=== PATIENT | female | born 1980 | race Caucasian/White ===

== ENCOUNTER 2017-11-07 18:39 | Inpatient (IN) | payer MEDICAID, SELFPAY ==
[2017-11-07] VITALS (9 sets, daily range): BP systolic 94–108; BP diastolic 53–63; PULSE 64–72; RESP 12–18; TEMP 36.9–37.2; O2SAT 86–96; BMI 24.8; BMI 23.8
[2017-11-07] MEDS: Ipratropium/Albuterol Sulfate 3 ML AMPUL.NEB INHALATION (19:34)
[2017-11-07 19:39] LABS: Absolute Lymphocyte Count 1.18 X10^3/ul (0.83-4.51); Absolute Neutrophil Count 4.3 X10^3/uL (2.0-7.7); Eosinophil# 0.01 X10^3/uL; Eosinophils% 0.2 % (0-5); Hematocrit 35.8 % (37-47); Hemoglobin 12.4 g/dl (12.0-15.0); Lymphocyte # 1.18 X10^3/ul (4.0); Lymphocyte % 19.5 % (19-41); Mean Corp Hgb Conc 34.6 g/gl (32-36); Mean Corpuscular Hgb 33.5 pg (27.0-32.0); Mean Corpuscular Volume 96.8 fL (81-99); Mean Platelet Vol. 11.9 fl (6.2-12.0); Monocyte# 0.51 X10^3/uL; Monocyte% 8.4 % (0-10); Neutrophil # 4.34 X10^3/uL (2.7-7.7); Neutrophil % 71.6 % (47-70); Platelet Count 77 K/mm3 (150-450); RBC Distribution Width SD 52.8 fl (35.1-43.9); White Blood Count 6.1 K/mm3 (4.4-11.0)
[2017-11-07 19:40] LABS: POSITIVE COUNT NO; POSITIVE DIFFERENTIAL NO; POSITIVE MORPHOLOGY NO
[2017-11-07] MEDS: Ketorolac 30 MG/ML Syringe IV (19:40)
[2017-11-07] MEDS: Ondansetron 4 MG/2 ML Vial IV (19:40)
[2017-11-07] MEDS: 0.9% Normal Saline 1,000 ML 1000 ML IV (19:40)
--- NOTE | 2017-11-07 19:50 | RAD_ITS ---
STUDY: X-RAY CHEST REASON FOR EXAM: Female, 37 years old. Cough TECHNIQUE: Frontal and lateral views of the chest. COMPARISON: 09/30/2017. FINDINGS: The lungs are clear and expanded. There is no demonstrated pleural abnormality. Normal size heart. Normal mediastinum and jayashree. Normal visualized pulmonary arteries. Normal visualized aortic arch and descending thoracic aorta. Normal visualized thoracic spine. Normal visualized ribs, clavicles, and shoulders. There is no demonstrated abnormality of the visualized soft tissue structures of the upper abdomen. RAD/Chest PA and Lateral IMPRESSION: Normal x-ray examination of the chest. Electronically Signed: Dieudonne Gonzalez MD at 20:10 EST , Service support ,
[2017-11-07 19:59] LABS: AST(SGOT) 293 U/L (15-37); Alanine Aminotransfer ALT/SGPT 59 U/L (13-56); Albumin, Serum 3.1 g/dL (3.2-5.0); Alkaline Phosphatase 117 U/L (45-117); Anion Gap 18 (5-15); BUN 52 mg/dL (7-18); BUN/Creat Ratio 44.1 RATIO (10-20); Bilirubin, Direct 2.04 mg/dL (0.00-0.30); Chloride 68 mmol/L (98-107); Creatinine, Serum 1.18 mg/dL (0.55-1.02); EST Glomerular Filtration Rate 54 mL/min (>60); Est Glom Filt Rate - Afr Amer 65 mL/min (>60); Estimated Creatinine Clearance 52.65 ml/min; Globulin 4.2 g/dL (2.2-4.2); Glucose 85 mg/dL (74-106); Lipase 707 U/L (73-393); Potassium 2.2 mmol/L (3.5-5.1); Protein, Total 7.3 g/dL (6.4-8.2); Sodium Level 119 mmol/L (136-145)
--- NOTE | 2017-11-07 20:03 | ED.RN ---
lab called with critical results. sodium level 119. Potassium level 2.2. Chloride level 68. Dr. Knight made aware. No new orders at this time
[2017-11-07 20:51] LABS: Magnesium 2.1 mg/dL (1.6-2.6)
--- NOTE | 2017-11-07 21:57 | PCM.HP.STD ---
Problem List (1) Alcohol withdrawal Status: Acute Qualifiers: Complication of substance-induced condition: uncomplicated Qualified Code(s): F10.230 - Alcohol dependence with withdrawal, uncomplicated (2) Pancreatitis, alcoholic, acute Status: Chronic Qualifiers: Acute pancreatitis complication: no infection or necrosis Qualified Code(s): K85.20 - Alcohol induced acute pancreatitis without necrosis or infection (3) Thrombocytopenia Status: Chronic (4) Essential hypertension Status: Chronic (5) Hypokalemia Status: Acute (6) URI (upper respiratory infection) Status: Acute History of Present Illness Date of Admission: 11/07/17 Chief Complaint: Hyponatremia The patient is a 37 year old F came to ER with complaint of generalized weakness and recent diagnosis of pancreatitis. She is having abdominal pain for last few weeks. She has alcoholic pancreatitis history. She also had cholecystectomy and was complicated with CBD injury which later required choledochojejunostomy. She drinks alcohol heavily with history of multiple episodes of relapses in the past. She drinks 1 pint of vodka for last 3 weeks. She also has chronic cough for more than 1 month but it is worse for last 1 week. She smokes three fourth pack of cigarettes every day. Denies fever or chills, sore throat. She was last admitted in September 28 and discharged on April 01, 2018 for acute alcoholic pancreatitis along with alcohol withdrawal. At that time patient had CT abdomen shows hepatosplenomegaly with diffuse fatty infiltration of liver. No evidence of acute abdominal or pelvic abnormality. She also had multiple episodes of vomiting, gastric in nature on past Sunday and has not been eating food or drinking water and alcohol. In ED, she was found to have severe hyponatremia, sodium 119, K2.2 and chloride 68, anion gap 18 and bicarb 33. BUN is high, 52 and creatinine 1.18. Ammonia 47. Alcohol level is high. [] Past Medical History Past Medical History (Chronic Problems): Chronic Problems Thrombocytopenia (Chronic) Essential hypertension (Chronic) Pancreatitis, alcoholic, acute (Chronic) Allergies No Known Allergies Allergy (Verified 11/07/17 18:44) Home Medications: Ambulatory Orders Medication Instructions Recorded Lisinopril 20 mg PO DAILY 09/28/17 Chlordiazepoxide [Librium] 25 mg PO TID PRN PRN #30 capsule 10/02/17 Metoprolol Tartrate [Lopressor 25 mg PO BID #60 tab 10/02/17 (beta avelino)] Nicotine [Nicoderm Cq] 21 mg TRANSDERM. DAILY #30 patch 10/02/17 Sertraline HCl [Zoloft] 50 mg PO DAILY #30 tab 10/02/17 Surgical History: cholecystectomy Smoking Status: Current every day smoker - *Family History Maternal History Items: No pertinent history Review of Systems Constitutional: Reports: Anorexia, Malaise, Weakness, Fatigue HEENT: Denies: Head Aches, Sinus Congestion, Sinus Drainage Cardiovascular: Denies: Chest Pain, Palpitations Respiratory: Reports: Cough, Sputum production, Wheezing. Denies: Shortness of breath at rest Gastrointestinal: Reports: Abdominal Pain, Constipation, Nausea, Vomiting. Denies: Hematemesis, Hematochezia Genitourinary: Denies: Dysuria Musculoskeletal: Denies: Joint Pain, Joint Tenderness Skin: Denies: Rash, Wounds Neurological: Reports: Incoordination, Tremor. Denies: Focal weakness, Numbness, Tingling Psychiatric: Denies: Anxiety, Depression, Homicidal Ideations, Suicidal Ideations Hematologic/ Lymphatic: Denies: Easy Bruising, Easy Bleeding VTE Information - Inpt Only VTE Present on Admission: No VTE Mechan Device Prophylaxis: SCD's VTE Pharm Prophylaxis ordered?: No Reason prophylaxis not ordered:: Procedure Not Indicated Patient Problems: Active and Suspected Problems Hypokalemia (Acute) URI (upper respiratory infection) (Acute) - Physical Exam General: Oriented x3, Cooperative, Lethargic HEENT: Atraumatic, PERRLA, EOMI, Normocephalic, - - Icterus present Oral: Dry Mucosa, - - No oropharyngeal erythema. Neck: Supple, No JVD, Negative Carotid Bruits Lungs: Diminished, Wheezes Cardiovascular: Regular rate, Regular Rhythm, Normal S1, Normal S2, No murmurs Abdomen: Bowel Sounds Present, Soft, Non Tender, Non-Distended Extremities: No edema, Capillary Refill Less than 3 Seconds Skin: No rashes, No breakdown Musculoskeletal: No Tenderness to Palpation of Joints or Extremities, Arthritic Changes Neurological: Cranial nerves II-XII grossly intact Psych/Mental Status: Normal Affect, Appropriate Vital Signs Temp Pulse Resp BP Pulse Ox 98.5 F 68 16 106/55 L 93 11/07/17 18:41 11/07/17 21:22 11/07/17 21:22 11/07/17 21:22 11/07/17 21:22 Assessment/Plan Active and Suspected Problems Hypokalemia (Acute) URI (upper respiratory infection) (Acute) The patient is a 37 year old F came to ER with complaint of generalized weakness and recent diagnosis of pancreatitis. She is having abdominal pain for last few weeks. She has alcoholic pancreatitis history. She also had cholecystectomy and was complicated with CBD injury which later required choledochojejunostomy. She drinks alcohol heavily with history of multiple episodes of relapses in the past. She drinks 1 pint of vodka for last 3 weeks. She was last admitted in September 28 and discharged on April 01, 2018 for acute alcoholic pancreatitis along with alcohol withdrawal. At that time patient had CT abdomen shows hepatosplenomegaly with diffuse fatty infiltration of liver. No evidence of acute abdominal or pelvic abnormality. She also had multiple episodes of vomiting, gastric in nature on past Sunday and has not been eating food or drinking water and alcohol. In ED, she was found to have severe hyponatremia, sodium 119, K2.2 and chloride 68, anion gap 18 and bicarb 33. BUN is high, 52 and creatinine 1.18. Ammonia 47. Alcohol level is high. 1. Severe hyponatremia, hypochloremia with non-anion gap metabolic acidosis, multiple causes, vomiting, Beer protomania, free water ingestion: Patient is being admitted on the PCU on the monitored bed. Elevated EKG ordered. I think sodium is not acute and started on IV fluid normal saline. Serum sodium checkup every 4 hour. Try to increase sodium slowly not more than 8 mEq in 24 hours. Consult nephrology. 2. Chronic alcohol use with history of recurrent relapse with alcohol withdrawal: Patient is started on [facility] protocol for stabilization for alcohol withdrawal. CIWA monitoring. Check serum folic acid, vitamin B12, thiamine tomorrow a.m. On IV fluid normal saline. 3. Severe hypokalemia: Potassium on replacement. Monitor BMP. Magnesium 2.1. 3. Acute on chronic alcoholic hepatitis associated with acute on recurrent alcoholic pancreatitis: Serum lipase is 707. Total bilirubin is 2.7 7, direct 2.0. AST 293, ALT 59. Keep the patient n.p.o. except medications. Monitor LFT and lipase. 4. URI symptoms with history of chronic smoking/nicotine dependence: On nicotine patch. Chest x-ray is normal. respiratory panel ordered. Symptomatic management. DVT prophylaxis: On bilateral SCDs. Laboratory Results 11/07/17 19:22: WBC 6.1, RBC 3.70 L, Hgb 12.4, Hct 35.8 L, MCV 96.8, MCH 33.5 H, MCHC 34.6, RDW 15.0 H, RDW Differential 52.8 H, Plt Count 77 L, MPV 11.9, Immature Gran % (Auto) 0.300, Neut % (Auto) 71.6 H, Lymph % (Auto) 19.5, [place] % (Auto) 8.4, Eos % (Auto) 0.2, Baso % (Auto) 0.0, Absolute Neuts (auto) 4.3, Absolute Lymphs (auto) 1.18, Total Counted Not Reportable 11/07/17 19:22: Sodium 119 L*, Potassium 2.2 L*, Chloride 68 L*, Carbon Dioxide 33.0 H, Anion Gap 18 H, BUN 52 H, Creatinine 1.18 H, Estim Creat Clear Calc 52.65, Est GFR (MDRD) Af Amer 65, Est GFR (MDRD) Non-Af 54 L, BUN/Creatinine Ratio 44.1 H, Glucose 85, Calcium 8.0 L, Total Bilirubin 2.70 H, Direct Bilirubin 2.04 H, AST 293 H, ALT 59 H, Alkaline Phosphatase 117, Total Protein 7.3, Albumin 3.1 L, Globulin 4.2, Lipase 707 H 11/07/17 19:22: Ethyl Alcohol 275.0 11/07/17 19:22: Magnesium 2.1 11/07/17 19:36: Ammonia 47.0 H Clinical Impression(s) from Imaging Studies Chest X-Ray 11/07/17 19:50 IMPRESSION: Normal x-ray examination of the chest. Electronically Signed: Dieudonne Gonzalez MD at 20:10 EST , Service support , Code Visit Inpatient E&M: [id number] Init Hosp L3
--- NOTE | 2017-11-07 22:06 | EKG12_ITS ---
Test Reason : HYPOKALEMIMA Blood Pressure : / mmHG Vent. Rate : 094 BPM Atrial Rate : 094 BPM P-R Int : 136 ms QRS Dur : 092 ms QT Int : 392 ms P-R-T Axes : 023 050 078 degrees QTc Int : 490 ms Normal sinus rhythm Prolonged QT Abnormal ECG When compared with ECG of 28-SEP-2017 13:04, Nonspecific T wave abnormality now evident in Lateral leads Confirmed by LAKE MARTINEZ, MANOHAR ([id number]), manager editorial ESME CORREA ([id number]) on 11/14/2017 1:20:39 PM Referred By: DR DODD Confirmed By:MANOHAR BETHEA MD
--- NOTE | 2017-11-07 23:30 | ED.VISSUMM ---
- ER Visit Summary Date of Service: 11/07/17 Chief Complaint: Sick History of Present Illness: The patient is a 37 F with no primary care physician. She is a poor informant. She is clearly intoxicated. She reports that she has been sick ever since being admitted to the hospital for pancreatitis last month. She reports that she has been drinking vodka today. Patient complains of subjective fever and chills. She has had a cough productive white sputum for the past week. She reports that she has had mild difficulty breathing and has been wheezing. She does not have an inhaler. She complains of abdominal pain for the past 10 days that is 8 out of 10 severity. Nothing makes this better or worse. She states that she has been nauseated and vomited 2 days ago. She had 5-6 episodes of diarrhea a day for the past 2 weeks. No blood in her stools or black tarry stools. No dysuria or frequency. She denies headache. She does complain of generalized weakness. Physical Examination: Vitals: 98.5, 108/53, 67, 16, 86% on room air which is hypoxic. General: Well-nourished and well-developed. Head: Normocephalic atraumatic. Neck: Supple, no lymphadenopathy. No JVD. Nontender. Cardiovascular: Regular rate and rhythm. No murmurs. Respiratory: No respiratory distress. Moderate wheezing bilaterally with decreased air movement. Abdominal: Soft, mild tenderness palpation is diffuse over her abductor abdomen, nondistended, normal bowel sounds. No guarding, rebound, or peritoneal signs. Back: Nontender. Extremities: Nontender, no edema. Skin: Normal color, no rash. Scleral icterus. Neurologic: Alert. Intoxicated. Not compliant with neurologic exam. Psych: Normal affect. Test Results: Chest x-ray is normal. CBC is more for hematocrit of 35.8, platelets of 77, segmented neutrophils of 72. Chem-7 is remarkable for a sodium of 119, potassium of 2.2, chloride of 68, CO2 of 33, glucose 1.18, BUN of 52, calcium 8.0. Blood alcohol level is 275. LFTs are marked for an albumin of 3.1, total bili of 2.7, direct bili of 2.04. ALT is 59. Lipase is 707. Ammonia is 47. Emergency Department Course and Treatment: Patient is treated albuterol and Atrovent aerosols. She was given Toradol and Zofran IV. She is given potassium p.o. She is sleeping and in no distress. Treatment Plan: The patient was discussed with Dr. Nunez. She will be admitted to the hospital for further evaluation and treatment. Disposition: Admitted in serious condition. Impression: 1. Hyponatremia. 2. Hypokalemia. 3. Hypoxia. 4. COPD. 5. Jaundice. 6. Pancreatitis. 7. Alcohol intoxication. 8. Thrombocytopenia. This note was generated with [employer] dictation software. It may contain incorrect words, spelling, and punctuation that were not noted in review of the chart prior to signing ED Disposition - Plan for ED Patient: Disposition: Acute Care Hospital [facility] Chief Complaint: Weakness
[2017-11-07 23:32] LABS: Pregnancy, Serum, hCG Quali. NEGATIVE Negative (0-9 Nonpreg)
[2017-11-07] MEDS: cloNIDine HCl 0.1 MG Tablet PO (23:32)
[2017-11-07] MEDS: Famotidine 20 MG Tablet PO (23:32)
[2017-11-07] MEDS: traZODone 50 MG Tablet PO (23:32)
--- NOTE | 2017-11-07 23:34 | ED.DCSUM_ITS ---
- ER Visit Summary Date of Service: 11/07/17 Chief Complaint: Sick History of Present Illness: The patient is a 37 F with no primary care physician. She is a poor informant. She is clearly intoxicated. She reports that she has been sick ever since being admitted to the hospital for pancreatitis last month. She reports that she has been drinking vodka today. Patient complains of subjective fever and chills. She has had a cough productive white sputum for the past week. She reports that she has had mild difficulty breathing and has been wheezing. She does not have an inhaler. She complains of abdominal pain for the past 10 days that is 8 out of 10 severity. Nothing makes this better or worse. She states that she has been nauseated and vomited 2 days ago. She had 5-6 episodes of diarrhea a day for the past 2 weeks. No blood in her stools or black tarry stools. No dysuria or frequency. She denies headache. She does complain of generalized weakness. Physical Examination: Vitals: 98.5, 108/53, 67, 16, 86% on room air which is hypoxic. General: Well-nourished and well-developed. Head: Normocephalic atraumatic. Neck: Supple, no lymphadenopathy. No JVD. Nontender. Cardiovascular: Regular rate and rhythm. No murmurs. Respiratory: No respiratory distress. Moderate wheezing bilaterally with decreased air movement. Abdominal: Soft, mild tenderness palpation is diffuse over her abductor abdomen , nondistended, normal bowel sounds. No guarding, rebound, or peritoneal signs. Back: Nontender. Extremities: Nontender, no edema. Skin: Normal color, no rash. Scleral icterus. Neurologic: Alert. Intoxicated. Not compliant with neurologic exam. Psych: Normal affect. Test Results: Chest x-ray is normal. CBC is more for hematocrit of 35.8, platelets of 77, segmented neutrophils of 72. Chem-7 is remarkable for a sodium of 119, potassium of 2.2, chloride of 68, CO2 of 33, glucose 1.18, BUN of 52, calcium 8.0. Blood alcohol level is 275. LFTs are marked for an albumin of 3.1, total bili of 2.7, direct bili of 2.04. ALT is 59. Lipase is 707. Ammonia is 47. Emergency Department Course and Treatment: Patient is treated albuterol and Atrovent aerosols. She was given Toradol and Zofran IV. She is given potassium p.o. She is sleeping and in no distress. Treatment Plan: The patient was discussed with Dr. Nunez. She will be admitted to the hospital for further evaluation and treatment. Disposition: Admitted in serious condition. Impression: 1. Hyponatremia. 2. Hypokalemia. 3. Hypoxia. 4. COPD. 5. Jaundice. 6. Pancreatitis. 7. Alcohol intoxication. 8. Thrombocytopenia. This note was generated with [employer] dictation software. It may contain incorrect words, spelling, and punctuation that were not noted in review of the chart prior to signing ED Disposition - Plan for ED Patient: Disposition: Acute Care Hospital [facility] Chief Complaint: Weakness
[2017-11-07 23:36] LABS: Anion Gap 16 (5-15); BUN 52 mg/dL (7-18); BUN/Creat Ratio 45.2 RATIO (10-20); Calcium,Total 7.4 mg/dL (8.5-10.1); Chloride 73 mmol/L (98-107); Creatinine, Serum 1.15 mg/dL (0.55-1.02); EST Glomerular Filtration Rate 56 mL/min (>60); Est Glom Filt Rate - Afr Amer 67 mL/min (>60); Estimated Creatinine Clearance 51.95 ml/min; Glucose 69 mg/dL (74-106); Potassium 2.5 mmol/L (3.5-5.1); Sodium Level 122 mmol/L (136-145)
[2017-11-08] VITALS (17 sets, daily range): BP systolic 87–117; BP diastolic 48–76; PULSE 75–110; RESP 16–20; TEMP 36.7–37.4; O2SAT 92–98
[2017-11-08 00:40] LABS: Vista UDS pH Range 6
[2017-11-08 00:54] LABS: Amphetamine Urine VISTA NEGATIVE (<1000 ng/mL); Barbiturate Urine VISTA NEGATIVE (< 200 ng/mL); Benzodiazepine Urine VISTA POSITIVE (< 200 ng/mL); Cocaine Urine VISTA NEGATIVE (< 300 ng/mL); Ecstacy Urine VISTA NEGATIVE (< 500 ng/mL); Methadone Urine VISTA NEGATIVE (< 300 ng/mL); PCP Urine VISTA NEGATIVE (< 25 ng/mL); THC Urine VISTA NEGATIVE (< 50 ng/mL)
[2017-11-08] MEDS: Ipratropium/Albuterol Sulfate 3 ML AMPUL.NEB INHALATION ×2 (01:23→16:28)
[2017-11-08] MEDS: chlordiazePOXIDE 25 MG Capsule 50 MG PO ×3 (04:46→16:09)
[2017-11-08 06:36] LABS: Hematocrit 33.4 % (37-47); Hemoglobin 11.5 g/dl (12.0-15.0); Mean Corp Hgb Conc 34.4 g/gl (32-36); Mean Corpuscular Hgb 33.9 pg (27.0-32.0); Mean Corpuscular Volume 98.5 fL (81-99); Mean Platelet Vol. 11.6 fl (6.2-12.0); Platelet Count 64 K/mm3 (150-450); RBC Distribution Width CV 14.1 % (11.6-14.6); Red Blood Count 3.39 M/mm3 (4.2-5.4); White Blood Count 4.2 K/mm3 (4.4-11.0)
[2017-11-08 06:39] LABS: Scan Indicated on CBC? Y/N NO
[2017-11-08 07:12] LABS: AST(SGOT) 250 U/L (15-37); Alanine Aminotransfer ALT/SGPT 53 U/L (13-56); Albumin, Serum 2.8 g/dL (3.2-5.0); Alkaline Phosphatase 110 U/L (45-117); Anion Gap 16 (5-15); BUN 44 mg/dL (7-18); BUN/Creat Ratio 42.3 RATIO (10-20); Bilirubin, Direct 1.67 mg/dL (0.00-0.30); Calcium,Total 7.5 mg/dL (8.5-10.1); Chloride 81 mmol/L (98-107); Creatinine, Serum 1.04 mg/dL (0.55-1.02); EST Glomerular Filtration Rate 63 mL/min (>60); Est Glom Filt Rate - Afr Amer 76 mL/min (>60); Estimated Creatinine Clearance 57.44 ml/min; GGTP 841 U/L (5-55); Globulin 3.9 g/dL (2.2-4.2); Glucose 73 mg/dL (74-106); Lipase 594 U/L (73-393); Magnesium 1.9 mg/dL (1.6-2.6); Potassium 2.8 mmol/L (3.5-5.1); Protein, Total 6.7 g/dL (6.4-8.2); Sodium Level 128 mmol/L (136-145)
[2017-11-08 09:29] LABS: Anion Gap 13 (5-15); BUN 41 mg/dL (7-18); BUN/Creat Ratio 44.1 RATIO (10-20); Calcium,Total 7.9 mg/dL (8.5-10.1); Chloride 83 mmol/L (98-107); Creatinine, Serum 0.93 mg/dL (0.55-1.02); EST Glomerular Filtration Rate 71 mL/min (>60); Est Glom Filt Rate - Afr Amer 86 mL/min (>60); Estimated Creatinine Clearance 64.23 ml/min; Glucose 80 mg/dL (74-106); Potassium 2.8 mmol/L (3.5-5.1); Sodium Level 130 mmol/L (136-145)
[2017-11-08] MEDS: Famotidine 20 MG Tablet PO ×2 (09:54→21:21)
[2017-11-08] MEDS: Multivitamins,Ther W-Minerals Tablet 1 TABLET PO (09:54)
[2017-11-08] MEDS: Folic Acid 1 MG Tablet PO (09:55)
[2017-11-08] MEDS: Thiamine Hydrochloride 100 MG Tablet PO (09:55)
[2017-11-08] MEDS: guaiFENesin 1,200 MG Tablet 1200 MG PO ×2 (09:59→21:22)
--- NOTE | 2017-11-08 12:09 | PCM.CONS.R ---
Problem List (1) Hyponatremia Status: Acute Consultation - Renal 11/08/17 PCP/ Referring MD: Requesting physician: Dr Nunez Primary care physician: No Primary Care Phys Reason for Consultation:: Hyponatremia - History of Present Illness History of Present Illness: The patient is a 37 year old F who came in with abdominal pain, nausea and vomitings. Renal service consulted for hyponatremia. Was recently admitted to hospital in sep with pancreatitis. says she never really got better since going home. over the last one week, abdominal complaints got worse. Sodium on admission 119. sodium last admission was normal at 135 or so currently still has abdominal discomfort - Allergies Allergies: Allergies No Known Allergies Allergy (Verified 11/07/17 18:44) - Current Medications Current Medications: Current Medications Acetaminophen (Tylenol) 500 mg PO Q4H PRN PRN PRN Reason: Temp > 100.4 F Al Hydroxide/Mg Hydroxide (Mylanta Ii) 30 ml PO Q6H PRN PRN PRN Reason: dyspesia Albuterol/Ipratropium (Duoneb) 3 ml INHALATION Q4H PRN PRN PRN Reason: sob Last Admin: 11/08/17 01:23 Dose: 3 ml Bisacodyl (Dulcolax) 5 mg PO DAILY PRN PRN PRN Reason: Constipation Bisacodyl (Dulcolax) 10 mg RECTAL DAILY PRN PRN Reason: Constipation Chlordiazepoxide (Librium) 50 mg PO Q6H [facility] PRN Reason: Taper Stop: 11/10/17 23:59 Last Admin: 11/08/17 09:52 Dose: 50 mg Clonidine (Catapres) 0.1 mg PO Q4 [facility] Last Admin: 11/08/17 09:57 Dose: Not Given Dicyclomine HCl (Bentyl) 20 mg PO Q6H PRN PRN PRN Reason: abdominal discomfort Famotidine (Pepcid) 20 mg PO BID [facility] Last Admin: 11/08/17 09:54 Dose: 20 mg Folic Acid (Folic Acid) 1 mg PO DAILY@0800 [facility] Last Admin: 11/08/17 09:55 Dose: 1 mg Guaifenesin (Mucinex) 1,200 mg PO BID [facility] Last Admin: 11/08/17 09:59 Dose: 1,200 mg Hydroxyzine Pamoate (Vistaril) 50 mg PO Q6H PRN PRN PRN Reason: Mild Anxiety (score 1/3) Potassium Chloride/Dextrose/Sod Cl () 1,000 mls @ 100 mls/hr IV .Q10H [facility] Last Admin: 11/08/17 09:54 Dose: 100 mls/hr Sodium Chloride () 1,000 mls @ 75 mls/hr IV .[id number] [facility] Loperamide HCl (Imodium) 2 - 4 mg PO UD PRN PRN Reason: LOOSE STOOLS Magnesium Hydroxide (Milk Of Magnesia) 30 ml PO DAILY PRN PRN Reason: Constipation Methocarbamol (Methocarbamol) 750 mg PO Q6H PRN PRN PRN Reason: Muscle Aches Multivitamins/Minerals ([facility]ivitamin With Minerals) [facility] Last Admin: 11/08/17 09:54 Dose: 1 tablet Nicotine (Nicoderm Cq (Pbkc)) 21 mg TRANSDERM. DAILY [facility] Last Admin: 11/08/17 09:55 Dose: 21 mg Nutritional Formula (Lactose Free) (Ensure Enlive) 120 ml PO 4X/DAY [facility] Last Admin: 11/08/17 09:52 Dose: 120 ml Ondansetron HCl (Zofran Odt) 4 mg PO Q6H PRN PRN PRN Reason: NAUSEA Potassium Chloride (K-Dur) [facility] Pramipexole Dihydrochloride (Mirapex) 0.25 mg PO Q12H PRN PRN PRN Reason: Restless legs Quetiapine Fumarate (Seroquel) 25 mg PO Q6H PRN PRN PRN Reason: Moderate Anxiety (score 2/3) Senna (Senokot) 1 tablet PO QHS PRN PRN Reason: Constipation Senna/Docusate Sodium (Senokot-S, Brandi-Colace) 2 tablet PO BID PRN PRN PRN Reason: Constipation Sodium Chloride () 5 - 30 ml IV UD PRN PRN Reason: SALINE FLUSH Thiamine HCl (Vitamin B1) [facility] Last Admin: 11/08/17 09:55 Dose: 100 mg Trazodone HCl (Desyrel) 50 mg PO QHS [facility] Last Admin: 11/07/17 23:32 Dose: 50 mg - Past Medical History Past Medical History (Chronic Problems): Chronic Problems Thrombocytopenia (Chronic) Essential hypertension (Chronic) Pancreatitis, alcoholic, acute (Chronic) - Past Surgical History Surgical History: cholecystectomy - Social History Smoking Status: Current every day smoker - Family History Maternal History Items: No pertinent history Review of Systems Constitutional: Denies: Chills, Fever, Weight Change HEENT: Denies: Head Aches, Sinus Congestion, Sinus Drainage Cardiovascular: Denies: Chest Pain, Palpitations Respiratory: Denies: Cough, Shortness of breath at rest, Sputum production Gastrointestinal: Reports: Abdominal Pain, Nausea, Vomiting Genitourinary: Denies: Dysuria Musculoskeletal: Denies: Joint Pain, Joint Tenderness Skin: Denies: Rash, Wounds Neurological: Denies: Numbness, Tingling, Focal weakness Psychiatric: Denies: Anxiety, Depression, Homicidal Ideations, Suicidal Ideations Hematologic/ Lymphatic: Denies: Easy Bruising, Easy Bleeding Patient Problems: Active and Suspected Problems Hypokalemia (Acute) URI (upper respiratory infection) (Acute) Hyponatremia (Acute) - Physical Exam General: Alert, Oriented x3, Cooperative HEENT: Atraumatic, PERRLA, EOMI, Normocephalic Neck: Supple, No JVD, Negative Carotid Bruits Lungs: Clear to auscultation, Normal air movement Cardiovascular: Regular rate, No murmurs Abdomen: Bowel Sounds Present, Soft, Non Tender Extremities: No edema, Capillary Refill Less than 3 Seconds Skin: No rashes, No breakdown Musculoskeletal: No Tenderness to Palpation of Joints or Extremities Neurological: Cranial nerves II-XII grossly intact Psych/Mental Status: Normal Affect, Appropriate Vital Signs Temp Pulse Resp BP Pulse Ox 98.8 F 85 18 100/60 93 11/08/17 09:38 11/08/17 09:38 11/08/17 09:38 11/08/17 09:38 11/08/17 09:38 Oxygen Flow Rate 2 Oxygen Delivery Method Nasal Cannula Weight: 50.1 kg Body Mass Index (BMI) 23.8 Intake and Output for Last 24 Hours 11/06/17 11/07/17 11/08/17 23:59 23:59 23:59 Intake Total 996 / 996 Balance 996 / 996 Microbiology Past 72 Hours 11/08/17 01:26 Respiratory Panel (PCR) - Final Interface Orders Laboratory Tests Past 24 Hrs 11/07/17 11/07/17 11/07/17 22:40 22:40 22:40 WBC RBC Hgb Hct MCV MCH MCHC RDW RDW Differential Plt Count MPV Sodium 122 L Potassium 2.5 L* Chloride 73 L* Carbon Dioxide 33.0 H Anion Gap 16 H BUN 52 H Creatinine 1.15 H Estim Creat Clear Calc 51.95 Est GFR (MDRD) Af Amer 67 Est GFR (MDRD) Non-Af 56 L BUN/Creatinine Ratio 45.2 H Glucose 69 L Calcium 7.4 L Magnesium Total Bilirubin Direct Bilirubin GGT AST ALT Alkaline Phosphatase Total Protein Albumin Globulin Lipase Whole Bld Vitamin B1 Vitamin B12 Folate Serum , Qual NEGATIVE Urine Opiates Screen Urine Methadone Screen Ur Barbiturates Screen Ur Phencyclidine Scrn Ur Amphetamines Screen U Methamphetamin-MDMA U Benzodiazepines Scrn Urine Cocaine Screen U Cannabinoids Screen Ur Drug Screen Comment Ethyl Alcohol 200.0 11/08/17 11/08/17 11/08/17 00:31 06:05 06:05 WBC 4.2 L RBC 3.39 L Hgb 11.5 L Hct 33.4 L MCV 98.5 MCH 33.9 H MCHC 34.4 RDW 14.1 RDW Differential 49.0 H Plt Count 64 L MPV 11.6 Sodium 128 L Potassium 2.8 L Chloride 81 L Carbon Dioxide 31.0 Anion Gap 16 H BUN 44 H Creatinine 1.04 H Estim Creat Clear Calc 57.44 Est GFR (MDRD) Af Amer 76 Est GFR (MDRD) Non-Af 63 BUN/Creatinine Ratio 42.3 H Glucose 73 L Calcium 7.5 L Magnesium 1.9 Total Bilirubin 2.40 H Direct Bilirubin 1.67 H GGT 841 H AST 250 H ALT 53 Alkaline Phosphatase 110 Total Protein 6.7 Albumin 2.8 L Globulin 3.9 Lipase 594 H Whole Bld Vitamin B1 Vitamin B12 Folate 1.80 L Serum , Qual Urine Opiates Screen NEGATIVE Urine Methadone Screen NEGATIVE Ur Barbiturates Screen NEGATIVE Ur Phencyclidine Scrn NEGATIVE Ur Amphetamines Screen NEGATIVE U Methamphetamin-MDMA NEGATIVE U Benzodiazepines Scrn POSITIVE H Urine Cocaine Screen NEGATIVE U Cannabinoids Screen NEGATIVE Ur Drug Screen Comment Ethyl Alcohol 11/08/17 11/08/17 11/08/17 06:05 06:05 08:55 WBC RBC Hgb Hct MCV MCH MCHC RDW RDW Differential Plt Count MPV Sodium 130 L Potassium 2.8 L Chloride 83 L Carbon Dioxide 34.0 H Anion Gap 13 BUN 41 H Creatinine 0.93 Estim Creat Clear Calc 64.23 Est GFR (MDRD) Af Amer 86 Est GFR (MDRD) Non-Af 71 BUN/Creatinine Ratio 44.1 H Glucose 80 Calcium 7.9 L Magnesium Total Bilirubin Direct Bilirubin GGT AST ALT Alkaline Phosphatase Total Protein Albumin Globulin Lipase Whole Bld Vitamin B1 Pending Vitamin B12 Pending Folate Serum , Qual Urine Opiates Screen Urine Methadone Screen Ur Barbiturates Screen Ur Phencyclidine Scrn Ur Amphetamines Screen U Methamphetamin-MDMA U Benzodiazepines Scrn Urine Cocaine Screen U Cannabinoids Screen Ur Drug Screen Comment Ethyl Alcohol Assessment/Plan Active and Suspected Problems Hypokalemia (Acute) URI (upper respiratory infection) (Acute) Hyponatremia (Acute) Hyponatremia. severe. Likely hypovolemic related to poor oral intake. Sodium levels last month were normal. History of ETOH abuse as per friends at bedside. There could be a component of beer potomania also. sodium values have increased from 119 to 131 within last 12 hours. higher than ideal increase D5W for now to keep sodium closer to 125. Will stop tomorrow likely if her abdominal pain is better Hypokalemia. Likely related to GI losses. repleted
--- NOTE | 2017-11-08 12:14 | CON.PCM_ITS ---
Problem List (1) Hyponatremia Status: Acute Consultation - Renal 11/08/17 PCP/ Referring MD: Requesting physician: Dr Nunez Primary care physician: No Primary Care Phys Reason for Consultation:: Hyponatremia - History of Present Illness History of Present Illness: The patient is a 37 year old F who came in with abdominal pain, nausea and vomitings. Renal service consulted for hyponatremia. Was recently admitted to hospital in sep with pancreatitis. says she never really got better since going home. over the last one week, abdominal complaints got worse. Sodium on admission 119. sodium last admission was normal at 135 or so currently still has abdominal discomfort - Allergies Allergies: Allergies No Known Allergies Allergy (Verified 11/07/17 18:44) - Current Medications Current Medications: Current Medications Acetaminophen (Tylenol) 500 mg PO Q4H PRN PRN PRN Reason: Temp > 100.4 F Al Hydroxide/Mg Hydroxide (Mylanta Ii) 30 ml PO Q6H PRN PRN PRN Reason: dyspesia Albuterol/Ipratropium (Duoneb) 3 ml INHALATION Q4H PRN PRN PRN Reason: sob Last Admin: 11/08/17 01:23 Dose: 3 ml Bisacodyl (Dulcolax) 5 mg PO DAILY PRN PRN PRN Reason: Constipation Bisacodyl (Dulcolax) 10 mg RECTAL DAILY PRN PRN Reason: Constipation Chlordiazepoxide (Librium) 50 mg PO Q6H [facility] PRN Reason: Taper Stop: 11/10/17 23:59 Last Admin: 11/08/17 09:52 Dose: 50 mg Clonidine (Catapres) 0.1 mg PO Q4 [facility] Last Admin: 11/08/17 09:57 Dose: Not Given Dicyclomine HCl (Bentyl) 20 mg PO Q6H PRN PRN PRN Reason: abdominal discomfort Famotidine (Pepcid) 20 mg PO BID [facility] Last Admin: 11/08/17 09:54 Dose: 20 mg Folic Acid (Folic Acid) 1 mg PO DAILY@0800 [facility] Last Admin: 11/08/17 09:55 Dose: 1 mg Guaifenesin (Mucinex) 1,200 mg PO BID [facility] Last Admin: 11/08/17 09:59 Dose: 1,200 mg Hydroxyzine Pamoate (Vistaril) 50 mg PO Q6H PRN PRN PRN Reason: Mild Anxiety (score 1/3) Potassium Chloride/Dextrose/Sod Cl () 1,000 mls @ 100 mls/hr IV .Q10H [facility] Last Admin: 11/08/17 09:54 Dose: 100 mls/hr Sodium Chloride () 1,000 mls @ 75 mls/hr IV .[id number] [facility] Loperamide HCl (Imodium) 2 - 4 mg PO UD PRN PRN Reason: LOOSE STOOLS Magnesium Hydroxide (Milk Of Magnesia) 30 ml PO DAILY PRN PRN Reason: Constipation Methocarbamol (Methocarbamol) 750 mg PO Q6H PRN PRN PRN Reason: Muscle Aches Multivitamins/Minerals ([facility] Minerals) [facility] Last Admin: 11/08/17 09:54 Dose: 1 tablet Nicotine (Nicoderm Cq (Pbkc)) 21 mg TRANSDERM. DAILY [facility] Last Admin: 11/08/17 09:55 Dose: 21 mg Nutritional Formula (Lactose Free) (Ensure Enlive) 120 ml PO 4X/DAY [facility] Last Admin: 11/08/17 09:52 Dose: 120 ml Ondansetron HCl (Zofran Odt) 4 mg PO Q6H PRN PRN PRN Reason: NAUSEA Potassium Chloride ([facility]-Dur) [facility] Pramipexole Dihydrochloride (Mirapex) 0.25 mg PO Q12H PRN PRN PRN Reason: Restless legs Quetiapine Fumarate (Seroquel) 25 mg PO Q6H PRN PRN PRN Reason: Moderate Anxiety (score 2/3) Senna (Senokot) 1 tablet PO QHS PRN PRN Reason: Constipation Senna/Docusate Sodium (Senokot-S, Brandi-Colace) 2 tablet PO BID PRN PRN PRN Reason: Constipation Sodium Chloride () 5 - 30 ml IV UD PRN PRN Reason: SALINE FLUSH Thiamine HCl (Vitamin B1) [facility] Last Admin: 11/08/17 09:55 Dose: 100 mg Trazodone HCl (Desyrel) 50 mg PO QHS [facility] Last Admin: 11/07/17 23:32 Dose: 50 mg - Past Medical History Past Medical History (Chronic Problems): Chronic Problems Thrombocytopenia (Chronic) Essential hypertension (Chronic) Pancreatitis, alcoholic, acute (Chronic) - Past Surgical History Surgical History: cholecystectomy - Social History Smoking Status: Current every day smoker - Family History Maternal History Items: No pertinent history Review of Systems Constitutional: Denies: Chills, Fever, Weight Change HEENT: Denies: Head Aches, Sinus Congestion, Sinus Drainage Cardiovascular: Denies: Chest Pain, Palpitations Respiratory: Denies: Cough, Shortness of breath at rest, Sputum production Gastrointestinal: Reports: Abdominal Pain, Nausea, Vomiting Genitourinary: Denies: Dysuria Musculoskeletal: Denies: Joint Pain, Joint Tenderness Skin: Denies: Rash, Wounds Neurological: Denies: Numbness, Tingling, Focal weakness Psychiatric: Denies: Anxiety, Depression, Homicidal Ideations, Suicidal Ideations Hematologic/ Lymphatic: Denies: Easy Bruising, Easy Bleeding Patient Problems: Active and Suspected Problems Hypokalemia (Acute) URI (upper respiratory infection) (Acute) Hyponatremia (Acute) - Physical Exam General: Alert, Oriented x3, Cooperative HEENT: Atraumatic, PERRLA, EOMI, Normocephalic Neck: Supple, No JVD, Negative Carotid Bruits Lungs: Clear to auscultation, Normal air movement Cardiovascular: Regular rate, No murmurs Abdomen: Bowel Sounds Present, Soft, Non Tender Extremities: No edema, Capillary Refill Less than 3 Seconds Skin: No rashes, No breakdown Musculoskeletal: No Tenderness to Palpation of Joints or Extremities Neurological: Cranial nerves II-XII grossly intact Psych/Mental Status: Normal Affect, Appropriate Vital Signs Temp Pulse Resp BP Pulse Ox 98.8 F 85 18 100/60 93 11/08/17 09:38 11/08/17 09:38 11/08/17 09:38 11/08/17 09:38 11/08/17 09:38 Oxygen Flow Rate 2 Oxygen Delivery Method Nasal Cannula Weight: 50.1 kg Body Mass Index (BMI) 23.8 Intake and Output for Last 24 Hours 11/06/17 11/07/17 11/08/17 23:59 23:59 23:59 Intake Total 996 / 996 Balance 996 / 996 Microbiology Past 72 Hours 11/08/17 01:26 Respiratory Panel (PCR) - Final Interface Orders Laboratory Tests Past 24 Hrs 11/07/17 11/07/17 11/07/17 22:40 22:40 22:40 WBC RBC Hgb Hct MCV MCH MCHC RDW RDW Differential Plt Count MPV Sodium 122 L Potassium 2.5 L* Chloride 73 L* Carbon Dioxide 33.0 H Anion Gap 16 H BUN 52 H Creatinine 1.15 H Estim Creat Clear Calc 51.95 Est GFR (MDRD) Af Amer 67 Est GFR (MDRD) Non-Af 56 L BUN/Creatinine Ratio 45.2 H Glucose 69 L Calcium 7.4 L Magnesium Total Bilirubin Direct Bilirubin GGT AST ALT Alkaline Phosphatase Total Protein Albumin Globulin Lipase Whole Bld Vitamin B1 Vitamin B12 Folate Serum , Qual NEGATIVE Urine Opiates Screen Urine Methadone Screen Ur Barbiturates Screen Ur Phencyclidine Scrn Ur Amphetamines Screen U Methamphetamin-MDMA U Benzodiazepines Scrn Urine Cocaine Screen U Cannabinoids Screen Ur Drug Screen Comment Ethyl Alcohol 200.0 11/08/17 11/08/17 11/08/17 00:31 06:05 06:05 WBC 4.2 L RBC 3.39 L Hgb 11.5 L Hct 33.4 L MCV 98.5 MCH 33.9 H MCHC 34.4 RDW 14.1 RDW Differential 49.0 H Plt Count 64 L MPV 11.6 Sodium 128 L Potassium 2.8 L Chloride 81 L Carbon Dioxide 31.0 Anion Gap 16 H BUN 44 H Creatinine 1.04 H Estim Creat Clear Calc 57.44 Est GFR (MDRD) Af Amer 76 Est GFR (MDRD) Non-Af 63 BUN/Creatinine Ratio 42.3 H Glucose 73 L Calcium 7.5 L Magnesium 1.9 Total Bilirubin 2.40 H Direct Bilirubin 1.67 H GGT 841 H AST 250 H ALT 53 Alkaline Phosphatase 110 Total Protein 6.7 Albumin 2.8 L Globulin 3.9 Lipase 594 H Whole Bld Vitamin B1 Vitamin B12 Folate 1.80 L Serum , Qual Urine Opiates Screen NEGATIVE Urine Methadone Screen NEGATIVE Ur Barbiturates Screen NEGATIVE Ur Phencyclidine Scrn NEGATIVE Ur Amphetamines Screen NEGATIVE U Methamphetamin-MDMA NEGATIVE U Benzodiazepines Scrn POSITIVE H Urine Cocaine Screen NEGATIVE U Cannabinoids Screen NEGATIVE Ur Drug Screen Comment Ethyl Alcohol 11/08/17 11/08/17 11/08/17 06:05 06:05 08:55 WBC RBC Hgb Hct MCV MCH MCHC RDW RDW Differential Plt Count MPV Sodium 130 L Potassium 2.8 L Chloride 83 L Carbon Dioxide 34.0 H Anion Gap 13 BUN 41 H Creatinine 0.93 Estim Creat Clear Calc 64.23 Est GFR (MDRD) Af Amer 86 Est GFR (MDRD) Non-Af 71 BUN/Creatinine Ratio 44.1 H Glucose 80 Calcium 7.9 L Magnesium Total Bilirubin Direct Bilirubin GGT AST ALT Alkaline Phosphatase Total Protein Albumin Globulin Lipase Whole Bld Vitamin B1 Pending Vitamin B12 Pending Folate Serum , Qual Urine Opiates Screen Urine Methadone Screen Ur Barbiturates Screen Ur Phencyclidine Scrn Ur Amphetamines Screen U Methamphetamin-MDMA U Benzodiazepines Scrn Urine Cocaine Screen U Cannabinoids Screen Ur Drug Screen Comment Ethyl Alcohol Assessment/Plan Active and Suspected Problems Hypokalemia (Acute) URI (upper respiratory infection) (Acute) Hyponatremia (Acute) Hyponatremia. severe. Likely hypovolemic related to poor oral intake. Sodium levels last month were normal. History of ETOH abuse as per friends at bedside. There could be a component of beer potomania also. sodium values have increased from 119 to 131 within last 12 hours. higher than ideal increase D5W for now to keep sodium closer to 125. Will stop tomorrow likely if her abdominal pain is better Hypokalemia. Likely related to GI losses. repleted
[2017-11-08] MEDS: cloNIDine HCl 0.1 MG Tablet PO ×2 (13:09→21:22)
[2017-11-08] MEDS: Acetaminophen 500 MG Tablet PO (13:13)
--- NOTE | 2017-11-08 14:26 | PCM.PROGNOTE ---
Patient Problems: Active and Suspected Problems Hypokalemia (Acute) URI (upper respiratory infection) (Acute) Hyponatremia (Acute) Subjective: Patient seen and examined. Complains of dry mouth and thirst. Denies nausea, vomiting. Complains of intermittent diarrhea and abdominal cramping. Denies other associated complaints. Patient has poor eye contact during assessment. When asked if there was a trigger to recent relapse in alcohol use, patient states she does not know what her triggers are. - Physical Exam General: Alert, Oriented x3, Cooperative HEENT: Atraumatic, PERRLA, EOMI, Normocephalic Oral: Dry Mucosa Neck: Supple, No JVD, Negative Carotid Bruits Lungs: Diminished, Wheezes Cardiovascular: Regular rate, Regular Rhythm, Normal S1, Normal S2, No murmurs Abdomen: Bowel Sounds Present, Soft, Non-Distended, Tender - Mild mid abdomen tenderness Extremities: No clubbing, No cyanosis, No edema, Capillary Refill Less than 3 Seconds Skin: No rashes, No breakdown Musculoskeletal: No Tenderness to Palpation of Joints or Extremities Neurological: Cranial nerves II-XII grossly intact, Neuro grossly intact Psych/Mental Status: Normal Affect, Appropriate Vital Signs Temp Pulse Resp BP Pulse Ox 98.1 F 97 18 105/66 94 11/08/17 13:15 11/08/17 13:15 11/08/17 13:15 11/08/17 13:15 11/08/17 13:15 Oxygen Flow Rate 2 Oxygen Delivery Method Nasal Cannula Weight: 50.1 kg Body Mass Index (BMI) 23.8 Intake and Output for Last 24 Hours 11/06/17 11/07/17 11/08/17 23:59 23:59 23:59 Intake Total 2143 / 2143 Balance 2143 / 2143 Microbiology Past 72 Hours 11/08/17 01:26 Respiratory Panel (PCR) - Final Interface Orders Laboratory Tests Past 24 Hrs 11/07/17 11/07/17 11/07/17 22:40 22:40 22:40 WBC RBC Hgb Hct MCV MCH MCHC RDW RDW Differential Plt Count MPV Sodium 122 L Potassium 2.5 L* Chloride 73 L* Carbon Dioxide 33.0 H Anion Gap 16 H BUN 52 H Creatinine 1.15 H Estim Creat Clear Calc 51.95 Est GFR (MDRD) Af Amer 67 Est GFR (MDRD) Non-Af 56 L BUN/Creatinine Ratio 45.2 H Glucose 69 L Calcium 7.4 L Magnesium Total Bilirubin Direct Bilirubin GGT AST ALT Alkaline Phosphatase Total Protein Albumin Globulin Lipase Whole Bld Vitamin B1 Vitamin B12 Folate Serum , Qual NEGATIVE Urine Opiates Screen Urine Methadone Screen Ur Barbiturates Screen Ur Phencyclidine Scrn Ur Amphetamines Screen U Methamphetamin-MDMA U Benzodiazepines Scrn Urine Cocaine Screen U Cannabinoids Screen Ur Drug Screen Comment Ethyl Alcohol 200.0 11/08/17 11/08/17 11/08/17 00:31 06:05 06:05 WBC 4.2 L RBC 3.39 L Hgb 11.5 L Hct 33.4 L MCV 98.5 MCH 33.9 H MCHC 34.4 RDW 14.1 RDW Differential 49.0 H Plt Count 64 L MPV 11.6 Sodium 128 L Potassium 2.8 L Chloride 81 L Carbon Dioxide 31.0 Anion Gap 16 H BUN 44 H Creatinine 1.04 H Estim Creat Clear Calc 57.44 Est GFR (MDRD) Af Amer 76 Est GFR (MDRD) Non-Af 63 BUN/Creatinine Ratio 42.3 H Glucose 73 L Calcium 7.5 L Magnesium 1.9 Total Bilirubin 2.40 H Direct Bilirubin 1.67 H GGT 841 H AST 250 H ALT 53 Alkaline Phosphatase 110 Total Protein 6.7 Albumin 2.8 L Globulin 3.9 Lipase 594 H Whole Bld Vitamin B1 Vitamin B12 Folate 1.80 L Serum , Qual Urine Opiates Screen NEGATIVE Urine Methadone Screen NEGATIVE Ur Barbiturates Screen NEGATIVE Ur Phencyclidine Scrn NEGATIVE Ur Amphetamines Screen NEGATIVE U Methamphetamin-MDMA NEGATIVE U Benzodiazepines Scrn POSITIVE H Urine Cocaine Screen NEGATIVE U Cannabinoids Screen NEGATIVE Ur Drug Screen Comment Ethyl Alcohol 11/08/17 11/08/17 11/08/17 06:05 06:05 08:55 WBC RBC Hgb Hct MCV MCH MCHC RDW RDW Differential Plt Count MPV Sodium 130 L Potassium 2.8 L Chloride 83 L Carbon Dioxide 34.0 H Anion Gap 13 BUN 41 H Creatinine 0.93 Estim Creat Clear Calc 64.23 Est GFR (MDRD) Af Amer 86 Est GFR (MDRD) Non-Af 71 BUN/Creatinine Ratio 44.1 H Glucose 80 Calcium 7.9 L Magnesium Total Bilirubin Direct Bilirubin GGT AST ALT Alkaline Phosphatase Total Protein Albumin Globulin Lipase Whole Bld Vitamin B1 Pending Vitamin B12 Pending Folate Serum , Qual Urine Opiates Screen Urine Methadone Screen Ur Barbiturates Screen Ur Phencyclidine Scrn Ur Amphetamines Screen U Methamphetamin-MDMA U Benzodiazepines Scrn Urine Cocaine Screen U Cannabinoids Screen Ur Drug Screen Comment Ethyl Alcohol Assessment/Plan Active and Suspected Problems Hypokalemia (Acute) URI (upper respiratory infection) (Acute) Hyponatremia (Acute) Patient is a 37-year-old female admitted 11/07/17 due to abdominal pain, nausea, vomiting, diarrhea since being discharged from hospital 10/04/17 where she was treated for acute alcoholic pancreatitis and acute alcohol withdrawal. 1. Electrolyte imbalance secondary to hypovolemia secondary to nausea, vomiting, diarrhea and alcohol use-severe hyponatremia, hypokalemia, hypochloremia on admission. Nephrology consulted. Sodium improved to 131 from 119 on admission. Fluids switched to D5W. Potassium replaced orally. Monitor BMP. 2. Chronic alcohol use, recent relapse- Follows with [facility] as outpatient. [facility] protocol. Folic acid, thiamine, multivitamin supplementation. Continue medical stabilization per alcohol withdrawal protocol. Alcohol level 275 on admission. Tox screen positive for benzos. 3. Acute on chronic alcoholic hepatitis with acute on chronic recurrent alcoholic pancreatitis-NPO. Continue IV fluids. Lipase improving. AST/ALT improving. CT of abdomen and pelvis 09/28/2017 showed hepatosplenomegaly with diffuse fatty infiltration of the liver, prior cholecystectomy. 4. Acute hypoxia-chest x-ray unremarkable. Respiratory panel negative. Patient is afebrile with no leukocytosis. Suspect underlying COPD given extensive smoking history. Recommend outpatient PFTs and follow-up with pulmonary medicine. Wean oxygen as tolerated to maintain O2 at or above 90%. 5. Acute kidney injury secondary to dehydration/hypovolemia-continue IV fluids. Monitor BMP. Creatinine improved to 0.93 from 1.18 on admission. 6. Chronic thrombocytopenia secondary to chronic alcohol abuse-monitor CBC. 7. Depression-continue home sertraline regimen. 8. Hypertension-stable, lisinopril on hold. 9. Tobacco abuse-3 pack per day smoker. Encourage smoking cessation. Nicotine replacement patch. DVT prophylaxis- SCDs. This patient was seen by KARI HolmanC under the supervision of Dr. Song.
--- NOTE | 2017-11-08 15:18 | CASEMGMT ---
See Social Work Assessment SW met with patient, introduced self and role at [facility]. Patient lives with her 4 kids, her sister, and her sister's child. She normally works and they are holding her job. She is active with [employer]. She said she is going to have to continue with the program for awhile. She has a good support system between her sister, her mom, and friends. She said she started drinking when she and her in February. She is not sure what triggers her to drink. Patient does not have a primary care doctor and is open to an appt being made or even a list. JULIAN will work on this for patient. Caitlin PELAEZ
[2017-11-08] MEDS: traZODone 50 MG Tablet PO (21:22)
[2017-11-09] VITALS (16 sets, daily range): BP systolic 89–121; BP diastolic 60–86; PULSE 79–106; RESP 17–20; TEMP 36.6–37.1; O2SAT 93–99
[2017-11-09] MEDS: chlordiazePOXIDE 25 MG Capsule 50 MG PO ×2 (00:09→09:21)
[2017-11-09] MEDS: cloNIDine HCl 0.1 MG Tablet PO ×2 (02:09→05:48)
[2017-11-09 05:51] LABS: AST(SGOT) 212 U/L (15-37); Alanine Aminotransfer ALT/SGPT 52 U/L (13-56); Albumin, Serum 2.8 g/dL (3.2-5.0); Alkaline Phosphatase 91 U/L (45-117); Anion Gap 5 (5-15); BUN 19 mg/dL (7-18); BUN/Creat Ratio 31.1 RATIO (10-20); Bilirubin, Direct 0.67 mg/dL (0.00-0.30); Calcium,Total 8.7 mg/dL (8.5-10.1); Chloride 85 mmol/L (98-107); Creatinine, Serum 0.61 mg/dL (0.55-1.02); EST Glomerular Filtration Rate 116 mL/min (>60); Est Glom Filt Rate - Afr Amer 140 mL/min (>60); Estimated Creatinine Clearance 97.93 ml/min; Globulin 3.5 g/dL (2.2-4.2); Glucose 105 mg/dL (74-106); Lipase 888 U/L (73-393); Potassium 3.6 mmol/L (3.5-5.1); Protein, Total 6.3 g/dL (6.4-8.2); Sodium Level 129 mmol/L (136-145)
[2017-11-09 06:28] LABS: Hematocrit 31.9 % (37-47); Hemoglobin 10.6 g/dl (12.0-15.0); Mean Corp Hgb Conc 33.2 g/gl (32-36); Mean Corpuscular Hgb 34.1 pg (27.0-32.0); Mean Corpuscular Volume 102.6 fL (81-99); Mean Platelet Vol. 11.4 fl (6.2-12.0); RBC Distribution Width CV 14.2 % (11.6-14.6); RBC Distribution Width SD 52.2 fl (35.1-43.9); Red Blood Count 3.11 M/mm3 (4.2-5.4); White Blood Count 3.3 K/mm3 (4.4-11.0)
[2017-11-09 06:32] LABS: Scan Indicated on CBC? Y/N YES- FLAGS NOTED
[2017-11-09 06:33] LABS: Platelet Count 48 K/mm3 (150-450)
[2017-11-09 06:51] LABS: Differential Comment SCAN
[2017-11-09] MEDS: Ipratropium/Albuterol Sulfate 3 ML AMPUL.NEB INHALATION ×2 (07:20→23:27)
[2017-11-09 08:48] LABS: Vitamin B12 1165 pg/mL (211-911)
[2017-11-09] MEDS: Famotidine 20 MG Tablet PO ×2 (09:15→23:02)
[2017-11-09] MEDS: Thiamine Hydrochloride 100 MG Tablet PO (09:15)
[2017-11-09] MEDS: guaiFENesin 1,200 MG Tablet 1200 MG PO ×2 (09:15→23:02)
[2017-11-09] MEDS: Multivitamins,Ther W-Minerals Tablet 1 TABLET PO (09:15)
[2017-11-09] MEDS: Folic Acid 1 MG Tablet PO (09:16)
--- NOTE | 2017-11-09 09:35 | RAD_ITS ---
STUDY: X-RAY CHEST REASON FOR EXAM: Female, 37 years old. Cough. Severe hyponatremia. Chronic alcohol disorder. TECHNIQUE: AP and lateral views of the chest. COMPARISON: Comparison is made with prior study dated November 07, 2017. FINDINGS: EKG electrodes are seen. The lungs are clear and expanded. There is no demonstrated pleural abnormality. Normal size heart. Calcified right hilar lymph nodes. Normal visualized pulmonary arteries. Normal visualized aortic arch and descending thoracic aorta. Normal visualized thoracic spine. Normal visualized ribs, clavicles, and shoulders. There is no demonstrated abnormality of the visualized soft tissue structures of the upper abdomen. RAD/Chest PA and Lateral IMPRESSION: No acute abnormality is seen. Electronically Signed: Killian Hamm MD at 10:54 EST Tel [phone], Service support ,
--- NOTE | 2017-11-09 11:18 | PCM.PN.REN ---
Patient Problems: Active and Suspected Problems Hypokalemia (Acute) URI (upper respiratory infection) (Acute) Hyponatremia (Acute) Subjective: no new complaints - Physical Exam General: Alert, Oriented x3, Cooperative HEENT: Atraumatic, PERRLA, EOMI, Normocephalic Neck: Supple, No JVD, Negative Carotid Bruits Lungs: Clear to auscultation, Normal air movement Cardiovascular: Regular rate, No murmurs Abdomen: Bowel Sounds Present, Soft, Non Tender Extremities: No edema, Capillary Refill Less than 3 Seconds Skin: No rashes, No breakdown Musculoskeletal: No Tenderness to Palpation of Joints or Extremities Neurological: Cranial nerves II-XII grossly intact Psych/Mental Status: Normal Affect, Appropriate Vital Signs Temp Pulse Resp BP Pulse Ox 97.8 F 97 17 89/62 L 97 11/09/17 11:13 11/09/17 11:13 11/09/17 11:13 11/09/17 11:13 11/09/17 11:13 Oxygen Flow Rate 2 Oxygen Delivery Method Nasal Cannula Weight: 50.1 kg Body Mass Index (BMI) 23.8 Intake and Output for Last 24 Hours 11/07/17 11/08/17 11/09/17 23:59 23:59 23:59 Intake Total 3586 / 3586 866 / 866 Balance 3586 / 3586 866 / 866 Microbiology Past 72 Hours 11/08/17 01:26 Respiratory Panel (PCR) - Final Interface Orders Laboratory Tests Past 24 Hrs 11/08/17 11/09/17 11/09/17 06:05 05:10 05:10 WBC 3.3 L RBC 3.11 L Hgb 10.6 L Hct 31.9 L MCV 102.6 H MCH 34.1 H MCHC 33.2 RDW 14.2 RDW Differential 52.2 H Plt Count 48 L* MPV 11.4 Differential Comment SCAN Diff Path Review May foll Sodium 129 L Potassium 3.6 Chloride 85 L Carbon Dioxide 39.0 H Anion Gap 5 BUN 19 H Creatinine 0.61 Estim Creat Clear Calc 97.93 Est GFR (MDRD) Af Amer 140 Est GFR (MDRD) Non-Af 116 BUN/Creatinine Ratio 31.1 H Glucose 105 Calcium 8.7 Total Bilirubin 1.30 H Direct Bilirubin 0.67 H AST 212 H ALT 52 Alkaline Phosphatase 91 Total Protein 6.3 L Albumin 2.8 L Globulin 3.5 Lipase 888 H Vitamin B12 1165 H Assessment/Plan Active and Suspected Problems Hypokalemia (Acute) URI (upper respiratory infection) (Acute) Hyponatremia (Acute) Hyponatremia. severe. Likely hypovolemic related to poor oral intake. Sodium levels last month were normal. History of ETOH abuse as per friends at bedside. There could be a component of beer potomania also. Sodium at 129 today. DC iv fluids Hypokalemia. Likely related to GI losses. repleted
[2017-11-09 12:38] LABS: Pathologist Review Reviewed
--- NOTE | 2017-11-09 14:04 | DCINST_ITS ---
- Discharge Diagnoses Current Active Problems: Current Active and Chronic Problems Hypokalemia (Acute) URI (upper respiratory infection) (Acute) Hyponatremia (Acute) You will use the following diet at home:: No restrictions Discharge Activity: Return to Normal Activity Call your doctor if you observe: Shortness of breath, Dizziness, Fainting spells , Chest pain, Increased palpitations (irregular heartbeat) Additional Instructions: Strongly encourage you to attend an inpatient treatment program for alcohol abuse. Allergies/Adverse Reactions: Allergies No Known Allergies Allergy (Verified 11/07/17 18:44) Medications to take at Discharge Lisinopril 20 mg PO DAILY 09/28/17 Chlordiazepoxide [Librium] 25 mg PO TID PRN PRN #30 capsule 10/02/17 Metoprolol Tartrate [Lopressor (beta avelino)] 25 mg PO BID 11/07/17 Nicotine [Nicoderm Cq] 21 mg TRANSDERM. DAILY 11/07/17 Sertraline HCl [Zoloft] 50 mg PO DAILY 11/07/17 Folic Acid 1 mg PO DAILY@0800 #30 tab 11/09/17 Multivitamins,Ther W-Minerals [Multivitamin With Minerals] 1 tab PO DAILYCM #30 tab 11/09/17 Thiamine Hydrochloride [Vitamin B1] 100 mg PO DAILYCM #30 tab 11/09/17 lipase/pancrease/amylase [Pancrelipase (5000-17,000-27,000)] 1 cap PO TIDCM #90 cap 11/09/17 The following prescriptions were given: Folic Acid 1 mg PO DAILY@0800 #30 tab Multivitamins,Ther W-Minerals [Multivitamin With Minerals] 1 tab PO DAILYCM #30 tab Thiamine Hydrochloride [Vitamin B1] 100 mg PO DAILYCM #30 tab lipase/pancrease/amylase [Pancrelipase (5000-17,000-27,000)] 1 cap PO TIDCM #90 cap Primary Care Physician: Care Physician,No Primary [Primary Care Provider] - Please follow up with your Primary Care Physician in: 1 Week Proposed Discharge Date: 11/09/17
--- NOTE | 2017-11-09 14:04 | PCM.DC.SUM ---
Discharge Date and Diagnosis Date of Admission: 11/07/17 Date of Discharge: 11/09/17 - Primary Discharge Diagnosis Active and Suspected Problems 1. Electrolyte imbalance secondary to hypovolemia secondary to nausea, vomiting, diarrhea and alcohol use-severe hyponatremia, hypokalemia, hypochloremia 2. Chronic alcohol use, recent relapse 3. Acute on chronic alcoholic hepatitis with acute on chronic recurrent alcoholic pancreatitis 4. Acute hypoxia- Suspected secondary to drug regimen and hypoventilation 5. Acute kidney injury secondary to dehydration/hypovolemia - Secondary Discharge Diagnosis Chronic Problems Thrombocytopenia (Chronic) Essential hypertension (Chronic) Pancreatitis, alcoholic, acute (Chronic) Chronic alcohol abuse Tobacco dependence Hospital Course and Treatment Imaging Results: Diagnostic Data Chest X-Ray 11/09/17 09:35 IMPRESSION: No acute abnormality is seen. Electronically Signed: Killian Hamm MD at 10:54 EST Tel [phone], Service support , Dr. Gonsales- Nephrology Operations: None Procedures: None Summary of Care Provided: Patient is a 37-year-old female admitted 11/07/17 due to abdominal pain, nausea, vomiting, diarrhea since being discharged from hospital 10/04/17 where she was treated for acute alcoholic pancreatitis and acute alcohol withdrawal. 1. Electrolyte imbalance secondary to hypovolemia secondary to nausea, vomiting, diarrhea and alcohol use-severe hyponatremia, hypokalemia, hypochloremia on admission. Nephrology consulted. Sodium greatly improved. Hypokalemia resolved. 2. Chronic alcohol use, recent relapse- Follows with [facility] program as outpatient. Continue folic acid, thiamine, multivitamin supplementation. Alcohol level 275 on admission. Tox screen positive for benzos. Strongly encouraged patient to attend inpatient treatment for recurrent alcohol abuse relapse. 3. Acute on chronic alcoholic hepatitis with acute on chronic recurrent alcoholic pancreatitis-CT of abdomen and pelvis 09/28/2017 showed hepatosplenomegaly with diffuse fatty infiltration of the liver, prior cholecystectomy. 4. Acute hypoxia-chest x-ray unremarkable. Respiratory panel negative. Patient is afebrile with no leukocytosis. Suspect underlying COPD given extensive smoking history. Recommend outpatient PFTs and follow-up with pulmonary medicine. Walking pulse ox completed prior to discharge and patient did not require home oxygen. 5. Acute kidney injury secondary to dehydration/hypovolemia-improved with IV fluids. 6. Chronic thrombocytopenia secondary to chronic alcohol abuse-stable. 7. Depression-continue home sertraline regimen. 8. Hypertension-stable. 9. Tobacco abuse-Encourage smoking cessation. General: Alert, Oriented x3, Cooperative HEENT: Atraumatic, PERRLA, EOMI, Normocephalic Oral: Dry Mucosa Neck: Supple, No JVD, Negative Carotid Bruits Lungs: Diminished, Wheezes Cardiovascular: Regular rate, Regular Rhythm, Normal S1, Normal S2, No murmurs Abdomen: Bowel Sounds Present, Soft, Non-Distended, nontender Extremities: No clubbing, No cyanosis, No edema, Capillary Refill Less than 3 Seconds Skin: No rashes, No breakdown Musculoskeletal: No Tenderness to Palpation of Joints or Extremities Neurological: Cranial nerves II-XII grossly intact, Neuro grossly intact Psych/Mental Status: Normal Affect, Appropriate Patient seen and examined prior to discharge. Physical assessment as noted above. Patient stable for discharge home. This patient was seen by MAXIMO Holman under the supervision of Dr. Song. Discharge Diet: Low fat/ Low Cholesterol Discharge Activity: Return to Normal Activity Call your doctor if you observe: Shortness of breath, Dizziness, Fainting spells, Chest pain, Increased palpitations (irregular heartbeat) Home Medications: Medications to take at Discharge Lisinopril 20 mg PO DAILY 09/28/17 Chlordiazepoxide [Librium] 25 mg PO TID PRN PRN #30 capsule 10/02/17 Metoprolol Tartrate [Lopressor (beta avelino)] 25 mg PO BID 11/07/17 Nicotine [Nicoderm Cq] 21 mg TRANSDERM. DAILY 11/07/17 Sertraline HCl [Zoloft] 50 mg PO DAILY 11/07/17 Folic Acid 1 mg PO DAILY@0800 #30 tab 11/09/17 Multivitamins,Ther W-Minerals [Multivitamin With Minerals] 1 tab PO DAILYCM #30 tab 11/09/17 Thiamine Hydrochloride [Vitamin B1] 100 mg PO DAILYCM #30 tab 11/09/17 lipase/pancrease/amylase [Pancrelipase (5000-17,000-27,000)] 1 cap PO TIDCM #90 cap 11/09/17 Following Prescrptions Were Given to Patient: Folic Acid 1 mg PO DAILY@0800 #30 tab Multivitamins,Ther W-Minerals [Multivitamin With Minerals] 1 tab PO DAILYCM #30 tab Thiamine Hydrochloride [Vitamin B1] 100 mg PO DAILYCM #30 tab lipase/pancrease/amylase [Pancrelipase (5000-17,000-27,000)] 1 cap PO TIDCM #90 cap Primary Care Physician: Care Physician,No Primary [Primary Care Provider] - Please follow up with your Primary Care Physician in: 1 Week Disposition: Home Minutes spent on discharge:: 35 Patient Condition:: Stable Meaningful Use Info Meaningful Use Diagnoses (Choose all that apply): None applicable
--- NOTE | 2017-11-09 14:12 | DS.PCM_ITS ---
Addendum entered and electronically signed by MAXIMO Holman 11/12/17 11:06: Code Visit Patient was kept over the weekend due to verbalized wishes to attend inpatient treatment facility. This morning she states she wants to go home and refuses inpatient treatment for chronic alcohol abuse. Strongly encouraged patient to attend inpatient treatment. CT of abdomen was repeated over the weekend due to lipase levels which remained elevated. Pancreas was noted to be unremarkable. Patient denies nausea, vomiting, abdominal pain. She states she feels well and wishes to go home. She was seen and examined prior to discharge. Heart rate regular rate and rhythm. Abdomen soft, nontender. Lungs clear. Neuro grossly intact. Patient was discharged 11/12/2017 and stable condition. This patient was seen by MAXIMO Holman under the supervision of Dr. Torres. Addendum entered and electronically signed by MAXIMO Holman 11/10/17 15:05: Code Visit Patient agreed to inpatient treatment for substance abuse and therefor was not discharged. Original Note: Discharge Date and Diagnosis Date of Admission: 11/07/17 Date of Discharge: 11/09/17 - Primary Discharge Diagnosis Active and Suspected Problems 1. Electrolyte imbalance secondary to hypovolemia secondary to nausea, vomiting , diarrhea and alcohol use-severe hyponatremia, hypokalemia, hypochloremia 2. Chronic alcohol use, recent relapse 3. Acute on chronic alcoholic hepatitis with acute on chronic recurrent alcoholic pancreatitis 4. Acute hypoxia- Suspected secondary to drug regimen and hypoventilation 5. Acute kidney injury secondary to dehydration/hypovolemia - Secondary Discharge Diagnosis Chronic Problems Thrombocytopenia (Chronic) Essential hypertension (Chronic) Pancreatitis, alcoholic, acute (Chronic) Chronic alcohol abuse Tobacco dependence Hospital Course and Treatment Imaging Results: Diagnostic Data Chest X-Ray 11/09/17 09:35 IMPRESSION: No acute abnormality is seen. Electronically Signed: Killian Hamm MD at 10:54 EST Tel [phone], Service support , Dr. Gonsales- Nephrology Operations: None Procedures: None Summary of Care Provided: Patient is a 37-year-old female admitted 11/07/17 due to abdominal pain, nausea, vomiting, diarrhea since being discharged from hospital 1/25/18 where she was treated for acute alcoholic pancreatitis and acute alcohol withdrawal. 1. Electrolyte imbalance secondary to hypovolemia secondary to nausea, vomiting , diarrhea and alcohol use-severe hyponatremia, hypokalemia, hypochloremia on admission. Nephrology consulted. Sodium greatly improved. Hypokalemia resolved. 2. Chronic alcohol use, recent relapse- Follows with [facility] as outpatient. Continue folic acid, thiamine, multivitamin supplementation. Alcohol level 275 on admission. Tox screen positive for benzos. Strongly encouraged patient to attend inpatient treatment for recurrent alcohol abuse relapse. 3. Acute on chronic alcoholic hepatitis with acute on chronic recurrent alcoholic pancreatitis-CT of abdomen and pelvis 09/28/2017 showed hepatosplenomegaly with diffuse fatty infiltration of the liver, prior cholecystectomy. 4. Acute hypoxia-chest x-ray unremarkable. Respiratory panel negative. Patient is afebrile with no leukocytosis. Suspect underlying COPD given extensive smoking history. Recommend outpatient PFTs and follow-up with pulmonary medicine. Walking pulse ox completed prior to discharge and patient did not require home oxygen. 5. Acute kidney injury secondary to dehydration/hypovolemia-improved with IV fluids. 6. Chronic thrombocytopenia secondary to chronic alcohol abuse-stable. 7. Depression-continue home sertraline regimen. 8. Hypertension-stable. 9. Tobacco abuse-Encourage smoking cessation. General: Alert, Oriented x3, Cooperative HEENT: Atraumatic, PERRLA, EOMI, Normocephalic Oral: Dry Mucosa Neck: Supple, No JVD, Negative Carotid Bruits Lungs: Diminished, Wheezes Cardiovascular: Regular rate, Regular Rhythm, Normal S1, Normal S2, No murmurs Abdomen: Bowel Sounds Present, Soft, Non-Distended, nontender Extremities: No clubbing, No cyanosis, No edema, Capillary Refill Less than 3 Seconds Skin: No rashes, No breakdown Musculoskeletal: No Tenderness to Palpation of Joints or Extremities Neurological: Cranial nerves II-XII grossly intact, Neuro grossly intact Psych/Mental Status: Normal Affect, Appropriate Patient seen and examined prior to discharge. Physical assessment as noted above. Patient stable for discharge home. This patient was seen by MAXIMO Holman under the supervision of Dr. Song. Discharge Diet: Low fat/ Low Cholesterol Discharge Activity: Return to Normal Activity Call your doctor if you observe: Shortness of breath, Dizziness, Fainting spells , Chest pain, Increased palpitations (irregular heartbeat) Home Medications: Medications to take at Discharge Lisinopril 20 mg PO DAILY 09/28/17 Chlordiazepoxide [Librium] 25 mg PO TID PRN PRN #30 capsule 10/02/17 Metoprolol Tartrate [Lopressor (beta avelino)] 25 mg PO BID 11/07/17 Nicotine [Nicoderm Cq] 21 mg TRANSDERM. DAILY 11/07/17 Sertraline HCl [Zoloft] 50 mg PO DAILY 11/07/17 Folic Acid 1 mg PO DAILY@0800 #30 tab 11/09/17 Multivitamins,Ther W-Minerals [Multivitamin With Minerals] 1 tab PO DAILYCM #30 tab 11/09/17 Thiamine Hydrochloride [Vitamin B1] 100 mg PO DAILYCM #30 tab 11/09/17 lipase/pancrease/amylase [Pancrelipase (5000-17,000-27,000)] 1 cap PO TIDCM #90 cap 11/09/17 Following Prescrptions Were Given to Patient: Folic Acid 1 mg PO DAILY@0800 #30 tab Multivitamins,Ther W-Minerals [Multivitamin With Minerals] 1 tab PO DAILYCM #30 tab Thiamine Hydrochloride [Vitamin B1] 100 mg PO DAILYCM #30 tab lipase/pancrease/amylase [Pancrelipase (5000-17,000-27,000)] 1 cap PO TIDCM #90 cap Primary Care Physician: Care Physician,No Primary [Primary Care Provider] - Please follow up with your Primary Care Physician in: 1 Week Disposition: Home Minutes spent on discharge:: 35 Patient Condition:: Stable Meaningful Use Info Meaningful Use Diagnoses (Choose all that apply): None applicable
--- NOTE | 2017-11-09 14:58 | CASEMGMT ---
Per Meghna JORDAN, pt needs PCP appointment set up and states no preference at this time. This RN CM to bedside and pt is sleeping without distress and does not awaken to verbal stimuli or knock on the door. List of local PCP's left at bedside. Appointment made with Dr. Mccain for 11/21/17 at 1400. Appointment placed in chart and printed up to go with discharge and this RN CM also left a card with Dr. Mccain's information and appointment information on pt's tray attached to local PCP list in case she changes her mind. Pt is still sleeping without distress and does not awaken to verbal stimuli or knock on the door. [place] RN CM
--- NOTE | 2017-11-09 19:06 | NURSING ---
sister called this nurse yelling at her that she felt patient was not ready for discharge and that she will if she goes home because she will start drinking. Informed sister that several employees including offered her inpatient rehab and she wanted to to do outpatient and not inpatient. Sister states she will not follow up. Sister did talk to md to verify that the hospital cannot hold her here she was medically stable for discharge. About 30 min later patient called nurse back to room stating that she will do inpatient rehab and does not want to do outpatient after she talked to her sister and her mother. Notified
[2017-11-09] MEDS: chlordiazePOXIDE 25 MG Capsule PO (20:15)
[2017-11-10] VITALS (16 sets, daily range): BP systolic 120–155; BP diastolic 90–108; PULSE 92–119; RESP 16–39; TEMP 36.6–37.6; O2SAT 94–97
[2017-11-10] MEDS: chlordiazePOXIDE 25 MG Capsule PO ×2 (03:06→16:58)
[2017-11-10] MEDS: Metoprolol Tartrate 25 MG Tablet PO ×2 (07:00→21:26)
[2017-11-10 07:50] LABS: AST(SGOT) 311 U/L (15-37); Alanine Aminotransfer ALT/SGPT 108 U/L (13-56); Alkaline Phosphatase 106 U/L (45-117); Bilirubin, Direct 0.32 mg/dL (0.00-0.30); Globulin 4.3 g/dL (2.2-4.2); Protein, Total 7.3 g/dL (6.4-8.2)
[2017-11-10] MEDS: Multivitamins,Ther W-Minerals Tablet 1 TABLET PO (08:48)
[2017-11-10] MEDS: Folic Acid 1 MG Tablet PO (08:48)
[2017-11-10] MEDS: guaiFENesin 1,200 MG Tablet 1200 MG PO ×2 (10:52→21:27)
[2017-11-10] MEDS: Famotidine 20 MG Tablet PO ×2 (10:52→21:27)
[2017-11-10] MEDS: Thiamine Hydrochloride 100 MG Tablet PO (10:52)
[2017-11-10 11:37] LABS: International Normalized Ratio 0.9; Prothrombin Time (Protime)PT. 12.1 SECONDS (11.7-14.9)
[2017-11-10 11:47] LABS: Anion Gap 8 (5-15); BUN 11 mg/dL (7-18); BUN/Creat Ratio 16.1 RATIO (10-20); Calcium,Total 9.1 mg/dL (8.5-10.1); Chloride 97 mmol/L (98-107); Creatinine, Serum 0.68 mg/dL (0.55-1.02); EST Glomerular Filtration Rate 102 mL/min (>60); Est Glom Filt Rate - Afr Amer 123 mL/min (>60); Estimated Creatinine Clearance 87.85 ml/min; Glucose 99 mg/dL (74-106); Lipase 1716 U/L (73-393); Potassium 5.5 mmol/L (3.5-5.1); Sodium Level 132 mmol/L (136-145)
--- NOTE | 2017-11-10 15:01 | CT_ITS ---
STUDY: CT ABDOMEN AND PELVIS WITH CONTRAST REASON FOR EXAM: Female, 37 years old. Elevated lipase. RADIATION DOSAGE (If Supplied By Facility): CTDIvol = ( 9.48 ) mGy, DLP = ( 414.86 ) mGycm TECHNIQUE: Transaxial images were obtained from the dome of the diaphragm to the symphysis pubis without oral contrast. 75 ml of Isovue 370 contrast was administered. Sagittal and coronal images were reconstructed. Individualized dose optimization techniques were used for this CT. COMPARISON: September 28, 2017. FINDINGS: The visualized lung bases are unremarkable. The visualized portions of the heart are within normal limits. There is hepatomegaly with diffuse hepatic enlargement. There is stable pneumobilia. There is non-visualization of the gallbladder, which may be secondary to either contraction or a prior cholecystectomy. There is mild splenomegaly. Normal pancreas. Normal bilateral adrenal glands. Normal right kidney. Normal left kidney. Normal visualized stomach. Normal small intestine. Normal colon. The appendix is visualized and appears normal. Normal abdominal aorta. Normal inferior vena cava. Normal retroperitoneum. Normal urinary bladder. Normal visualized uterus. Tubal ligation clips. There is no free fluid in the abdomen or pelvis. Normal abdominal wall. Normal osseous structures. CT/Abdomen/Pelvis WITH Contrast IMPRESSION: Hepatosplenomegaly. Stable pneumobilia consistent with prior intervention. Pancreas is unremarkable. No dilated loops of bowel. Electronically Signed: El Dowling MD at 16:15 EST , Service support ,
--- NOTE | 2017-11-10 15:03 | PN_ITS ---
Subjective: Patient seen and examined. Much more alert today. Sister at bedside. Patient continues to be agreeable to inpatient treatment for chronic alcohol abuse. She states she feels well today. Denies nausea, vomiting. Tolerating diet without difficulty. Continues to have intermittent diarrhea. Denies other complaints. - Physical Exam General: Alert, Oriented x3, Cooperative, No apparent distress HEENT: Atraumatic, PERRLA, EOMI, Normocephalic Neck: Supple, No JVD, Negative Carotid Bruits Lungs: Clear to auscultation, Diminished Cardiovascular: Regular rate, Regular Rhythm, Normal S1, Normal S2, No murmurs Abdomen: Bowel Sounds Present, Soft, Non Tender, Non-Distended Extremities: No clubbing, No cyanosis, No edema, Capillary Refill Less than 3 Seconds Skin: No rashes, No breakdown Musculoskeletal: No Tenderness to Palpation of Joints or Extremities Neurological: Cranial nerves II-XII grossly intact, Neuro grossly intact Psych/Mental Status: Normal Affect, Appropriate Vital Signs Temp Pulse Resp BP Pulse Ox 98.7 F 100 16 132/90 H 96 11/10/17 10:50 11/10/17 11:11 11/10/17 10:50 11/10/17 10:50 11/10/17 10:50 Oxygen Flow Rate 2 Oxygen Delivery Method Room Air Weight: 50.1 kg Body Mass Index (BMI) 23.8 Intake and Output for Last 24 Hours 11/08/17 11/09/17 11/10/17 23:59 23:59 23:59 Intake Total 3586 / 3586 2216 / 2216 360 / 360 Balance 3586 / 3586 2216 / 2216 360 / 360 Microbiology Past 72 Hours 11/08/17 01:26 Respiratory Panel (PCR) - Final Interface Orders Laboratory Tests Past 24 Hrs 11/10/17 11/10/17 11/10/17 06:40 11:05 11:05 PT 12.1 INR 0.9 Sodium 132 L Potassium 5.5 H Chloride 97 L Carbon Dioxide 27.0 Anion Gap 8 BUN 11 Creatinine 0.68 Estim Creat Clear Calc 87.85 Est GFR (MDRD) Af Amer 123 Est GFR (MDRD) Non-Af 102 BUN/Creatinine Ratio 16.1 Glucose 99 Calcium 9.1 Total Bilirubin 0.90 Direct Bilirubin 0.32 H AST 311 H ALT 108 H Alkaline Phosphatase 106 Total Protein 7.3 Albumin 3.0 L Globulin 4.3 H Lipase 1716 H Assessment/Plan Patient is a 37-year-old female admitted 11/07/17 due to abdominal pain, nausea, vomiting, diarrhea since being discharged from hospital 10/04/17 where she was treated for acute alcoholic pancreatitis and acute alcohol withdrawal. 1. Electrolyte imbalance secondary to hypovolemia secondary to nausea, vomiting , diarrhea and alcohol use-severe hyponatremia, hypokalemia, hypochloremia on admission. Nephrology consulted. Sodium greatly improved. Hypokalemia resolved. Potassium increased today to 5.5. The potassium replacement discontinued. 2. Chronic alcohol use, recent relapse- Follows with [facility] as outpatient. Continue folic acid, thiamine, multivitamin supplementation. Alcohol level 275 on admission. Tox screen positive for benzos. Patient agreeable to inpatient treatment for alcohol abuse. 3. Acute on chronic alcoholic hepatitis with acute on chronic recurrent alcoholic pancreatitis-CT of abdomen and pelvis 09/28/2017 showed hepatosplenomegaly with diffuse fatty infiltration of the liver, prior cholecystectomy. Lipase increased to 1716 today. AST/ALT increased. Obtain abdominal CT. NPO. 4. Acute hypoxia-chest x-ray unremarkable. Respiratory panel negative. Patient is afebrile with no leukocytosis. Suspect underlying COPD given extensive smoking history. Recommend outpatient PFTs and follow-up with pulmonary medicine. Walking pulse ox completed and patient did not require home oxygen. 5. Acute kidney injury secondary to dehydration/hypovolemia-resolved with IV fluids. 6. Chronic thrombocytopenia secondary to chronic alcohol abuse-stable. 7. Depression-continue home sertraline regimen. 8. Hypertension-stable, resume lisinopril. 9. Tobacco abuse-Encourage smoking cessation. Discharge planning: Inpatient substance abuse treatment facility pending bed availability. Case management involved. DVT prophylaxis-SCDs. This patient was seen by MAXIMO Holman under the supervision of Dr. Song.
[2017-11-10 17:24] LABS: Alcohol, Blood (Medical)-Serum < 3.0 mg/dL
[2017-11-11] VITALS (14 sets, daily range): BP systolic 102–146; BP diastolic 70–102; PULSE 84–111; RESP 16–28; TEMP 36.8–37.3; O2SAT 94–97
[2017-11-11] MEDS: Ondansetron ODT 4 MG Tablet PO (06:42)
[2017-11-11 07:03] LABS: Hematocrit 39.3 % (37-47); Hemoglobin 12.7 g/dl (12.0-15.0); Mean Corp Hgb Conc 32.3 g/gl (32-36); Mean Corpuscular Hgb 33.5 pg (27.0-32.0); Mean Corpuscular Volume 103.7 fL (81-99); Mean Platelet Vol. 12.4 fl (6.2-12.0); Platelet Count 103 K/mm3 (150-450); RBC Distribution Width CV 15.2 % (11.6-14.6); RBC Distribution Width SD 57.6 fl (35.1-43.9); Red Blood Count 3.79 M/mm3 (4.2-5.4); White Blood Count 6.3 K/mm3 (4.4-11.0)
[2017-11-11 07:26] LABS: Scan Indicated on CBC? Y/N NO
[2017-11-11 08:29] LABS: AST(SGOT) 361 U/L (15-37); Alanine Aminotransfer ALT/SGPT 169 U/L (13-56); Albumin, Serum 3.1 g/dL (3.2-5.0); Alkaline Phosphatase 121 U/L (45-117); Anion Gap 9 (5-15); BUN 10 mg/dL (7-18); BUN/Creat Ratio 20.6 RATIO (10-20); Bilirubin, Direct 0.39 mg/dL (0.00-0.30); Calcium,Total 8.6 mg/dL (8.5-10.1); Chloride 102 mmol/L (98-107); Creatinine, Serum 0.49 mg/dL (0.55-1.02); EST Glomerular Filtration Rate 150 mL/min (>60); Est Glom Filt Rate - Afr Amer 182 mL/min (>60); Estimated Creatinine Clearance 121.91 ml/min; Globulin 4.4 g/dL (2.2-4.2); Glucose 81 mg/dL (74-106); Lipase 1133 U/L (73-393); Protein, Total 7.5 g/dL (6.4-8.2); Sodium Level 132 mmol/L (136-145)
--- NOTE | 2017-11-11 10:06 | PCM.PN.REN ---
Subjective: Na 132 , MS better - Physical Exam HEENT: Atraumatic, PERRLA, EOMI, Normocephalic Neck: Supple Lungs: Clear to auscultation, Normal air movement Cardiovascular: Regular rate, No murmurs Abdomen: Bowel Sounds Present, Soft, Non Tender Extremities: No edema, Capillary Refill Less than 3 Seconds Vital Signs Temp Pulse Resp BP Pulse Ox 99.1 F 110 H 21 H 146/102 H 95 11/11/17 05:50 11/11/17 06:55 11/11/17 05:50 11/11/17 05:50 11/11/17 07:36 Oxygen Flow Rate 2 Oxygen Delivery Method Room Air Weight: 50.1 kg Body Mass Index (BMI) 23.8 Intake and Output for Last 24 Hours 11/09/17 11/10/17 11/11/17 23:59 23:59 23:59 Intake Total 2216 / 2216 1070 / 1070 0 / 0 Balance 2216 / 2216 1070 / 1070 0 / 0 Microbiology Past 72 Hours 11/08/17 01:26 Respiratory Panel (PCR) - Final Interface Orders Laboratory Tests Past 24 Hrs 11/10/17 11/10/17 11/10/17 11:05 11:05 16:45 WBC RBC Hgb Hct MCV MCH MCHC RDW RDW Differential Plt Count MPV PT 12.1 INR 0.9 Sodium 132 L Potassium 5.5 H Chloride 97 L Carbon Dioxide 27.0 Anion Gap 8 BUN 11 Creatinine 0.68 Estim Creat Clear Calc 87.85 Est GFR (MDRD) Af Amer 123 Est GFR (MDRD) Non-Af 102 BUN/Creatinine Ratio 16.1 Glucose 99 Calcium 9.1 Total Bilirubin Direct Bilirubin AST ALT Alkaline Phosphatase Total Protein Albumin Globulin Lipase 1716 H Ethyl Alcohol < 3.0 11/11/17 11/11/17 05:40 05:40 WBC 6.3 RBC 3.79 L Hgb 12.7 Hct 39.3 MCV 103.7 H MCH 33.5 H MCHC 32.3 RDW 15.2 H RDW Differential 57.6 H Plt Count 103 L MPV 12.4 H PT INR Sodium 132 L Potassium 5.0 Chloride 102 Carbon Dioxide 21.0 Anion Gap 9 BUN 10 Creatinine 0.49 L Estim Creat Clear Calc 121.91 Est GFR (MDRD) Af Amer 182 Est GFR (MDRD) Non-Af 150 BUN/Creatinine Ratio 20.6 H Glucose 81 Calcium 8.6 Total Bilirubin 1.00 Direct Bilirubin 0.39 H AST 361 H ALT 169 H Alkaline Phosphatase 121 H Total Protein 7.5 Albumin 3.1 L Globulin 4.4 H Lipase 1133 H Ethyl Alcohol Assessment/Plan Hyponatremia. severe. Likely hypovolemic related to poor oral intake. Sodium levels last month were normal. History of ETOH abuse as per friends at bedside. There could be a component of beer potomania also. Sodium at 132 today. DC iv fluids Hypokalemia. Likely related to GI losses. repleted
[2017-11-11] MEDS: Folic Acid 1 MG Tablet PO (10:23)
[2017-11-11] MEDS: Metoprolol Tartrate 25 MG Tablet PO (10:23)
[2017-11-11] MEDS: Multivitamins,Ther W-Minerals Tablet 1 TABLET PO (10:23)
[2017-11-11] MEDS: Thiamine Hydrochloride 100 MG Tablet PO (10:23)
[2017-11-11] MEDS: guaiFENesin 1,200 MG Tablet 1200 MG PO ×2 (10:24→22:51)
[2017-11-11] MEDS: Famotidine 20 MG Tablet PO ×2 (10:24→22:52)
[2017-11-11] MEDS: Lisinopril 20 MG Tablet PO (10:24)
--- NOTE | 2017-11-11 10:37 | PN_ITS ---
Subjective: Patient seen and examined. Resting in bed in no acute distress. Complains of one episode of mild nausea, no emesis. Denies abdominal pain. Continued intermittent diarrhea which is chronic for patient. She denies other complaints. Has questions regarding inpatient treatment facility. Will attempt to contact facility. - Physical Exam General: Alert, Oriented x3, Cooperative, No apparent distress HEENT: Atraumatic, PERRLA, EOMI, Normocephalic Oral: Dry Mucosa Neck: Supple, No JVD, Negative Carotid Bruits Lungs: Clear to auscultation, Diminished Cardiovascular: Normal S1, Normal S2, No murmurs, Tachycardic Abdomen: Bowel Sounds Present, Soft, Non Tender, Non-Distended Extremities: No clubbing, No cyanosis, No edema, Capillary Refill Less than 3 Seconds Skin: No rashes, No breakdown Musculoskeletal: No Tenderness to Palpation of Joints or Extremities Neurological: Cranial nerves II-XII grossly intact, Neuro grossly intact Psych/Mental Status: Normal Affect, Appropriate Vital Signs Temp Pulse Resp BP Pulse Ox 99 F 111 H 16 112/80 96 11/11/17 10:15 11/11/17 10:23 11/11/17 10:15 11/11/17 10:23 11/11/17 10:15 Oxygen Flow Rate 2 Oxygen Delivery Method Room Air Weight: 50.1 kg Body Mass Index (BMI) 23.8 Intake and Output for Last 24 Hours 11/09/17 11/10/17 11/11/17 23:59 23:59 23:59 Intake Total 2216 / 2216 1070 / 1070 0 / 0 Balance 2216 / 2216 1070 / 1070 0 / 0 Microbiology Past 72 Hours 11/08/17 01:26 Respiratory Panel (PCR) - Final Interface Orders Laboratory Tests Past 24 Hrs 11/10/17 11/10/17 11/10/17 11:05 11:05 16:45 WBC RBC Hgb Hct MCV MCH MCHC RDW RDW Differential Plt Count MPV PT 12.1 INR 0.9 Sodium 132 L Potassium 5.5 H Chloride 97 L Carbon Dioxide 27.0 Anion Gap 8 BUN 11 Creatinine 0.68 Estim Creat Clear Calc 87.85 Est GFR (MDRD) Af Amer 123 Est GFR (MDRD) Non-Af 102 BUN/Creatinine Ratio 16.1 Glucose 99 Calcium 9.1 Total Bilirubin Direct Bilirubin AST ALT Alkaline Phosphatase Total Protein Albumin Globulin Lipase 1716 H Ethyl Alcohol < 3.0 11/11/17 11/11/17 05:40 05:40 WBC 6.3 RBC 3.79 L Hgb 12.7 Hct 39.3 MCV 103.7 H MCH 33.5 H MCHC 32.3 RDW 15.2 H RDW Differential 57.6 H Plt Count 103 L MPV 12.4 H PT INR Sodium 132 L Potassium 5.0 Chloride 102 Carbon Dioxide 21.0 Anion Gap 9 BUN 10 Creatinine 0.49 L Estim Creat Clear Calc 121.91 Est GFR (MDRD) Af Amer 182 Est GFR (MDRD) Non-Af 150 BUN/Creatinine Ratio 20.6 H Glucose 81 Calcium 8.6 Total Bilirubin 1.00 Direct Bilirubin 0.39 H AST 361 H ALT 169 H Alkaline Phosphatase 121 H Total Protein 7.5 Albumin 3.1 L Globulin 4.4 H Lipase 1133 H Ethyl Alcohol Assessment/Plan Patient is a 37-year-old female admitted 11/07/17 due to abdominal pain, nausea, vomiting, diarrhea since being discharged from hospital 10/04/17 where she was treated for acute alcoholic pancreatitis and acute alcohol withdrawal. 1. Electrolyte imbalance secondary to hypovolemia secondary to nausea, vomiting , diarrhea and alcohol use-severe hyponatremia, hypokalemia, hypochloremia on admission. Nephrology consulted. Sodium greatly improved. Hypokalemia resolved. 2. Chronic alcohol use, recent relapse- Follows with [facility] as outpatient. Continue folic acid, thiamine, multivitamin supplementation. Alcohol level 275 on admission. Tox screen positive for benzos. Patient agreeable to inpatient treatment for alcohol abuse. 3. Acute on chronic alcoholic hepatitis with acute on chronic recurrent alcoholic pancreatitis-CT of abdomen and pelvis 09/28/2017 showed hepatosplenomegaly with diffuse fatty infiltration of the liver, prior cholecystectomy. Lipase increased to 1716 today. AST/ALT mildly decreased from yesterday. Continue clear liquid diet. CT of abdomen 11/10/2017 showed normal pancreas. Hepatosplenomegaly. Zofran as needed for nausea. Trend labs. 4. Acute hypoxia-chest x-ray unremarkable. Respiratory panel negative. Patient is afebrile with no leukocytosis. Suspect underlying COPD given extensive smoking history. Recommend outpatient PFTs and follow-up with pulmonary medicine. Walking pulse ox completed and patient did not require home oxygen. 5. Acute kidney injury secondary to dehydration/hypovolemia-resolved with IV fluids. 6. Chronic thrombocytopenia secondary to chronic alcohol abuse-stable. 7. Depression-continue home sertraline regimen. 8. Hypertension-stable, resume lisinopril. 9. Tobacco abuse-Encourage smoking cessation. Discharge planning: Inpatient substance abuse treatment facility pending bed availability. Case management involved. DVT prophylaxis-SCDs. This patient was seen by MAXIMO Holman under the supervision of Dr. Song.
[2017-11-11 14:36] LABS: Vitamin B1, Thiamine 216.4 nmol/L (66.5-200.0)
[2017-11-12] VITALS (8 sets, daily range): BP systolic 93–124; BP diastolic 60–77; PULSE 89–114; RESP 12–16; TEMP 36.5–36.7; O2SAT 99–100
[2017-11-12 06:33] LABS: Hematocrit 36.4 % (37-47); Hemoglobin 12.1 g/dl (12.0-15.0); Mean Corp Hgb Conc 33.2 g/gl (32-36); Mean Corpuscular Hgb 34.5 pg (27.0-32.0); Mean Corpuscular Volume 103.7 fL (81-99); Mean Platelet Vol. 11.5 fl (6.2-12.0); Platelet Count 128 K/mm3 (150-450); RBC Distribution Width SD 56.1 fl (35.1-43.9); Red Blood Count 3.51 M/mm3 (4.2-5.4); White Blood Count 6.7 K/mm3 (4.4-11.0)
[2017-11-12 06:36] LABS: AST(SGOT) 413 U/L (15-37); Alanine Aminotransfer ALT/SGPT 257 U/L (13-56); Albumin, Serum 3.2 g/dL (3.2-5.0); Alkaline Phosphatase 115 U/L (45-117); Anion Gap 11 (5-15); BUN 14 mg/dL (7-18); BUN/Creat Ratio 24.3 RATIO (10-20); Bilirubin, Direct 0.44 mg/dL (0.00-0.30); Calcium,Total 8.9 mg/dL (8.5-10.1); Chloride 99 mmol/L (98-107); Creatinine, Serum 0.58 mg/dL (0.55-1.02); EST Glomerular Filtration Rate 123 mL/min (>60); Est Glom Filt Rate - Afr Amer 149 mL/min (>60); Globulin 4.3 g/dL (2.2-4.2); Glucose 104 mg/dL (74-106); Lipase 870 U/L (73-393); Potassium 4.8 mmol/L (3.5-5.1); Protein, Total 7.5 g/dL (6.4-8.2); Sodium Level 131 mmol/L (136-145)
[2017-11-12 06:45] LABS: Scan Indicated on CBC? Y/N NO
--- NOTE | 2017-11-12 07:39 | NURSING ---
Pt tearful this AM. States she has made a decision and decided she wants to go home. Mitali RAMIRES notified.
--- NOTE | 2017-11-12 07:49 | NURSING ---
PT STATED TO HS RN THAT PT WANTED TO GO HOME INSTEAD OF GOING TO INPT REHAB. THIS RN SPENT APPROX 30MIN DISCUSSING WITH PT WHY PT SHOULD GO TO THE INPT UNIT INSTEAD OF GOING HOME. PT ADAMANT ABOUT GOING HOME. THIS RN TOLD PT THAT PT NEEDED TO DISCUSS THIS DECISION WITH HER FAMILY BEFORE MOVING FORWARD. PT AGREED TO DOING SO.
[2017-11-12] MEDS: Lisinopril 20 MG Tablet PO (08:51)
[2017-11-12] MEDS: Metoprolol Tartrate 25 MG Tablet PO (08:51)
[2017-11-12] MEDS: Thiamine Hydrochloride 100 MG Tablet PO (08:51)
[2017-11-12] MEDS: Famotidine 20 MG Tablet PO (08:55)
[2017-11-12] MEDS: Folic Acid 1 MG Tablet PO (08:55)
[2017-11-12] MEDS: Multivitamins,Ther W-Minerals Tablet 1 TABLET PO (08:55)
[2017-11-12] MEDS: guaiFENesin 1,200 MG Tablet 1200 MG PO (09:02)
--- NOTE | 2017-11-12 09:58 | PCM.PN.REN ---
Subjective: no new complaints - Physical Exam General: Alert, Oriented x3, Cooperative HEENT: Atraumatic, PERRLA, EOMI, Normocephalic Neck: Supple, No JVD, Negative Carotid Bruits Lungs: Clear to auscultation, Normal air movement Cardiovascular: Regular rate, No murmurs Abdomen: Bowel Sounds Present, Soft, Non Tender Extremities: No edema, Capillary Refill Less than 3 Seconds Skin: No rashes, No breakdown Musculoskeletal: No Tenderness to Palpation of Joints or Extremities Neurological: Cranial nerves II-XII grossly intact Psych/Mental Status: Normal Affect, Appropriate Vital Signs Temp Pulse Resp BP Pulse Ox 97.7 F L 110 H 16 124/72 H 100 11/12/17 08:44 11/12/17 08:51 11/12/17 08:44 11/12/17 08:44 11/12/17 08:44 Oxygen Flow Rate 2 Oxygen Delivery Method Room Air Weight: 50.1 kg Body Mass Index (BMI) 23.8 Intake and Output for Last 24 Hours 11/10/17 11/11/17 11/12/17 23:59 23:59 23:59 Intake Total 1070 / 1070 1170 / 1170 400 / 400 Balance 1070 / 1070 1170 / 1170 400 / 400 Laboratory Tests Past 24 Hrs 11/08/17 11/12/17 11/12/17 06:05 05:45 05:45 WBC 6.7 RBC 3.51 L Hgb 12.1 Hct 36.4 L MCV 103.7 H MCH 34.5 H MCHC 33.2 RDW 15.0 H RDW Differential 56.1 H Plt Count 128 L MPV 11.5 Sodium 131 L Potassium 4.8 Chloride 99 Carbon Dioxide 21.0 Anion Gap 11 BUN 14 Creatinine 0.58 Estim Creat Clear Calc 103.00 Est GFR (MDRD) Af Amer 149 Est GFR (MDRD) Non-Af 123 BUN/Creatinine Ratio 24.3 H Glucose 104 Calcium 8.9 Total Bilirubin 1.00 Direct Bilirubin 0.44 H AST 413 H ALT 257 H Alkaline Phosphatase 115 Total Protein 7.5 Albumin 3.2 Globulin 4.3 H Lipase 870 H Whole Bld Vitamin B1 216.4 H Assessment/Plan Hyponatremia. severe. Likely hypovolemic related to poor oral intake. Sodium levels last month were normal. History of ETOH abuse as per friends at bedside. There could be a component of beer potomania also. Sodium at 131 today. off iv fluids she is still on clear liquids, likely responsible for low sodium numbers. should improve once she tolerates regular diet Hypokalemia. Likely related to GI losses. repleted
[2017-11-13 09:39] LABS: HEPATITIS B SURFACE AG Negative (Negative); Hepatitis A IgM Antibody Negative (Negative); Hepatitis B Core AB IgM Negative (Negative)
[2017-11-13 12:37] LABS: Hep C Antibodies <0.1 s/co ratio (0.0-0.9)
== END 2017-11-12 13:38 | disposition home or self-care (01) | DRG 296 ==
LOC: ED 19:15 → PCU 21:32
PROVIDERS: Internal Medicine; Nurse Practitioner Family; Admitting Provider Internal Medicine; Emergency Provider Emergency Medicine; Visit Provider Internal Medicine
DX: E87.1 Hypo-osmolality and hyponatremia (principal); N17.9 Acute kidney failure, unspecified; K85.20 Alcohol induced acute pancreatitis without necrosis or infection; E87.2 Acidosis; K86.0 Alcohol-induced chronic pancreatitis; D69.59 Other secondary thrombocytopenia; F10.129 Alcohol abuse with intoxication, unspecified; K70.10 Alcoholic hepatitis without ascites; E87.6 Hypokalemia; F17.210 Nicotine dependence, cigarettes, uncomplicated; Y90.8 Blood alcohol level of 240 mg/100 ml or more; I10 Essential (primary) hypertension; E87.8 Other disorders of electrolyte and fluid balance, not elsewhere classified; E86.0 Dehydration; E86.1 Hypovolemia; F32.9 Major depressive disorder, single episode, unspecified; Z90.49 Acquired absence of other specified parts of digestive tract
CPT/HCPCS: 36415; 71046; 74177; 80048; 80074; 80076; 80307; 80320; 82140; 82607; 82746; 82977; 83690; 83735; 84425; 84703; 85025; 85027; 85610; 87633; 93005; 94640; 97802; 99285; 99406; J7030; J7050; Q9967; A4216; G0480; J2405; J3490

== ENCOUNTER 2017-12-17 21:43 | Inpatient (IN) | payer MEDICAID, SELFPAY ==
[2017-12-17 21:44] VITALS: BP 95/68; PULSE 127; RESP 18; TEMP 36.9; O2SAT 94; BMI 24.9
[2017-12-17 21:56] LABS: Bedside Glucose 127 mg/dL (70-110)
--- NOTE | 2017-12-17 22:24 | CT_ITS ---
STUDY: CT BRAIN WITHOUT CONTRAST REASON FOR EXAM: Female, 37 years old. Seizure. RADIATION DOSAGE (If Supplied By Facility): CTDIvol = ( 44.99 ) mGy, DLP = ( 745.49 ) mGycm TECHNIQUE: Transaxial CT imaging of the brain was performed without administration of intravenous contrast material. Individualized dose optimization techniques were used for this CT. COMPARISON: None. FINDINGS: Normal soft tissue structures. Normal calvarium. Normal size ventricles and extra-axial spaces for the patient's age. Normal white matter tracts of the cerebral hemispheres. Normal basal ganglia and thalami. Normal brainstem. Normal cerebellum. There is no intracranial hemorrhage. There are no findings of an acute ischemic infarction. Normal visualized paranasal sinuses. CT/Brain/Head without Contrast IMPRESSION: Normal unenhanced CT scan of the brain. Electronically Signed: Dieudonne Gonzalez MD at 23:11 EDT , Service support ,
--- NOTE | 2017-12-17 22:25 | EKG12_ITS ---
Test Reason : SEIZURE Blood Pressure : / mmHG Vent. Rate : 111 BPM Atrial Rate : 111 BPM P-R Int : 134 ms QRS Dur : 086 ms QT Int : 328 ms P-R-T Axes : 019 045 058 degrees QTc Int : 446 ms Sinus tachycardia Otherwise normal ECG Confirmed by LAKE MARTINEZ, MANOHAR ([id number]), greeting card editor ESME CORREA ([id number]) on 12/20/2017 1:53:43 PM Referred By: REBECCA Confirmed By:MANOHAR BETHEA MD
[2017-12-17] MEDS: 0.9% Normal Saline 1,000 ML 999 ML IV (22:30)
--- NOTE | 2017-12-17 22:30 | RAD_ITS ---
STUDY: X-RAY CHEST REASON FOR EXAM: Female, 37 years old. Seizure TECHNIQUE: Single AP portable view of the chest. COMPARISON: 11/09/2017. FINDINGS: The lungs are clear and expanded. There is no demonstrated pleural abnormality. Normal size heart. Normal mediastinum and jayashree. Normal visualized pulmonary arteries. Normal visualized aortic arch and descending thoracic aorta. Normal visualized thoracic spine. Normal visualized ribs, clavicles, and shoulders. There is no demonstrated abnormality of the visualized soft tissue structures of the upper abdomen. RAD/Chest 1 View (Portable) IMPRESSION: Normal x-ray examination of the chest. Electronically Signed: Dieudonne Gonzalez MD at 22:44 EDT , Service support ,
[2017-12-17 22:42] LABS: Absolute Lymphocyte Count 0.86 X10^3/ul (0.83-4.51); Absolute Neutrophil Count 3.2 X10^3/uL (2.0-7.7); Basophil# 0.01 X10^3/uL; Basophil% 0.2 % (0-1); Eosinophil# 0.05 X10^3/uL; Eosinophils% 1.1 % (0-5); Hematocrit 28.5 % (37-47); Hemoglobin 9.4 g/dl (12.0-15.0); Lymphocyte # 0.86 X10^3/ul (4.0); Lymphocyte % 19.7 % (19-41); Mean Corpuscular Hgb 32.3 pg (27.0-32.0); Mean Corpuscular Volume 97.9 fL (81-99); Mean Platelet Vol. 10.4 fl (6.2-12.0); Monocyte# 0.26 X10^3/uL; Monocyte% 5.9 % (0-10); Neutrophil # 3.17 X10^3/uL (2.7-7.7); Neutrophil % 72.6 % (47-70); Platelet Count 81 K/mm3 (150-450); RBC Distribution Width CV 15.8 % (11.6-14.6); RBC Distribution Width SD 56.1 fl (35.1-43.9); Red Blood Count 2.91 M/mm3 (4.2-5.4); White Blood Count 4.4 K/mm3 (4.4-11.0)
[2017-12-17 22:53] LABS: Anion Gap 11 (5-15); BUN 11 mg/dL (7-18); BUN/Creat Ratio 8.1 RATIO (10-20); Calcium,Total 9.4 mg/dL (8.5-10.1); Chloride 92 mmol/L (98-107); Creatinine, Serum 1.35 mg/dL (0.55-1.02); EST Glomerular Filtration Rate 46 mL/min (>60); Est Glom Filt Rate - Afr Amer 56 mL/min (>60); Glucose 107 mg/dL (74-106); Potassium 3.1 mmol/L (3.5-5.1); Sodium Level 133 mmol/L (136-145)
[2017-12-17 22:57] LABS: Pregnancy, Serum, hCG Quali. NEGATIVE Negative (0-9 Nonpreg)
[2017-12-17 22:59] VITALS: O2SAT 97
[2017-12-17 23:11] LABS: POSITIVE COUNT NO; POSITIVE DIFFERENTIAL NO; POSITIVE MORPHOLOGY NO
[2017-12-17 23:19] LABS: Lipase 674 U/L (73-393)
[2017-12-17 23:22] LABS: AST(SGOT) 88 U/L (15-37); Alanine Aminotransfer ALT/SGPT 37 U/L (13-56); Albumin, Serum 3.5 g/dL (3.2-5.0); Alkaline Phosphatase 100 U/L (45-117); Globulin 3.6 g/dL (2.2-4.2); Protein, Total 7.1 g/dL (6.4-8.2)
--- NOTE | 2017-12-17 23:42 | ED.VISSUMM ---
- ER Visit Summary Date of Service: 12/17/17 Chief Complaint: Seizure History of Present Illness: The patient is a 37 F with a possible seizure. This happened while she was watching TV. She was shaking and unresponsive. Her eyes rolled back in her head. It may have lasted several minutes. She was confused afterwards. She has a history of seizure in the past with eclampsia. She is not treated for seizures. She does have a history of alcohol abuse and her last drink was about a week ago. She denies any history of withdrawal seizures. She did have some upper abdominal pain with nausea vomiting. She also has a history of pancreatitis. Denies any chest pain or shortness of breath. Denies headache or trauma. Denies weakness, numbness, vision changes, or speech changes. Physical Examination: Afebrile. Heart rate 127 and blood pressure 95/68. Head and neck atraumatic. HEENT exam unremarkable. Neck is nontender. Heart tachycardic but regular. Lungs clear. Skin appears normal. No focal or lateralizing neurologic abnormalities grossly. Test Results: EKG shows sinus rhythm at a rate of 111. Hemoglobin 24 and platelets 81. Sodium 133, potassium 3.1, chloride 92, glucose 107, creatinine 1.35. Total bilirubin 1.1, AST 88, and lipase 674. Troponin normal. test negative. Chest x-ray normal and CT head unremarkable. Emergency Department Course and Treatment: Patient had suicide precautions and was placed on a monitor. She was treated with IV fluids. Patient's story is pretty concerning for seizure. The timing does not quite fit with alcohol withdrawal, but it is possible. Her workup seems fairly stable. Her lipase is elevated, but it is better than it has been. I discussed with the hospitalist who will evaluate for admission. Treatment Plan: As above Disposition: Admission Impression: 1. Alcohol withdrawal 2. Seizure 3. Pancreatitis 4. Anemia 5. Thrombocytopenia This note was generated with [employer] software. It may contain incorrect words, spelling, and punctuation that were not noted in review of the chart prior to signing ED Disposition - Plan for ED Patient: Chief Complaint: Seizure Referrals: Care Physician,No Primary [Primary Care Provider] -
--- NOTE | 2017-12-17 23:45 | PCM.HP.STD ---
Problem List (1) Alcohol withdrawal Status: Acute Qualifiers: Complication of substance-induced condition: with unspecified complication Qualified Code(s): F10.239 - Alcohol dependence with withdrawal, unspecified (2) Hypokalemia Status: Acute (3) Hyponatremia Status: Acute (4) Essential hypertension Status: Chronic (5) Pancreatitis, alcoholic, acute Status: Acute Qualifiers: Acute pancreatitis complication: no infection or necrosis Qualified Code(s): K85.20 - Alcohol induced acute pancreatitis without necrosis or infection History of Present Illness Date of Admission: 12/17/17 Chief Complaint: abdominal pain, possible seizure The patient is a 37 year old female with know alcoholism admits to relapsing one week ago by drink a bottle and a half of vodka. She states that she was laying in bed with her daughter this evening and she is told that her eyes rolled back into her head and she became unresponsive and describes what sounds like a seizure. She was admitted to our facility one month ago with similar complaint of alcohol withdrawal and pancreatitis. She now complains of epigastric pain. She has not eaten normal food since her binge drinking of one week ago. Lipase is 674 and potassium and sodium are both low. She denies chest pain or shortness of breath. She does smoke and requests a patch. She is hopeful for her rehab potential and wants to go to [facility] for help at discharge. Past Medical History Past Medical History (Chronic Problems): Chronic Problems Thrombocytopenia (Chronic) Essential hypertension (Chronic) Allergies No Known Allergies Allergy (Verified 11/07/17 18:44) Home Medications: Ambulatory Orders Medication Instructions Recorded Lisinopril 20 mg PO DAILY 09/28/17 Chlordiazepoxide [Librium] 25 mg PO TID PRN PRN #30 capsule 10/02/17 Metoprolol Tartrate [Lopressor 25 mg PO BID 11/07/17 (beta avelino)] Sertraline HCl [Zoloft] 50 mg PO DAILY 11/07/17 Folic Acid 1 mg PO DAILY@0800 #30 tab 11/09/17 Multivitamins,Ther W-Minerals 1 tab PO DAILYCM #30 tab 11/09/17 [Multivitamin With Minerals] Thiamine Hydrochloride [Vitamin B1] 100 mg PO DAILYCM #30 tab 11/09/17 lipase/pancrease/amylase 6,000 units PO TIDCM 12/17/17 [Pancrelipase (5000-17,000-27,000)] Surgical History: cholecystectomy Smoking Status: Current every day smoker - *Family History Maternal History Items: No pertinent history Review of Systems Constitutional: Denies: Chills, Fever, Weight Change HEENT: Denies: Head Aches, Sinus Congestion, Sinus Drainage Cardiovascular: Denies: Chest Pain, Palpitations Respiratory: Denies: Cough, Shortness of breath at rest, Sputum production Gastrointestinal: Reports: Abdominal Pain. Denies: Nausea, Vomiting Genitourinary: Denies: Dysuria Musculoskeletal: Denies: Joint Pain, Joint Tenderness Skin: Denies: Rash, Wounds Neurological: Denies: Numbness, Tingling, Focal weakness Psychiatric: Reports: Anxiety. Denies: Depression, Homicidal Ideations, Suicidal Ideations Hematologic/ Lymphatic: Denies: Easy Bruising, Easy Bleeding VTE Information - Inpt Only VTE Present on Admission: No VTE Mechan Device Prophylaxis: None VTE Pharm Prophylaxis ordered?: Yes - Physical Exam General: Alert, Oriented x3, Cooperative HEENT: Atraumatic, Normocephalic Neck: Supple Lungs: Clear to auscultation, Normal air movement Cardiovascular: Regular Rhythm, Normal S1, Normal S2, No murmurs, Tachycardic Abdomen: Bowel Sounds Present, Soft, Tender - epigastrium Extremities: No edema Skin: No rashes, No breakdown Musculoskeletal: No Tenderness to Palpation of Joints or Extremities Neurological: Neuro grossly intact Psych/Mental Status: Normal Affect, Appropriate Vital Signs Temp Pulse Resp BP Pulse Ox 98.4 F 127 H 18 95/68 97 12/17/17 21:44 12/17/17 21:44 12/17/17 21:44 12/17/17 21:44 12/17/17 22:59 Oxygen Delivery Method Room Air Weight: 115 lb 1.301 oz Body Mass Index (BMI) 24.9 Finger Stick Blood Glucose 127 Laboratory Tests Past 24 Hrs 12/17/17 12/17/17 12/17/17 22:10 22:10 22:10 WBC 4.4 RBC 2.91 L Hgb 9.4 L Hct 28.5 L MCV 97.9 MCH 32.3 H MCHC 33.0 RDW 15.8 H RDW Differential 56.1 H Plt Count 81 L MPV 10.4 Immature Gran % (Auto) 0.500 Neut % (Auto) 72.6 H Lymph % (Auto) 19.7 Haakon % (Auto) 5.9 Eos % (Auto) 1.1 Baso % (Auto) 0.2 Absolute Neuts (auto) 3.2 Absolute Lymphs (auto) 0.86 Total Counted Not Reportable Sodium 133 L Potassium 3.1 L Chloride 92 L Carbon Dioxide 30.0 Anion Gap 11 BUN 11 Creatinine 1.35 H Estim Creat Clear Calc 46.10 Est GFR (MDRD) Af Amer 56 L Est GFR (MDRD) Non-Af 46 L BUN/Creatinine Ratio 8.1 L Glucose 107 H Calcium 9.4 Total Bilirubin Direct Bilirubin AST ALT Alkaline Phosphatase Troponin I < 0.02 Total Protein Albumin Globulin Lipase Serum , Qual NEGATIVE 12/17/17 12/17/17 22:10 22:10 WBC RBC Hgb Hct MCV MCH MCHC RDW RDW Differential Plt Count MPV Immature Gran % (Auto) Neut % (Auto) Lymph % (Auto) Haakon % (Auto) Eos % (Auto) Baso % (Auto) Absolute Neuts (auto) Absolute Lymphs (auto) Total Counted Sodium Potassium Chloride Carbon Dioxide Anion Gap BUN Creatinine Estim Creat Clear Calc Est GFR (MDRD) Af Amer Est GFR (MDRD) Non-Af BUN/Creatinine Ratio Glucose Calcium Total Bilirubin 1.10 H Direct Bilirubin 0.30 AST 88 H ALT 37 Alkaline Phosphatase 100 Troponin I Total Protein 7.1 Albumin 3.5 Globulin 3.6 Lipase 674 H Serum , Qual POC Glucose 12/17/17 21:51 POC Glucose 127 H Assessment/Plan Chronic Problems Thrombocytopenia (Chronic) Essential hypertension (Chronic) Pancreatitis, alcoholic, acute (Chronic) Acute Problems - Pancreatitis - Alcoholism Plan - admit to general medical floor - NPO with D51/2 normal saline with 20meq of KCl at 75 cc/hr - CIWA protocol - CBC, CMP,Lipase in am - LMWH for DVT prophylaxis - Nicoderm patch Code Visit Inpatient E&M: 85390 Init Hosp L3
[2017-12-18] VITALS (13 sets, daily range): BP systolic 100–155; BP diastolic 73–107; PULSE 84–108; RESP 16–25; TEMP 35.8–38; O2SAT 93–100; BMI 23.6
--- NOTE | 2017-12-18 02:26 | NURSING ---
SPOKE TO PT REGARDING [facility] PROGRAM PT IS INTERESTED. MESSAGE LEFT FOR [facility] TO SEE PT TODAY.
[2017-12-18 06:17] LABS: Hematocrit 25.2 % (37-47); Hemoglobin 8.2 g/dl (12.0-15.0); Mean Corp Hgb Conc 32.5 g/gl (32-36); Mean Corpuscular Hgb 32.5 pg (27.0-32.0); Mean Platelet Vol. 10.9 fl (6.2-12.0); Platelet Count 77 K/mm3 (150-450); RBC Distribution Width SD 52.4 fl (35.1-43.9); Red Blood Count 2.52 M/mm3 (4.2-5.4); White Blood Count 3.7 K/mm3 (4.4-11.0)
[2017-12-18 06:19] LABS: Scan Indicated on CBC? Y/N NO
[2017-12-18 06:35] LABS: Anion Gap 9 (5-15); BUN 10 mg/dL (7-18); BUN/Creat Ratio 8.1 RATIO (10-20); Chloride 96 mmol/L (98-107); Creatinine, Serum 1.24 mg/dL (0.55-1.02); EST Glomerular Filtration Rate 51 mL/min (>60); Est Glom Filt Rate - Afr Amer 62 mL/min (>60); Glucose 95 mg/dL (74-106); Lipase 406 U/L (73-393); Potassium 2.9 mmol/L (3.5-5.1); Sodium Level 136 mmol/L (136-145)
[2017-12-18] MEDS: Acetaminophen 325 MG Tablet 650 MG PO (08:23)
--- NOTE | 2017-12-18 08:58 | PN_ITS ---
Subjective: Patient is a 37-year-old female with a past medical history of alcohol abuse, pancreatitis and hypertension who was brought to the emergency department at [facility] on 12/17/2017 after having a possible seizure at home. Family stated she was shaking and unresponsive. She was postictal afterwards. She has a history of seizure in the past but had eclampsia at the time. History is positive for alcohol abuse and she stated her last drink was 1 week prior to coming to the emergency room. She binge drinks. She was admitted to [facility] from 09/28/17-10/02 for acute alcohol withdrawal/pancreatitis and readmitted 10/07/17 for hyponatremia and hypokalemia. She refused treatment for chronic alcohol abuse initially but her sister came to the hospital and spoke to her and she was agreeable to outpt treatment only. she has 5 children at home. She got last February and then she started binge drinking to help with anxiety. She was started on zoloft at the last admission and went home with a Librium taper but has been using it as needed in the AM for increased stress. Recently the father of 2 of her children has petitioned to have visitation. She tells me that she fell off the wagon for a few days but has not had a drink in 10 days. Vital signs in the emergency room at presentation were temperature 98.4, pulse rate 127, blood pressure 95/68, respiratory rate 18 and pulse ox ranged from 94-97% on room air. CBC showed pancytopenia with white blood cell count of 3.7, hemoglobin of 8.2 and platelets of 77,000. Potassium was low at 3.1 and the sodium was 133. BUN was 10 with a creatinine of 1.35. AST was elevated at 88 with an ALT of 37 consistent with alcoholic hepatitis. Lipase was 674 and is chronically elevated now. CT brain was normal. Afebrile since admission. Tachycardia has improved with hydration. Current blood pressure is 124/94. All lab was personally reviewed. Sodium is 136 and the potassium today is 2.9, down from 3.1 at admission. Creatinine has decreased to 1.24. Lipase is 406 today. She is alert and appears to be in no distress. She is not tremulous. She actually looks much better than she did at her last admission. ETOH was <3 at admission. She does tell me that she has fallen a few times over the past year and she has struck her head. She is making good eye contact when talking to me and I think she is sincere and telling the truth. - Physical Exam General: Alert, Oriented x3, Cooperative, No apparent distress, Well developed HEENT: Atraumatic, PERRLA, EOMI Oral: Dry Mucosa Neck: Supple, Trachea Midline Lungs: Clear to auscultation Cardiovascular: Regular Rhythm, Normal S1, Normal S2, No Gallop, - - increased resting HR Abdomen: Bowel Sounds Present, Soft, Non Tender, Non-Distended Extremities: No cyanosis, No edema Skin: No rashes, No breakdown Neurological: Cranial nerves II-XII grossly intact, Neuro grossly intact Psych/Mental Status: Normal Affect, Appropriate Vital Signs Temp Pulse Resp BP Pulse Ox 96.4 F L 105 H 18 124/94 H 95 12/18/17 07:46 12/18/17 07:46 12/18/17 07:46 12/18/17 07:46 12/18/17 07:46 Oxygen Delivery Method Room Air Weight: 109 lb 2.061 oz Body Mass Index (BMI) 23.6 Intake and Output for Last 24 Hours 12/16/17 12/17/17 12/18/17 23:59 23:59 23:59 Intake Total 437 / 437 Balance 437 / 437 Laboratory Tests Past 24 Hrs 12/18/17 12/18/17 06:07 06:07 WBC 3.7 L RBC 2.52 L Hgb 8.2 L Hct 25.2 L MCV 100.0 H MCH 32.5 H MCHC 32.5 RDW 15.0 H RDW Differential 52.4 H Plt Count 77 L MPV 10.9 Sodium 136 Potassium 2.9 L Chloride 96 L Carbon Dioxide 31.0 Anion Gap 9 BUN 10 Creatinine 1.24 H Estim Creat Clear Calc 47.60 Est GFR (MDRD) Af Amer 62 Est GFR (MDRD) Non-Af 51 L BUN/Creatinine Ratio 8.1 L Glucose 95 Calcium 9.0 Lipase 406 H Medical Necessity - Tobacco Use Smoking Status: Current every day smoker Assessment/Plan Impressions 1. seizure - This is not consistent with an alcohol withdrawal seizure since it has been 10 days since her last drink. EEG and neuro consult with Dr. Valenzuela. PRN Ativan for seizure. 2. anxiety/depression - not adequately controlled. Zoloft increased to 100 mg daily and Buspar added for anxiety. Agreeable to consult. 3. hx of alcoholism. Plans on attending an OP program, [facility] since she and her sister have 5 children at home and the sister works.....Kvng is the pinsetter mechanic automatic. Her sister is a recovering heroin addict and per the patient she is clean and working. 4. hx of pancreatitis - Lipase is the best I have seen it and she states she is eating better. She had 1 episode of abdominal pain since her last admission and she cut diet back to ice chips and then advanced as tolerated. 5. pancytopenia? why? 6. abnormal LFT's with the AST > 2 times the ALT - this is normally seen with alcoholic hepatitis but with the seizure last night it may be due to seizure. 7. HTN - restart Metoprolol. 8. Hyponatremia/hypokalemia 9. FLORENCE - likely due to dehydration She is agreeable to consult. EEG and neuro consult ordered. Hold off on AED's until the EEG is done. PRN Ativan ordered for seizure. Recheck the lab in the AM Increase the Zoloft to 100 mg daily and add Buspar. Avoid Benzo's Code Visit Inpatient E&M: 76417 Subs Hosp L2
--- NOTE | 2017-12-18 10:08 | CASEMGMT ---
RN CM Note: per rounds, Dr. Song would like Behavioral health referral for pt's coping/anxiety. Margarte JORDAN updated, referral placed. Declan STEINN RN ACM
[2017-12-18] MEDS: Enoxaparin 40 MG/0.4 ML Syringe SC (10:13)
[2017-12-18] MEDS: 0.9% Normal Saline 1,000 ML 200 ML IV ×2 (10:40→15:50)
[2017-12-18] MEDS: Sertraline 100 MG Tablet PO (11:40)
[2017-12-18] MEDS: LIPASE/PROTEASE/AMYLASE 1 EACH CAPSULE.DR 1 CAP PO ×2 (11:40→16:49)
[2017-12-18 11:46] LABS: Phosphorus 3.5 mg/dL (2.5-4.9)
--- NOTE | 2017-12-18 13:42 | CASEMGMT ---
Social Work Assessment Referral Date: 12/18/2017 Date of Assessment: 12/18/2017 Reason for consult: Behavioral Health referral Informant: KIE FARNSWORTH, Dr. Song SW received referral from IKE Perez who states that Dr. Song placed a referral for behavioral health. JULIAN met with pt to complete initial assessment and to determine discharge needs. SW introduced self and role at [facility]. Pt states that she lives with her sister and takes care of their five kids. Pt states that before coming to the hospital she was previously independent. Pt states that her sister, kids, and her mom are all good support for her. Pt states that she recently used alcohol after being sober for about a month. Pt states that for two days she drank a bottle and half of vodka. Pt states that she detox herself though as she states that her test came back negative for alcohol. Pt states that she is currently dealing with a lot of stress. Pt states that the father of her sister's children are taking her to court for custody, pt recently got a divorce, and is currently out of work. Pt states that to deal with this stress she started drinking again. SW offered support to pt. Pt states that she knows that drinking again was a mistake and that she wants to receive help to not binge drink again. SW asked pt about her coping skills that she could utilize to deal with stressful situations. Pt states that she likes to cook, read, sing, and is spiritual. SW informed pt that Dr. Song placed a referral for behavioral health and asked if pt would be interested. Pt states that she will be following up with [facility] to see about their programs and to see what services she wants to participate in. JULIAN offered encouragement to pt to begin these services and encouraged pt to follow up with those agencies to see what services are available to pt. Pt was receptive to this. JULIAN informed IKE Perez of this. Substance Abuse Hx: Pt has a history of alcohol abuse. Pt states that she wants to get involved with counseling services to assist with her alcohol abuse. Mental Health Hx: Pt states that she has a history of anxiety and depression. Pt states that she is currently taking Zoloft and that she was previously taking Librium. Pt states that her doctor is going to prescribed her something else for her anxiety. Pt currently denied any current anxiety or depressive symptoms. As noted above, pt is interested in following up with services at [facility] or [facility]. Pt states that with her medication and counseling, she is hopeful that she be able to receive the help that she needs. SW continued to offer positive support for pt and encouraged her to follow up with either [facility] or [facility] at discharge. Pt was receptive to this. Pt denied additional needs at this time. Plan: Return home at discharge and follow up with [facility] or [facility] to receive counseling services and or substance abuse treatment. Margaret Peres ACCOUNT ASSOCIATE, NUT [employer]ER
[2017-12-18] MEDS: busPIRone 5 MG Tablet PO ×2 (13:49→21:03)
[2017-12-18] MEDS: Loperamide 2 MG Capsule 4 MG PO (16:11)
--- NOTE | 2017-12-18 16:12 | NURSING ---
DR CHASE NOTIFIED OF PTS DIARRHEA. NEW ORDERS RECEIVED.
[2017-12-18 20:42] LABS: Thyroid Stim Hormone (TSH) 2.23 uIU/mL (0.358-3.74)
[2017-12-18] MEDS: Metoprolol Tartrate 25 MG Tablet PO (21:02)
[2017-12-19] VITALS (10 sets, daily range): BP systolic 131–154; BP diastolic 85–102; PULSE 81–87; RESP 15–18; TEMP 36.6–36.9; O2SAT 96–98
[2017-12-19] MEDS: busPIRone 5 MG Tablet PO ×3 (06:10→22:00)
[2017-12-19 07:05] LABS: Hematocrit 23.9 % (37-47); Hemoglobin 7.8 g/dl (12.0-15.0); Mean Corp Hgb Conc 32.6 g/gl (32-36); Mean Corpuscular Hgb 33.1 pg (27.0-32.0); Mean Corpuscular Volume 101.3 fL (81-99); Mean Platelet Vol. 9.8 fl (6.2-12.0); Platelet Count 70 K/mm3 (150-450); RBC Distribution Width SD 52.8 fl (35.1-43.9); Red Blood Count 2.36 M/mm3 (4.2-5.4); White Blood Count 3.7 K/mm3 (4.4-11.0)
[2017-12-19 07:07] LABS: Scan Indicated on CBC? Y/N NO
[2017-12-19 07:34] LABS: ALB/GLOB Ratio 0.9 RATIO (0.9-2.4); AST(SGOT) 83 U/L (15-37); Alanine Aminotransfer ALT/SGPT 38 U/L (13-56); Albumin, Serum 2.8 g/dL (3.2-5.0); Alkaline Phosphatase 74 U/L (45-117); Anion Gap 8 (5-15); BUN 5 mg/dL (7-18); BUN/Creat Ratio 8.2 RATIO (10-20); Calcium,Total 9.6 mg/dL (8.5-10.1); Chloride 105 mmol/L (98-107); Creatinine, Serum 0.61 mg/dL (0.55-1.02); EST Glomerular Filtration Rate 116 mL/min (>60); Est Glom Filt Rate - Afr Amer 141 mL/min (>60); Estimated Creatinine Clearance 96.76 ml/min; Globulin 3.1 g/dL (2.2-4.2); Glucose 87 mg/dL (74-106); Magnesium 0.7 mg/dL (1.6-2.6); Phosphorus 2.8 mg/dL (2.5-4.9); Potassium 3.5 mmol/L (3.5-5.1); Protein, Total 5.9 g/dL (6.4-8.2); Sodium Level 139 mmol/L (136-145)
--- NOTE | 2017-12-19 08:35 | CASEMGMT ---
SW spoke w/physician, pt had agreed to speak w/Behavioral Health when speaking w/physician, and she would still like Behavioral Health to see pt. SW called Juwan in Behavioral Health, he will try to come over to see pt this afternoon. FLORY Carver, DIRECTOR HOSPICE OPERATIONS
[2017-12-19] MEDS: Enoxaparin 40 MG/0.4 ML Syringe SC (10:03)
[2017-12-19] MEDS: Sertraline 100 MG Tablet PO (10:03)
[2017-12-19] MEDS: Folic Acid 1 MG Tablet PO (10:03)
[2017-12-19] MEDS: Multivitamins,Ther W-Minerals Tablet 1 TABLET PO (10:03)
[2017-12-19] MEDS: LIPASE/PROTEASE/AMYLASE 1 EACH CAPSULE.DR 1 CAP PO ×3 (10:03→17:55)
[2017-12-19] MEDS: Metoprolol Tartrate 25 MG Tablet PO ×2 (10:08→21:59)
--- NOTE | 2017-12-19 10:27 | PN_ITS ---
Subjective: She had a low-grade fever yesterday to 100.4 but has been afebrile since 8 PM on 12/18/2017. Fair oral intake. All lab was personally reviewed. She remains pancytopenic with a WBC of 3.7, hemoglobin of 7.8 and platelet count of 70,000. I reviewed all the labs from her most recent admission and she is folate deficient. No seizures since admission. No complaints. Denies nausea today and also denies abdominal pain. Objective: - Physical Exam General: Alert, Oriented x3, Cooperative, No apparent distress, Well developed HEENT: Atraumatic, PERRLA, EOMI Oral: Dry Mucosa Neck: Supple, Trachea Midline Lungs: Clear to auscultation Cardiovascular: Regular Rhythm, Normal S1, Normal S2, No Gallop, - - increased resting HR Abdomen: Bowel Sounds Present, Soft, Non Tender, Non-Distended Extremities: No cyanosis, No edema Skin: No rashes, No breakdown Neurological: Cranial nerves II-XII grossly intact, Neuro grossly intact Psych/Mental Status: Normal Affect, Appropriate - Physical Exam Vital Signs Temp Pulse Resp BP Pulse Ox 97.9 F 82 15 131/85 H 97 12/19/17 06:00 12/19/17 10:08 12/19/17 06:00 12/19/17 06:00 12/19/17 02:05 Oxygen Delivery Method Room Air Weight: 109 lb 2.061 oz Body Mass Index (BMI) 23.6 Intake and Output for Last 24 Hours 12/17/17 12/18/17 12/19/17 23:59 23:59 23:59 Intake Total 2142 / 2142 1445 / 1445 Balance 2142 / 2142 1445 / 1445 Laboratory Tests Past 24 Hrs 12/18/17 12/18/17 12/19/17 06:07 06:07 06:50 WBC 3.7 L RBC 2.36 L Hgb 7.8 L Hct 23.9 L MCV 101.3 H MCH 33.1 H MCHC 32.6 RDW 15.0 H RDW Differential 52.8 H Plt Count 70 L MPV 9.8 Sodium Potassium Chloride Carbon Dioxide Anion Gap BUN Creatinine Estim Creat Clear Calc Est GFR (MDRD) Af Amer Est GFR (MDRD) Non-Af BUN/Creatinine Ratio Glucose Calcium Phosphorus 3.5 Magnesium 1.0 L Total Bilirubin AST ALT Alkaline Phosphatase Total Protein Albumin Globulin Albumin/Globulin Ratio TSH 2.23 12/19/17 06:50 WBC RBC Hgb Hct MCV MCH MCHC RDW RDW Differential Plt Count MPV Sodium 139 Potassium 3.5 Chloride 105 Carbon Dioxide 26.0 Anion Gap 8 BUN 5 L Creatinine 0.61 Estim Creat Clear Calc 96.76 Est GFR (MDRD) Af Amer 141 Est GFR (MDRD) Non-Af 116 BUN/Creatinine Ratio 8.2 L Glucose 87 Calcium 9.6 Phosphorus 2.8 Magnesium 0.7 L* Total Bilirubin 0.50 AST 83 H ALT 38 Alkaline Phosphatase 74 Total Protein 5.9 L Albumin 2.8 L Globulin 3.1 Albumin/Globulin Ratio 0.9 TSH Medical Necessity - Tobacco Use Smoking Status: Current every day smoker Assessment/Plan Impressions 1. seizure - This is not consistent with an alcohol withdrawal seizure since it has been 10 days since her last drink. EEG and neuro consult with Dr. Valenzuela. PRN Ativan for seizure. 2. anxiety/depression - not adequately controlled. Zoloft increased to 100 mg daily and Buspar added for anxiety. Agreeable to consult. 3. hx of alcoholism. 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 Her sister is a recovering heroin addict and per the patient she is clean and working. 4. hx of pancreatitis - Lipase is the best I have seen it and she states she is eating better. She had 1 episode of abdominal pain since her last admission and she cut diet back to ice chips and then advanced as tolerated. 5. pancytopenia? why? 6. abnormal LFT's with the AST > 2 times the ALT - this is normally seen with alcoholic hepatitis but with the seizure last night it may be due to seizure. 7. HTN - restart Metoprolol. 8. Hyponatremia/hypokalemia 9. FLORENCE - likely due to dehydration Await the results of the EEG and Dr. Bansal's consult will have meet with her today No AED's at this time....PRN Ativan for a seizure supplement the folate and recheck the lab tomorrow
[2017-12-19 11:20] LABS: Immature Platelet Fraction 7.4 % (1.0-7.9); RET-HE 30.4 pg (30-35); Reticulocyte Count 3.07 % (0.5-1.5)
[2017-12-19] MEDS: 0.9% NaCl Peripheral Flush Adult/Peds IV (11:26)
[2017-12-19 11:28] LABS: Ferritin 1489 ng/mL (8-252); Iron 40 ug/dL (50-170); Iron Binding Capacity,Total 226 ug/dL (250-450); LDH 217 U/L (84-246); PERCENT IRON SATURATION 17.7 % (15.0-55.0)
--- NOTE | 2017-12-19 12:08 | BH.NOTE ---
BH: Inpatient Note - Notes Behavioral Health Inpatient Note: 12/19/17 12:08 Referral to [facility] to due to depression, anxiety, and substance abuse issues. Met with pt in her room. Pt is alert and oriented. Pleasant and cooperative. Denies any suicidal ideations, plan, or intent. No hx of attempts reported. Denies any HI or psychosis. Pt reports chronic depression and anxiety with increased symptoms in the past few years due to psychosocial stressors. Admits to using alcohol to self-medicate more recently. Appears motivated to remain sober. Anxiety and depression currently impacting her sleep, appetite, energy, and motivation. Reports primary stressor as finances. Also reports isolative behaviors as the result of social anxiety. We discussed the benefits of counseling and MH treatment. Pt is agreeable and reports that she already has set up counseling services at [facility]. Reports that medication changes in the hospital have also improved symptoms with plan to follow up with her PCP to continue with medication management. She was given a list of community resources and referrals. Also given information on [facility] IOP program.
--- NOTE | 2017-12-19 13:07 | PCM.CONS.GEN ---
Reason for Consult Date of Consultation: 12/19/17 Reason for Consultation: SEIZURE History of Present Illness: The patient is a 37 year old RIGHT HANDED white female with one sz 17 yrs ago associated with ecclampsia, now admitted due to another sz. her seizure was witnessed by her sister at home associated with tongue biting. no incontinence.. had been feeling poorly leading up this. reports etoh, but last drink 10days prior to the seizure. reports difficulty eating and drinking, now feels fine now. hx of pancreatitis but not now. admits to poor sleep due to stress and anxiety. per h&p:The patient is a 37 year old female with know alcoholism admits to relapsing one week ago by drink a bottle and a half of vodka. She states that she was laying in bed with her daughter this evening and she is told that her eyes rolled back into her head and she became unresponsive and describes what sounds like a seizure. She was admitted to our facility one month ago with similar complaint of alcohol withdrawal and pancreatitis. She now complains of epigastric pain. She has not eaten normal food since her binge drinking of one week ago. Lipase is 674 and potassium and sodium are both low. She denies chest pain or shortness of breath. She does smoke and requests a patch. She is hopeful for her rehab potential and wants to go to [facility] for help at discharge. Past Medical History Past Medical History (Chronic Problems): Chronic Problems Thrombocytopenia (Chronic) Essential hypertension (Chronic) Allergies No Known Allergies Allergy (Verified 11/07/17 18:44) Home Medications: Ambulatory Orders Medication Instructions Recorded Lisinopril 20 mg PO DAILY 09/28/17 Chlordiazepoxide [Librium] 25 mg PO TID PRN PRN #30 capsule 10/02/17 Sertraline HCl [Zoloft] 50 mg PO DAILY 11/07/17 Folic Acid 1 mg PO DAILY@0800 #30 tab 11/09/17 Multivitamins,Ther W-Minerals 1 tab PO DAILYCM #30 tab 11/09/17 [Multivitamin With Minerals] Thiamine Hydrochloride [Vitamin B1] 100 mg PO DAILYCM #30 tab 11/09/17 lipase/pancrease/amylase 6,000 units PO TIDCM 12/17/17 [Pancrelipase (5000-17,000-27,000)] Metoprolol Tartrate 25 mg PO BID 12/18/17 Surgical History: cholecystectomy Smoking Status: Current every day smoker - *Family History Maternal History Items: No pertinent history Review of Systems Constitutional: Denies: Chills, Fever, Weight Change HEENT: Denies: Head Aches, Sinus Congestion, Sinus Drainage Cardiovascular: Denies: Chest Pain, Palpitations Respiratory: Denies: Cough, Shortness of breath at rest, Sputum production Gastrointestinal: Denies: Abdominal Pain, Nausea, Vomiting Genitourinary: Denies: Dysuria Musculoskeletal: Denies: Joint Pain, Joint Tenderness Skin: Denies: Rash, Wounds Neurological: Denies: Numbness, Tingling, Focal weakness Psychiatric: Denies: Anxiety, Depression, Homicidal Ideations, Suicidal Ideations Hematologic/ Lymphatic: Denies: Easy Bruising, Easy Bleeding - Physical Exam General: Alert, Oriented x3, Cooperative HEENT: Atraumatic, PERRLA, EOMI, Normocephalic Neck: Supple, No JVD, Negative Carotid Bruits Lungs: Clear to auscultation, Normal air movement Cardiovascular: Regular rate, No murmurs Abdomen: Bowel Sounds Present, Soft, Non Tender Extremities: No edema, Capillary Refill Less than 3 Seconds Skin: No rashes, No breakdown Musculoskeletal: No Tenderness to Palpation of Joints or Extremities Neurological: Cranial nerves II-XII grossly intact Psych/Mental Status: Normal Affect, Appropriate Vital Signs Temp Pulse Resp BP Pulse Ox 36.7 C 82 16 154/102 H 96 12/19/17 11:13 12/19/17 11:13 12/19/17 11:13 12/19/17 11:13 12/19/17 11:13 Oxygen Delivery Method Room Air Weight: 49.5 kg Body Mass Index (BMI) 23.6 Intake and Output for Last 24 Hours 12/17/17 12/18/17 12/19/17 23:59 23:59 23:59 Intake Total 214 / 214 1445 / 1445 Balance 214 / 214 1445 / 1445 Laboratory Tests Past 24 Hrs 12/18/17 12/19/17 12/19/17 06:07 06:50 06:50 WBC 3.7 L RBC 2.36 L Hgb 7.8 L Hct 23.9 L MCV 101.3 H MCH 33.1 H MCHC 32.6 RDW 15.0 H RDW Differential 52.8 H Plt Count 70 L MPV 9.8 Immature Plt Fraction Retic Count Immature Retic Fraction Retic Hgb Equivalent Haptoglobin Sodium 139 Potassium 3.5 Chloride 105 Carbon Dioxide 26.0 Anion Gap 8 BUN 5 L Creatinine 0.61 Estim Creat Clear Calc 96.76 Est GFR (MDRD) Af Amer 141 Est GFR (MDRD) Non-Af 116 BUN/Creatinine Ratio 8.2 L Glucose 87 Calcium 9.6 Phosphorus 2.8 Magnesium 0.7 L* Iron TIBC Iron Saturation Ferritin Total Bilirubin 0.50 AST 83 H ALT 38 Alkaline Phosphatase 74 Lactate Dehydrogenase Total Protein 5.9 L Albumin 2.8 L Globulin 3.1 Albumin/Globulin Ratio 0.9 TSH 2.23 12/19/17 12/19/17 12/19/17 06:50 11:00 11:00 WBC RBC Hgb Hct MCV MCH MCHC RDW RDW Differential Plt Count MPV Immature Plt Fraction 7.4 Retic Count 3.07 H Immature Retic Fraction 15.50 Retic Hgb Equivalent 30.4 Haptoglobin Pending Sodium Potassium Chloride Carbon Dioxide Anion Gap BUN Creatinine Estim Creat Clear Calc Est GFR (MDRD) Af Amer Est GFR (MDRD) Non-Af BUN/Creatinine Ratio Glucose Calcium Phosphorus Magnesium Iron 40 L TIBC 226 L Iron Saturation 17.7 Ferritin 1489 H Total Bilirubin AST ALT Alkaline Phosphatase Lactate Dehydrogenase 217 Total Protein Albumin Globulin Albumin/Globulin Ratio TSH Current Home Med List Medication Instructions Recorded Confirmed Type Lisinopril 20 mg PO DAILY 09/28/17 12/18/17 History Chlordiazepoxide [Librium] 25 mg PO TID PRN PRN #30 capsule 10/02/17 12/18/17 Rx Sertraline HCl [Zoloft] 50 mg PO DAILY 11/07/17 12/18/17 History Folic Acid 1 mg PO DAILY@0800 #30 tab 11/09/17 12/18/17 Rx Multivitamins,Ther W-Minerals 1 tab PO DAILYCM #30 tab 11/09/17 12/18/17 Rx [Multivitamin With Minerals] Thiamine Hydrochloride [Vitamin B1] 100 mg PO DAILYCM #30 tab 11/09/17 12/18/17 Rx lipase/pancrease/amylase 6,000 units PO TIDCM 12/17/17 12/18/17 History [Pancrelipase (5000-17,000-27,000)] Metoprolol Tartrate 25 mg PO BID 12/18/17 12/18/17 History Current Medications Generic Name Dose Route Start Last Admin Trade Name Freq PRN Reason Stop Dose Admin Acetaminophen 650 mg 12/18/17 08:03 12/18/17 08:23 Tylenol PO 650 mg Q4H PRN PRN Administration PAIN Buspirone HCl 5 mg 12/18/17 14:00 12/19/17 06:10 Buspar PO 5 mg TID DOV Administration Enoxaparin Sodium 40 mg 12/18/17 10:00 12/19/17 10:03 Lovenox SC 40 mg DAILY@1000 DOV Administration Magnesium Sulfate 4 gm in 100 mls @ 25 mls/hr 12/19/17 11:00 12/19/17 11:34 4 Gm/100 Ml IV 12/19/17 14:59 25 mls/hr X1 ONE Administration Folic Acid 1 mg/ Sodium 50.2 mls @ 200 mls/hr 12/19/17 10:39 12/19/17 11:27 Chloride IV 200 mls/hr DAILY DOV Administration Loperamide HCl 2 mg 12/18/17 20:00 Imodium PO Q4H PRN PRN Diarrhea Lorazepam 1 mg 12/18/17 10:21 Ativan IV Q4H PRN PRN Seizure Magnesium Hydroxide 30 ml 12/18/17 01:05 Milk Of Magnesia PO DAILY PRN PRN Constipation Magnesium Oxide 400 mg 12/19/17 17:00 Mag-Ox 400 PO BIDCM [facility] Metoprolol Tartrate 25 mg 12/18/17 22:00 12/19/17 10:08 Lopressor (Beta Balta) PO 25 mg BID [facility] Administration Multivitamins/Minerals 1 tablet 12/19/17 08:00 12/19/17 10:03 Multivitamin With Minerals PO 1 tablet DAILYCM [facility] Administration Nicotine 21 mg 12/19/17 12:09 Nicoderm Cq (Pbkc) TRANSDERM. DAILY [facility] Nutritional Formula (Lactose Free) 120 ml 12/18/17 14:00 12/19/17 10:08 Ensure Clear PO 120 ml 4X/DAY DOV Administration Pancrelipase 1 each 12/18/17 12:00 12/19/17 11:[address] 6,000 Units Capsule PO 1 each TIDCM [facility] Administration Pantoprazole Sodium 20 mg 12/19/17 22:00 Protonix PO BID DOV Sertraline HCl 100 mg 12/20/17 10:00 Zoloft PO DAILY DOV Sodium Chloride 5 - 30 ml 12/18/17 01:49 12/19/17 11:26 IV 10 ml UD PRN Administration SALINE FLUSH ct head normal by report Assessment/Plan sz due to etoh withdrawal vs syncopal sz avoid withdrawal avoid sleep deprivation and starvation state agree with outpt psychiatric followup no driving for 3 months
--- NOTE | 2017-12-19 13:18 | CON.PCM_ITS ---
Reason for Consult Date of Consultation: 12/19/17 Reason for Consultation: SEIZURE History of Present Illness: The patient is a 37 year old RIGHT HANDED white female with one sz 17 yrs ago associated with ecclampsia, now admitted due to another sz. her seizure was witnessed by her sister at home associated with tongue biting. no incontinence.. had been feeling poorly leading up this. reports etoh, but last drink 10days prior to the seizure. reports difficulty eating and drinking, now feels fine now. hx of pancreatitis but not now. admits to poor sleep due to stress and anxiety. per h&p:The patient is a 37 year old female with know alcoholism admits to relapsing one week ago by drink a bottle and a half of vodka. She states that she was laying in bed with her daughter this evening and she is told that her eyes rolled back into her head and she became unresponsive and describes what sounds like a seizure. She was admitted to our facility one month ago with similar complaint of alcohol withdrawal and pancreatitis. She now complains of epigastric pain. She has not eaten normal food since her binge drinking of one week ago. Lipase is 674 and potassium and sodium are both low. She denies chest pain or shortness of breath. She does smoke and requests a patch. She is hopeful for her rehab potential and wants to go to [facility] for help at discharge. Past Medical History Past Medical History (Chronic Problems): Chronic Problems Thrombocytopenia (Chronic) Essential hypertension (Chronic) Allergies No Known Allergies Allergy (Verified 11/07/17 18:44) Home Medications: Ambulatory Orders Medication Instructions Recorded Lisinopril 20 mg PO DAILY 09/28/17 Chlordiazepoxide [Librium] 25 mg PO TID PRN PRN #30 capsule 10/02/17 Sertraline HCl [Zoloft] 50 mg PO DAILY 11/07/17 Folic Acid 1 mg PO DAILY@0800 #30 tab 11/09/17 Multivitamins,Ther W-Minerals 1 tab PO DAILYCM #30 tab 11/09/17 [Multivitamin With Minerals] Thiamine Hydrochloride [Vitamin B1] 100 mg PO DAILYCM #30 tab 11/09/17 lipase/pancrease/amylase 6,000 units PO TIDCM 12/17/17 [Pancrelipase (5000-17,000-27,000)] Metoprolol Tartrate 25 mg PO BID 12/18/17 Surgical History: cholecystectomy Smoking Status: Current every day smoker - *Family History Maternal History Items: No pertinent history Review of Systems Constitutional: Denies: Chills, Fever, Weight Change HEENT: Denies: Head Aches, Sinus Congestion, Sinus Drainage Cardiovascular: Denies: Chest Pain, Palpitations Respiratory: Denies: Cough, Shortness of breath at rest, Sputum production Gastrointestinal: Denies: Abdominal Pain, Nausea, Vomiting Genitourinary: Denies: Dysuria Musculoskeletal: Denies: Joint Pain, Joint Tenderness Skin: Denies: Rash, Wounds Neurological: Denies: Numbness, Tingling, Focal weakness Psychiatric: Denies: Anxiety, Depression, Homicidal Ideations, Suicidal Ideations Hematologic/ Lymphatic: Denies: Easy Bruising, Easy Bleeding - Physical Exam General: Alert, Oriented x3, Cooperative HEENT: Atraumatic, PERRLA, EOMI, Normocephalic Neck: Supple, No JVD, Negative Carotid Bruits Lungs: Clear to auscultation, Normal air movement Cardiovascular: Regular rate, No murmurs Abdomen: Bowel Sounds Present, Soft, Non Tender Extremities: No edema, Capillary Refill Less than 3 Seconds Skin: No rashes, No breakdown Musculoskeletal: No Tenderness to Palpation of Joints or Extremities Neurological: Cranial nerves II-XII grossly intact Psych/Mental Status: Normal Affect, Appropriate Vital Signs Temp Pulse Resp BP Pulse Ox 36.7 C 82 16 154/102 H 96 12/19/17 11:13 12/19/17 11:13 12/19/17 11:13 12/19/17 11:13 12/19/17 11:13 Oxygen Delivery Method Room Air Weight: 49.5 kg Body Mass Index (BMI) 23.6 Intake and Output for Last 24 Hours 12/17/17 12/18/17 12/19/17 23:59 23:59 23:59 Intake Total 214 / 214 1445 / 1445 Balance 214 / 214 1445 / 1445 Laboratory Tests Past 24 Hrs 12/18/17 12/19/17 12/19/17 06:07 06:50 06:50 WBC 3.7 L RBC 2.36 L Hgb 7.8 L Hct 23.9 L MCV 101.3 H MCH 33.1 H MCHC 32.6 RDW 15.0 H RDW Differential 52.8 H Plt Count 70 L MPV 9.8 Immature Plt Fraction Retic Count Immature Retic Fraction Retic Hgb Equivalent Haptoglobin Sodium 139 Potassium 3.5 Chloride 105 Carbon Dioxide 26.0 Anion Gap 8 BUN 5 L Creatinine 0.61 Estim Creat Clear Calc 96.76 Est GFR (MDRD) Af Amer 141 Est GFR (MDRD) Non-Af 116 BUN/Creatinine Ratio 8.2 L Glucose 87 Calcium 9.6 Phosphorus 2.8 Magnesium 0.7 L* Iron TIBC Iron Saturation Ferritin Total Bilirubin 0.50 AST 83 H ALT 38 Alkaline Phosphatase 74 Lactate Dehydrogenase Total Protein 5.9 L Albumin 2.8 L Globulin 3.1 Albumin/Globulin Ratio 0.9 TSH 2.23 12/19/17 12/19/17 12/19/17 06:50 11:00 11:00 WBC RBC Hgb Hct MCV MCH MCHC RDW RDW Differential Plt Count MPV Immature Plt Fraction 7.4 Retic Count 3.07 H Immature Retic Fraction 15.50 Retic Hgb Equivalent 30.4 Haptoglobin Pending Sodium Potassium Chloride Carbon Dioxide Anion Gap BUN Creatinine Estim Creat Clear Calc Est GFR (MDRD) Af Amer Est GFR (MDRD) Non-Af BUN/Creatinine Ratio Glucose Calcium Phosphorus Magnesium Iron 40 L TIBC 226 L Iron Saturation 17.7 Ferritin 1489 H Total Bilirubin AST ALT Alkaline Phosphatase Lactate Dehydrogenase 217 Total Protein Albumin Globulin Albumin/Globulin Ratio TSH Current Home Med List Medication Instructions Recorded Confirmed Type Lisinopril 20 mg PO DAILY 09/28/17 12/18/17 History Chlordiazepoxide [Librium] 25 mg PO TID PRN PRN #30 capsule 10/02/17 12/18/17 Rx Sertraline HCl [Zoloft] 50 mg PO DAILY 11/07/17 12/18/17 History Folic Acid 1 mg PO DAILY@0800 #30 tab 11/09/17 12/18/17 Rx Multivitamins,Ther W-Minerals 1 tab PO DAILYCM #30 tab 11/09/17 12/18/17 Rx [Multivitamin With Minerals] Thiamine Hydrochloride [Vitamin B1] 100 mg PO DAILYCM #30 tab 11/09/17 12/18/17 Rx lipase/pancrease/amylase 6,000 units PO TIDCM 12/17/17 12/18/17 History [Pancrelipase (5000-17,000-27,000)] Metoprolol Tartrate 25 mg PO BID 12/18/17 12/18/17 History Current Medications Generic Name Dose Route Start Last Admin Trade Name Freq PRN Reason Stop Dose Admin Acetaminophen 650 mg 12/18/17 08:03 12/18/17 08:23 Tylenol PO 650 mg Q4H PRN PRN Administration PAIN Buspirone HCl 5 mg 12/18/17 14:00 12/19/17 06:10 Buspar PO 5 mg TID DOV Administration Enoxaparin Sodium 40 mg 12/18/17 10:00 12/19/17 10:03 Lovenox SC 40 mg DAILY@1000 DOV Administration Magnesium Sulfate 4 gm in 100 mls @ 25 mls/hr 12/19/17 11:00 12/19/17 11:34 4 Gm/100 Ml IV 12/19/17 14:59 25 mls/hr X1 ONE Administration Folic Acid 1 mg/ Sodium 50.2 mls @ 200 mls/hr 12/19/17 10:39 12/19/17 11:27 Chloride IV 200 mls/hr DAILY DOV Administration Loperamide HCl 2 mg 12/18/17 20:00 Imodium PO Q4H PRN PRN Diarrhea Lorazepam 1 mg 12/18/17 10:21 Ativan IV Q4H PRN PRN Seizure Magnesium Hydroxide 30 ml 12/18/17 01:05 Milk Of Magnesia PO DAILY PRN PRN Constipation Magnesium Oxide 400 mg 12/19/17 17:00 Mag-Ox 400 PO BIDCM [facility] Metoprolol Tartrate 25 mg 12/18/17 22:00 12/19/17 10:08 Lopressor (Beta Balta) PO 25 mg BID [facility] Administration Multivitamins/Minerals 1 tablet 12/19/17 08:00 12/19/17 10:03 Multivitamin With Minerals PO 1 tablet DAILYCM [facility] Administration Nicotine 21 mg 12/19/17 12:09 Nicoderm Cq (Pbkc) TRANSDERM. DAILY [facility] Nutritional Formula (Lactose Free) 120 ml 12/18/17 14:00 12/19/17 10:08 Ensure Clear PO 120 ml 4X/DAY DOV Administration Pancrelipase 1 each 12/18/17 12:00 12/19/17 11:[address] 6,000 Units Capsule PO 1 each TIDCM [facility] Administration Pantoprazole Sodium 20 mg 12/19/17 22:00 Protonix PO BID DOV Sertraline HCl 100 mg 12/20/17 10:00 Zoloft PO DAILY DOV Sodium Chloride 5 - 30 ml 12/18/17 01:49 12/19/17 11:26 IV 10 ml UD PRN Administration SALINE FLUSH ct head normal by report Assessment/Plan sz due to etoh withdrawal vs syncopal sz avoid withdrawal avoid sleep deprivation and starvation state agree with outpt psychiatric followup no driving for 3 months
--- NOTE | 2017-12-19 14:23 | EEG ---
- Electroencephalogram Date of service 12/19/17 This is an 18 channel electroencephalogram performed on this 37-year-old female with a history of seizure associated with electrolyte abnormalities and sleep deprivation as well as tongue biting. She is now normal. 18 channel echoencephalogram was performed utilizing EKG reference leads, photic stimulation, and hyperventilation. Background activity is 8-12 Hz symmetrically in the posterior leads which attenuates with eye opening. Hyperventilation is performed for 3 minutes with good effort with no lateralizing or epileptiform changes. The post hyperventilatory phase is unremarkable. The patient remained awake throughout the recording. There are no lateralizing or epileptiform changes. EKG is normal sinus rhythm throughout the recording and photic stimulation generates a normal driving response symmetrically in the posterior leads. Impression: Normal awake electroencephalogram
[2017-12-19] MEDS: Magnesium Oxide 400 MG Tablet PO (17:55)
[2017-12-19] MEDS: Pantoprazole Sodium 20 MG Tablet PO (21:58)
[2017-12-20 04:00] VITALS: BP 154/93; PULSE 76; RESP 16; TEMP 36.8; O2SAT 97
[2017-12-20 05:47] LABS: Absolute Lymphocyte Count 1.16 X10^3/ul (0.83-4.51); Absolute Neutrophil Count 1.8 X10^3/uL (2.0-7.7); Basophil# 0.01 X10^3/uL; Basophil% 0.3 % (0-1); Eosinophil# 0.12 X10^3/uL; Eosinophils% 3.5 % (0-5); Hemoglobin 8.1 g/dl (12.0-15.0); Lymphocyte # 1.16 X10^3/ul (4.0); Lymphocyte % 33.8 % (19-41); Mean Corp Hgb Conc 32.4 g/gl (32-36); Mean Corpuscular Hgb 32.7 pg (27.0-32.0); Mean Corpuscular Volume 100.8 fL (81-99); Mean Platelet Vol. 10.4 fl (6.2-12.0); Monocyte# 0.34 X10^3/uL; Monocyte% 9.9 % (0-10); Neutrophil # 1.78 X10^3/uL (2.7-7.7); Neutrophil % 51.9 % (47-70); Platelet Count 84 K/mm3 (150-450); RBC Distribution Width CV 15.2 % (11.6-14.6); RBC Distribution Width SD 52.2 fl (35.1-43.9); Red Blood Count 2.48 M/mm3 (4.2-5.4); White Blood Count 3.4 K/mm3 (4.4-11.0)
[2017-12-20] MEDS: busPIRone 5 MG Tablet PO (05:51)
[2017-12-20 06:21] LABS: POSITIVE COUNT NO; POSITIVE DIFFERENTIAL NO; POSITIVE MORPHOLOGY NO
[2017-12-20 06:28] LABS: Anion Gap 10 (5-15); BUN 4 mg/dL (7-18); BUN/Creat Ratio 7.5 RATIO (10-20); Calcium,Total 9.4 mg/dL (8.5-10.1); Chloride 103 mmol/L (98-107); Creatinine, Serum 0.53 mg/dL (0.55-1.02); EST Glomerular Filtration Rate 135 mL/min (>60); Est Glom Filt Rate - Afr Amer 164 mL/min (>60); Estimated Creatinine Clearance 111.36 ml/min; Glucose 86 mg/dL (74-106); Magnesium 1.7 mg/dL (1.6-2.6); Potassium 3.1 mmol/L (3.5-5.1); Sodium Level 139 mmol/L (136-145)
[2017-12-20 08:32] VITALS: BP 164/105; PULSE 92; RESP 18; TEMP 36.7; O2SAT 99
[2017-12-20] MEDS: Magnesium Oxide 400 MG Tablet PO (08:34)
[2017-12-20 08:35] VITALS: BP 164/105; PULSE 92
[2017-12-20] MEDS: LIPASE/PROTEASE/AMYLASE 1 EACH CAPSULE.DR 1 CAP PO (08:35)
[2017-12-20] MEDS: Metoprolol Tartrate 25 MG Tablet PO (08:35)
[2017-12-20] MEDS: Multivitamins,Ther W-Minerals Tablet 1 TABLET PO (08:35)
[2017-12-20] MEDS: Sertraline 100 MG Tablet PO (08:37)
[2017-12-20] MEDS: Enoxaparin 40 MG/0.4 ML Syringe SC (08:37)
[2017-12-20] MEDS: Pantoprazole Sodium 20 MG Tablet PO (08:38)
[2017-12-20 08:51] VITALS: BP 164/105; PULSE 92; RESP 18; TEMP 36.7
[2017-12-20 09:10] LABS: Haptoglobin 247 mg/dL (34-200)
--- NOTE | 2017-12-20 11:02 | PCM.DC ---
You will use the following diet at home:: Other - Low-fat diet, 3 meals daily and snacks Your food should be the consistency of: Regular Your liquids should be the consistency of: Regular/Thin Discharge Activity: May Not Drive - you may not drive for 3 months and you must be seizure free Call your doctor if you observe: Fever of 101 or Higher, Dizziness, Fainting spells, - - recurrent nausea and vomiting, severe abdominal pain, seizures Additional Instructions: 1. I am giving you another prescription for Folic Acid. I want you to take it twice a day for the next month and then go back to once a day. 2. You blood pressure is too high. I have increased the Lisinopril to 40 mg daily and change the Metoprolol to the XL formulation and you will take it once a day. 3. I am giving you a prescription for Buspar to help control your anxiety and you will take it 3 times a day....it does not work if you take it only occasionally. I am also increasing the Zoloft to 100 mg daily. 4. I do not think the seizure was due to alcohol withdrawal. I suspect it was due to dehyration and not eating......when the blood sugar drops from not eating you can have a seizure. 5. Good luck. You look much better than the last time I saw you in the hospital. It sounds as though you are making some good decisions to take care of yourself.......before you can do a good job taking care of the children you have to take care of yourself so you can be present for your children. Pending Tests on Discharge: none Allergies/Adverse Reactions: Allergies No Known Allergies Allergy (Verified 11/07/17 18:44) Medications to take at Discharge Multivitamins,Ther W-Minerals [Multivitamin With Minerals] 1 tab PO DAILYCM #30 tab 11/09/17 Thiamine Hydrochloride [Vitamin B1] 100 mg PO DAILYCM #30 tab 11/09/17 Metoprolol Tartrate 25 mg PO BID 12/18/17 Folic Acid 1 mg PO BID #60 tab 12/20/17 Lisinopril [Zestril] 40 mg PO DAILY #30 tab 12/20/17 Loperamide [Imodium] 2 mg PO Q4H PRN PRN capsule 12/20/17 Magnesium Oxide [Mag-Ox 400] 400 mg PO BIDCM #30 tab 12/20/17 Metoprolol(XL)Succ [Toprol Xl (Beta Balta)] 50 mg PO DAILY #30 tab 12/20/17 Nicotine [Nicoderm Cq] 21 mg TRANSDERM. DAILY #28 patch 12/20/17 Pantoprazole Sodium [Protonix] 40 mg PO DAILY #30 tab 12/20/17 Sertraline HCl [Zoloft] 100 mg PO DAILY #30 tab 12/20/17 busPIRone [Buspar] 5 mg PO TID #90 tab 12/20/17 lipase/pancrease/amylase [Pancrelipase (5000-17,000-27,000)] 6,000 units PO TIDCM #90 cap 12/20/17 The following prescriptions were given: Lisinopril [Zestril] 40 mg PO DAILY #30 tab Metoprolol(XL)Succ [Toprol Xl (Beta Balta)] 50 mg PO DAILY #30 tab Nicotine [Nicoderm Cq] 21 mg TRANSDERM. DAILY #28 patch Pantoprazole Sodium [Protonix] 40 mg PO DAILY #30 tab Sertraline HCl [Zoloft] 100 mg PO DAILY #30 tab Folic Acid 1 mg PO BID #60 tab Magnesium Oxide [Mag-Ox 400] 400 mg PO BIDCM #30 tab busPIRone [Buspar] 5 mg PO TID #90 tab lipase/pancrease/amylase [Pancrelipase (5000-17,000-27,000)] 6,000 units PO TIDCM #90 cap Primary Care Physician: Care Physician,No Primary [NON-STAFF] - Please Follow Up With: Jun Mccain MD When: within the next 2-3 weeks......OK to see Steve Andino NP Please Follow Up With: Andrey Bansal MD When: 2 weeks Proposed Discharge Date: 12/20/17
--- NOTE | 2017-12-20 11:27 | DS.PCM_ITS ---
Discharge Date and Diagnosis Date of Admission: 12/17/17 Date of Discharge: 12/20/17 - Primary Discharge Diagnosis Active and Suspected Problems Seizure - likely not due to alcohol withdrawal but due to dehydration and not eating for a few days Folate deficiency (Acute) Pancytopenia (Acute) due to folate deficiency Hypomagnesemia (Acute) Dehydration (Acute) Acute kidney injury (Acute) often resolved, secondary to dehydration Acute pancreatitis-ruled out - Secondary Discharge Diagnosis Chronic Problems History of alcoholism (Chronic) Anxiety and depression (Chronic) Chronic pancreatitis (Chronic) Essential hypertension (Chronic) Hospital Course and Treatment Imaging Results: Clinical Impression(s) from Imaging Studies Brain CT 12/17/17 22:24 IMPRESSION: Normal unenhanced CT scan of the brain. Electronically Signed: Dieudonne Gonzalez MD at 23:11 EDT , Service support , Chest X-Ray 12/17/17 22:30 IMPRESSION: Normal x-ray examination of the chest. Electronically Signed: Dieudonne Gonzalez MD at 22:44 EDT , Service support , Laboratory Tests 12/17/17 12/17/17 12/17/17 21:51 22:10 22:10 WBC 4.4 RBC 2.91 L Hgb 9.4 L Hct 28.5 L MCV 97.9 MCH 32.3 H MCHC 33.0 RDW 15.8 H RDW Differential 56.1 H Plt Count 81 L MPV 10.4 Immature Gran % (Auto) 0.500 Neut % (Auto) 72.6 H Lymph % (Auto) 19.7 Boyle % (Auto) 5.9 Eos % (Auto) 1.1 Baso % (Auto) 0.2 Absolute Neuts (auto) 3.2 Absolute Lymphs (auto) 0.86 Total Counted Not Reportable Immature Plt Fraction Retic Count Immature Retic Fraction Retic Hgb Equivalent Haptoglobin Sodium Potassium Chloride Carbon Dioxide Anion Gap BUN Creatinine Estim Creat Clear Calc Est GFR (MDRD) Af Amer Est GFR (MDRD) Non-Af BUN/Creatinine Ratio Glucose Calcium Phosphorus Magnesium Iron TIBC Iron Saturation Ferritin Total Bilirubin Direct Bilirubin AST ALT Alkaline Phosphatase Lactate Dehydrogenase Troponin I Total Protein Albumin Globulin Albumin/Globulin Ratio Lipase TSH Serum , Qual NEGATIVE POC Glucose 127 H 12/17/17 12/17/17 12/17/17 22:10 22:10 22:10 WBC RBC Hgb Hct MCV MCH MCHC RDW RDW Differential Plt Count MPV Immature Gran % (Auto) Neut % (Auto) Lymph % (Auto) Boyle % (Auto) Eos % (Auto) Baso % (Auto) Absolute Neuts (auto) Absolute Lymphs (auto) Total Counted Immature Plt Fraction Retic Count Immature Retic Fraction Retic Hgb Equivalent Haptoglobin Sodium 133 L Potassium 3.1 L Chloride 92 L Carbon Dioxide 30.0 Anion Gap 11 BUN 11 Creatinine 1.35 H Estim Creat Clear Calc 46.10 Est GFR (MDRD) Af Amer 56 L Est GFR (MDRD) Non-Af 46 L BUN/Creatinine Ratio 8.1 L Glucose 107 H Calcium 9.4 Phosphorus Magnesium Iron TIBC Iron Saturation Ferritin Total Bilirubin 1.10 H Direct Bilirubin 0.30 AST 88 H ALT 37 Alkaline Phosphatase 100 Lactate Dehydrogenase Troponin I < 0.02 Total Protein 7.1 Albumin 3.5 Globulin 3.6 Albumin/Globulin Ratio Lipase 674 H TSH Serum , Qual POC Glucose 12/18/17 12/18/17 12/18/17 06:07 06:07 06:07 WBC 3.7 L RBC 2.52 L Hgb 8.2 L Hct 25.2 L MCV 100.0 H MCH 32.5 H MCHC 32.5 RDW 15.0 H RDW Differential 52.4 H Plt Count 77 L MPV 10.9 Immature Gran % (Auto) Neut % (Auto) Lymph % (Auto) Boyle % (Auto) Eos % (Auto) Baso % (Auto) Absolute Neuts (auto) Absolute Lymphs (auto) Total Counted Immature Plt Fraction Retic Count Immature Retic Fraction Retic Hgb Equivalent Haptoglobin Sodium 136 Potassium 2.9 L Chloride 96 L Carbon Dioxide 31.0 Anion Gap 9 BUN 10 Creatinine 1.24 H Estim Creat Clear Calc 47.60 Est GFR (MDRD) Af Amer 62 Est GFR (MDRD) Non-Af 51 L BUN/Creatinine Ratio 8.1 L Glucose 95 Calcium 9.0 Phosphorus 3.5 Magnesium 1.0 L Iron TIBC Iron Saturation Ferritin Total Bilirubin Direct Bilirubin AST ALT Alkaline Phosphatase Lactate Dehydrogenase Troponin I Total Protein Albumin Globulin Albumin/Globulin Ratio Lipase 406 H TSH Serum , Qual POC Glucose 12/18/17 12/19/17 12/19/17 06:07 06:50 06:50 WBC 3.7 L RBC 2.36 L Hgb 7.8 L Hct 23.9 L MCV 101.3 H MCH 33.1 H MCHC 32.6 RDW 15.0 H RDW Differential 52.8 H Plt Count 70 L MPV 9.8 Immature Gran % (Auto) Neut % (Auto) Lymph % (Auto) Boyle % (Auto) Eos % (Auto) Baso % (Auto) Absolute Neuts (auto) Absolute Lymphs (auto) Total Counted Immature Plt Fraction Retic Count Immature Retic Fraction Retic Hgb Equivalent Haptoglobin Sodium 139 Potassium 3.5 Chloride 105 Carbon Dioxide 26.0 Anion Gap 8 BUN 5 L Creatinine 0.61 Estim Creat Clear Calc 96.76 Est GFR (MDRD) Af Amer 141 Est GFR (MDRD) Non-Af 116 BUN/Creatinine Ratio 8.2 L Glucose 87 Calcium 9.6 Phosphorus 2.8 Magnesium 0.7 L* Iron TIBC Iron Saturation Ferritin Total Bilirubin 0.50 Direct Bilirubin AST 83 H ALT 38 Alkaline Phosphatase 74 Lactate Dehydrogenase Troponin I Total Protein 5.9 L Albumin 2.8 L Globulin 3.1 Albumin/Globulin Ratio 0.9 Lipase TSH 2.23 Serum , Qual POC Glucose 12/19/17 12/19/17 12/19/17 06:50 11:00 11:00 WBC RBC Hgb Hct MCV MCH MCHC RDW RDW Differential Plt Count MPV Immature Gran % (Auto) Neut % (Auto) Lymph % (Auto) Boyle % (Auto) Eos % (Auto) Baso % (Auto) Absolute Neuts (auto) Absolute Lymphs (auto) Total Counted Immature Plt Fraction 7.4 Retic Count 3.07 H Immature Retic Fraction 15.50 Retic Hgb Equivalent 30.4 Haptoglobin 247 H Sodium Potassium Chloride Carbon Dioxide Anion Gap BUN Creatinine Estim Creat Clear Calc Est GFR (MDRD) Af Amer Est GFR (MDRD) Non-Af BUN/Creatinine Ratio Glucose Calcium Phosphorus Magnesium Iron 40 L TIBC 226 L Iron Saturation 17.7 Ferritin 1489 H Total Bilirubin Direct Bilirubin AST ALT Alkaline Phosphatase Lactate Dehydrogenase 217 Troponin I Total Protein Albumin Globulin Albumin/Globulin Ratio Lipase TSH Serum , Qual POC Glucose 12/20/17 12/20/17 05:10 05:10 WBC 3.4 L RBC 2.48 L Hgb 8.1 L Hct 25.0 L MCV 100.8 H MCH 32.7 H MCHC 32.4 RDW 15.2 H RDW Differential 52.2 H Plt Count 84 L MPV 10.4 Immature Gran % (Auto) 0.600 Neut % (Auto) 51.9 Lymph % (Auto) 33.8 Boyle % (Auto) 9.9 Eos % (Auto) 3.5 Baso % (Auto) 0.3 Absolute Neuts (auto) 1.8 L Absolute Lymphs (auto) 1.16 Total Counted Not Reportable Immature Plt Fraction Retic Count Immature Retic Fraction Retic Hgb Equivalent Haptoglobin Sodium 139 Potassium 3.1 L Chloride 103 Carbon Dioxide 26.0 Anion Gap 10 BUN 4 L Creatinine 0.53 L Estim Creat Clear Calc 111.36 Est GFR (MDRD) Af Amer 164 Est GFR (MDRD) Non-Af 135 BUN/Creatinine Ratio 7.5 L Glucose 86 Calcium 9.4 Phosphorus Magnesium 1.7 Iron TIBC Iron Saturation Ferritin Total Bilirubin Direct Bilirubin AST ALT Alkaline Phosphatase Lactate Dehydrogenase Troponin I Total Protein Albumin Globulin Albumin/Globulin Ratio Lipase TSH Serum , Qual POC Glucose Dr. Andrey Bansal-neurology Operations: None Procedures: Electroencephalogram - No epileptiform discharge Summary of Care Provided: Patient is a 37-year-old female with a past medical history of alcohol abuse, pancreatitis and hypertension who was brought to the emergency department at [facility] on 12/17/2017 after having a reported tonic clonic seizure at home. Family stated she was shaking and unresponsive. She was postictal afterwards. She has a history of seizure in the past but had eclampsia at the time. History is positive for alcohol abuse and she stated her last drink was 1 week prior to coming to the emergency room. She binge drinks and this started when she and her last February. She was admitted to [facility] from 09/28/17-10/02 for acute alcohol withdrawal/pancreatitis and readmitted 10/07/17 for hyponatremia and hypokalemia. She refused treatment for chronic alcohol abuse initially but her sister came to the hospital and spoke to her and she was agreeable to outpt treatment only. She has 5 children at home. She got last February and then she started binge drinking to help with anxiety. She was started on zoloft at the last admission and went home with a Librium taper but has been using it as needed in the AM for increased stress. Recently the father of 2 of her children has petitioned to have visitation. She tells me that she fell off the wagon for a few days but has not had a drink in 7-10 days. Vital signs in the emergency room at presentation were temperature 98.4, pulse rate 127, blood pressure 95/68, respiratory rate 18 and pulse ox ranged from 94-97% on room air. CBC showed pancytopenia with white blood cell count of 3.7, hemoglobin of 8.2 and platelets of 77,000. Potassium was low at 3.1 and the sodium was 133. BUN was 10 with a creatinine of 1.35. AST was elevated at 88 with an ALT of 37 consistent with alcoholic hepatitis. Lipase was 674 and is chronically elevated now. CT brain was normal. she was admitted to the hospital for acute recurrent pancreatitis and seizure. EEG was negative for epileptiform activity. She was seen in consultation by Dr. Bansal and he felt it was safe to discharge home on no anti-epileptic drugs but, no driving for 3 months and she will follow up in the neurology office. She is folate deficient and this is the likely etiology of the pancytopenia. She was given IV folic acid in the hospital and she was discharged on folic acid 1 mg BID for 1 month and then she can decrease to 1 mg daily. She is going to follow up at [facility] as an OP and will also have parenting classes there in addition to alcohol counselling. While in the hospital she was started on Buspar 5 mg TID for anxiety and this was helpful to her. she was given a RX at [place]. She was also given a RX for creon., A NicoDerm patch, lisinopril 40 mg daily, metoprolol XL 50 mg daily, Protonix 40 mg daily and magnesium oxide. Sertraline was increased to 100 mg p.o. daily. She is going to follow-up with Dr. Mccain for primary care and with Dr. Bansal in 2 weeks. This note was generated with [email or web address] dictation software. It may contain incorrect words, spelling, and punctuation that were not noted in checking the note before signing. Discharge Activity: May Not Drive - you may not drive for 3 months and you must be seizure free Call your doctor if you observe: Fever of 101 or Higher, Dizziness, Fainting spells, - - recurrent nausea and vomiting, severe abdominal pain, seizures Home Medications: Medications to take at Discharge Multivitamins,Ther W-Minerals [Multivitamin With Minerals] 1 tab PO DAILYCM #30 tab 11/09/17 Thiamine Hydrochloride [Vitamin B1] 100 mg PO DAILYCM #30 tab 11/09/17 Metoprolol Tartrate 25 mg PO BID 12/18/17 Folic Acid 1 mg PO BID #60 tab 12/20/17 Lisinopril [Zestril] 40 mg PO DAILY #30 tab 12/20/17 Loperamide [Imodium] 2 mg PO Q4H PRN PRN capsule 12/20/17 Magnesium Oxide [Mag-Ox 400] 400 mg PO BIDCM #30 tab 12/20/17 Metoprolol(XL)Succ [Toprol Xl (Beta Balta)] 50 mg PO DAILY #30 tab 12/20/17 Nicotine [Nicoderm Cq] 21 mg TRANSDERM. DAILY #28 patch 12/20/17 Pantoprazole Sodium [Protonix] 40 mg PO DAILY #30 tab 12/20/17 Sertraline HCl [Zoloft] 100 mg PO DAILY #30 tab 12/20/17 busPIRone [Buspar] 5 mg PO TID #90 tab 12/20/17 lipase/pancrease/amylase [Pancrelipase (5000-17,000-27,000)] 6,000 units PO TIDCM #90 cap 12/20/17 Following Prescrptions Were Given to Patient: Lisinopril [Zestril] 40 mg PO DAILY #30 tab Metoprolol(XL)Succ [Toprol Xl (Beta Balta)] 50 mg PO DAILY #30 tab Nicotine [Nicoderm Cq] 21 mg TRANSDERM. DAILY #28 patch Pantoprazole Sodium [Protonix] 40 mg PO DAILY #30 tab Sertraline HCl [Zoloft] 100 mg PO DAILY #30 tab Folic Acid 1 mg PO BID #60 tab Magnesium Oxide [Mag-Ox 400] 400 mg PO BIDCM #30 tab busPIRone [Buspar] 5 mg PO TID #90 tab lipase/pancrease/amylase [Pancrelipase (5000-17,000-27,000)] 6,000 units PO TIDCM #90 cap Primary Care Physician: Care Physician,No Primary [NON-STAFF] - Please Follow Up With: Jun Mccain MD When: within the next 2-3 weeks......OK to see Steve Andino NP Please Follow Up With: Andrey Bansal MD When: 2 weeks Disposition: Home Minutes spent on discharge:: 30 Patient Condition:: Good Medical Necessity - Tobacco Use Smoking Status: Current every day smoker Meaningful Use Info Meaningful Use Diagnoses (Choose all that apply): None applicable Code Visit Inpatient E&M: 01739 Disch Hosp
[2017-12-20 11:56] VITALS: BP 126/87; PULSE 82; RESP 18; TEMP 36.7; O2SAT 99
== END 2017-12-20 12:16 | disposition home or self-care (01) | DRG 296 ==
LOC: ED 23:36 → MS2 12-18 00:28
PROVIDERS: Admitting Provider Family Medicine; Emergency Provider Emergency Medicine; Family Provider Internal Medicine; PCP Internal Medicine; Visit Provider Internal Medicine
DX: E86.0 Dehydration (principal); N17.9 Acute kidney failure, unspecified; R56.9 Unspecified convulsions; I10 Essential (primary) hypertension; F17.200 Nicotine dependence, unspecified, uncomplicated; E53.8 Deficiency of other specified B group vitamins; F32.9 Major depressive disorder, single episode, unspecified; F41.9 Anxiety disorder, unspecified; E83.42 Hypomagnesemia; F10.21 Alcohol dependence, in remission; E87.6 Hypokalemia; Y90.9 Presence of alcohol in blood, level not specified
CPT/HCPCS: 36415; 70450; 71045; 80048; 80053; 80076; 82728; 82962; 83010; 83540; 83550; 83615; 83690; 83735; 84100; 84443; 84484; 84703; 85025; 85027; 85045; 93005; 95819; 97802; 99285; 99406; J7030; A4216; J3490

== ENCOUNTER 2018-01-15 12:07 | Emergency (ER) | payer MEDICAID, SELFPAY ==
[2018-01-15 12:08] VITALS: BP 103/85; PULSE 121; RESP 14; TEMP 36.8; O2SAT 93; BMI 23.4
[2018-01-15 12:56] LABS: Hemoglobin 14.1 g/dl (12.0-15.0); Mean Corp Hgb Conc 34.4 g/gl (32-36); Mean Corpuscular Hgb 32.5 pg (27.0-32.0); Mean Corpuscular Volume 94.5 fL (81-99); Mean Platelet Vol. 11.4 fl (6.2-12.0); RBC Distribution Width CV 15.3 % (11.6-14.6); Red Blood Count 4.34 M/mm3 (4.2-5.4); White Blood Count 5.7 K/mm3 (4.4-11.0)
[2018-01-15 13:12] LABS: Anion Gap 10 (5-15); BUN 4 mg/dL (7-18); BUN/Creat Ratio 5.2 RATIO (10-20); Calcium,Total 9.5 mg/dL (8.5-10.1); Chloride 90 mmol/L (98-107); Creatinine, Serum 0.77 mg/dL (0.55-1.02); EST Glomerular Filtration Rate 88 mL/min (>60); Est Glom Filt Rate - Afr Amer 106 mL/min (>60); Estimated Creatinine Clearance 76.03 ml/min; Glucose 124 mg/dL (74-106); Potassium 2.3 mmol/L (3.5-5.1); Sodium Level 134 mmol/L (136-145)
[2018-01-15 13:16] LABS: Platelet Count 33 K/mm3 (150-450); Scan Indicated on CBC? Y/N YES- FLAGS NOTED
[2018-01-15 13:17] LABS: Amphetamine Urine VISTA NEGATIVE (<1000 ng/mL); Barbiturate Urine VISTA NEGATIVE (< 200 ng/mL); Benzodiazepine Urine VISTA POSITIVE (< 200 ng/mL); Cocaine Urine VISTA NEGATIVE (< 300 ng/mL); Ecstacy Urine VISTA NEGATIVE (< 500 ng/mL); Methadone Urine VISTA NEGATIVE (< 300 ng/mL); PCP Urine VISTA NEGATIVE (< 25 ng/mL); THC Urine VISTA NEGATIVE (< 50 ng/mL); Vista UDS pH Range 7
[2018-01-15 13:17] LABS: Differential Comment SCANNED
--- NOTE | 2018-01-15 13:17 | ED.RN ---
notified platelets 33
[2018-01-15] MEDS: levETIRAcetam IV 1,000 MG/100 ML BAG 400 MG IV (14:28)
[2018-01-15 14:29] VITALS: BP 112/98; PULSE 109; RESP 12; O2SAT 95
--- NOTE | 2018-01-15 15:12 | ED.DCSUM_ITS ---
- ER Visit Summary Date of Service: 01/15/18 Chief Complaint: Seizure History of Present Illness: The patient is a 37 F who has history of hyponatremia, hypomagnesemia and hypokalemia secondary to alcohol use resents with witnessed generalized tonic-clonic seizure. She states she has not had any alcoholic beverage since last admission, beginning of December. She does complain of slight headache. She is amnestic. She admits to biting her lip and tongue. There was no incontinence of urine or stool. She denies any double vision, blurred vision loss of vision. She denies drug use. She is a smoker. She denies any cardiac respiratory symptoms. She denied vomiting. She denies dysuria, frequency, urgency or hematuria. She denies polyuria, polydipsia or polyphagia. She denies urticaria or angioedema. She denies any problems with bleeding or bruising easily. Her prior records were reviewed. She was seen by Dr. Andrey Bansal last admission. The thought was that she had a seizure secondary to dehydration. Physical Examination: Vital signs are unremarkable except for heart rate of 121. Head is atraumatic normocephalic. Pupils are equal round reactive. Extraocular muscles are intact. TMs are pearly white with landmarks noted. Nares patent with no drainage. Posterior pharynx without erythema or exudate. Uvula is midline. There is no dysphonia or dysphasia. That the right side of her tongue and bit the inside of her lower lip. Trachea is midline. There is no stridor with auscultation of the neck. Heart is regular without murmur, gallop or rub. S1 and S2 are normal. Lungs are clear to auscultation with good movement of air bilaterally. Abdomen is soft and nontender. There is no guarding or peritoneal findings. There is no palpable pulsatile mass. There is no abdominal bruit. Blas sign is negative. Negative Rovsing sign. There is no evidence of inguinal or umbilical hernia. Patient is alert and oriented ? 3. Motor is 5 over 5. Sensory is intact. DTRs are symmetric with no clonus or Babinski sign. Cranial 2 through 12 are intact. Cerebellar testing is normal. Test Results: CBC is unremarkable. BMP is unremarkable. Tox screen is positive benzodiazepine. Emergency Department Course and Treatment: Since she has history of electrolyte abnormality and states she has not had anything to drink in 1 month electro panel was obtained. Tox screen was obtained as well to evaluate for any sympathomimetic which may result in seizure. Case was discussed with neurology. The recommended 1 g of Keppra IV piggyback and prescription for Keppra 500 mg twice daily. First dose this evening. Call Dr. Andrey Bansal tomorrow for close follow-up in the next week Treatment Plan: Prescription for Keppra and outpatient follow-up i.e. MRI, EEG and no driving until cleared by neurology Disposition: Discharged to home Impression: Generalized tonic-clonic seizure This note was generated with [email or web address] software. It may contain incorrect words, spelling, and punctuation that were not noted in review of the chart prior to signing ED Disposition - Plan for ED Patient: Disposition: Home or Assisted Living Chief Complaint: Seizure Instructions: ED Seizure New Onset Unk Cause Prescriptions: levETIRAcetam tablet [Keppra tablet] 500 mg PO BID #60 tab Referrals: Care Physician,No Primary [Primary Care Provider] - Andrey Bansal MD [STAFF PHYSICIAN] - As soon as possible Additional Instructions: No driving until you are cleared by Dr. Andrey Bansal
[2018-01-16 14:39] LABS: Pathologist Review Reviewed
== END 2018-01-15 15:39 | disposition home or self-care (01) ==
PROVIDERS: Emergency Provider Emergency Medicine
DX: G40.409 Other generalized epilepsy and epileptic syndromes, not intractable, without status epilepticus (principal); F17.200 Nicotine dependence, unspecified, uncomplicated; R19.7 Diarrhea, unspecified; I50.9 Heart failure, unspecified
CPT/HCPCS: 80048; 80307; 85027; 96365; 99285; A4216

== ENCOUNTER 2018-02-06 18:36 | Inpatient (IN) | payer MEDICAID, SELFPAY ==
[2018-02-06] VITALS (8 sets, daily range): BP systolic 154–198; BP diastolic 104–130; PULSE 76–114; RESP 12–20; TEMP 36.6–36.7; O2SAT 95–98; BMI 20.9; BMI 22.2; BMI 22.3
--- NOTE | 2018-02-06 19:01 | CT_ITS ---
CT Abdomen And Pelvis W/ Contrast INDICATION: MID ABDOMEN PAIN,NAUSEA AND VOMITING,ELEVATED BPHX:HTN,ALCOHOLISM,PANCREATITISSURGERY:,CHOLECYSTECTOMY,TUBAL COMPARISON: None TECHNIQUE: Axial CT imaging of the abdomen and pelvis with IV contrast. Coronal and sagittal reformatted images. 100 mL of Isovue-300 were used. FINDINGS: The visualized lung bases are clear. The heart size is normal. The liver is diffusely low in density compatible with fatty infiltration. The gallbladder is surgically absent and there is mild pneumobilia. The spleen is normal in size. A calcified granuloma is noted. The kidneys enhance contrast symmetrically bilaterally and are without evidence of hydronephrosis. Pancreas appears grossly unremarkable. Bowel loops are nondistended. Appendix is unremarkable. There is no evidence of formed stool, suggestive of diarrhea. Urinary bladder is nondistended. Osseous structures are grossly unremarkable. CT/Abdomen/Pelvis W IV Cont ONLY IMPRESSION: Marked fatty infiltration of the liver compatible with history. No CT evidence of acute pancreatitis at this time. No evidence of formed stool, suggestive of diarrhea. at 2042 Reported and signed by: Ariane Cancino MD Electronically Signed: Ariane Cancino MD at 20:41 EDT Tel , Service support ,
--- NOTE | 2018-02-06 19:05 | ED.DCSUM_ITS ---
- ER Visit Summary Date of Service: 02/06/18 Chief Complaint: Nausea and vomiting History of Present Illness: The patient is a 37 F with nausea and vomiting for the past 2 days. Patient also has upper abdominal pain. It is severe and feels like her prior episode of pancreatitis. This was previously incited by heavy alcohol use. The patient has not been drinking. She has had difficulty taking her medications because of the intractable vomiting. Denies blood. Denies fever. Denies skin changes. She also reports a remote history of cholecystectomy with common bile duct injury. Physical Examination: Hypertensive and tachycardic. Otherwise afebrile. Appears anxious. Skin normal. Heart tachycardic but regular. Lungs clear. Abdomen tender in the epigastric region. No guarding or rebound. Test Results: Labs, urine, and CT pending. Emergency Department Course and Treatment: She was treated with fluids, morphine , and Zofran while awaiting results. Platelets 48, chronic issue. Sodium 131 and potassium 2.3. Glucose 143. Total bilirubin 2.3. Alkaline phosphatase 164, ALT 117, AST 424, lipase 393. Urinalysis unremarkable. test negative. CT showed fatty liver and findings consistent with diarrhea. No other acute abnormalities. EKG was done and showed sinus rhythm at a rate of 83. Patient was treated with IV potassium. I contacted the hospitalist who will admit to the PCU. Treatment Plan: Above Disposition: Admission Impression: 1. Nausea, vomiting, diarrhea 2. Hypokalemia 3. Thrombocytopenia 4. Hepatitis This note was generated with [email or web address] dictation software. It may contain incorrect words, spelling, and punctuation that were not noted in review of the chart prior to signing ED Disposition - Plan for ED Patient: Chief Complaint: Nausea/Vomiting Referrals: Care Physician,No Primary [Primary Care Provider] -
[2018-02-06] MEDS: Ondansetron 4 MG/2 ML Vial IV ×2 (19:08→23:10)
[2018-02-06] MEDS: 0.9% Normal Saline 1,000 ML 1000 ML IV (19:08)
[2018-02-06] MEDS: Morphine 4 MG/ML Syringe IV (19:09)
[2018-02-06 19:29] LABS: Absolute Lymphocyte Count 0.77 X10^3/ul (0.83-4.51); Absolute Neutrophil Count 4.6 X10^3/uL (2.0-7.7); Hematocrit 43.3 % (37-47); Hemoglobin 14.9 g/dl (12.0-15.0); Lymphocyte # 0.77 X10^3/ul (4.0); Lymphocyte % 13.5 % (19-41); Mean Corp Hgb Conc 34.4 g/gl (32-36); Mean Corpuscular Hgb 32.1 pg (27.0-32.0); Mean Corpuscular Volume 93.3 fL (81-99); Mean Platelet Vol. 10.3 fl (6.2-12.0); Monocyte# 0.37 X10^3/uL; Monocyte% 6.5 % (0-10); Neutrophil # 4.56 X10^3/uL (2.7-7.7); RBC Distribution Width CV 14.9 % (11.6-14.6); RBC Distribution Width SD 50.8 fl (35.1-43.9); Red Blood Count 4.64 M/mm3 (4.2-5.4); White Blood Count 5.7 K/mm3 (4.4-11.0)
[2018-02-06 19:37] LABS: Differential Indicated SCAN CRITERIA MET; POSITIVE COUNT YES; POSITIVE DIFFERENTIAL NO; POSITIVE MORPHOLOGY NO; Platelet Count 48 K/mm3 (150-450)
--- NOTE | 2018-02-06 19:38 | NURSING ---
DR. FERNANDEZ MADE AWARE THAT PATIENT'S PLATLET COUNT IS 48.
[2018-02-06 19:48] LABS: Pregnancy, Serum, hCG Quali. NEGATIVE Negative (0-9 Nonpreg)
[2018-02-06 19:49] LABS: ALB/GLOB Ratio 0.9 RATIO (0.9-2.4); AST(SGOT) 424 U/L (15-37); Alanine Aminotransfer ALT/SGPT 117 U/L (13-56); Alkaline Phosphatase 164 U/L (45-117); Anion Gap 16 (5-15); BUN 8 mg/dL (7-18); BUN/Creat Ratio 9.4 RATIO (10-20); Calcium,Total 9.4 mg/dL (8.5-10.1); Chloride 85 mmol/L (98-107); Creatinine, Serum 0.85 mg/dL (0.55-1.02); EST Glomerular Filtration Rate 79 mL/min (>60); Est Glom Filt Rate - Afr Amer 95 mL/min (>60); Estimated Creatinine Clearance 61.72 ml/min; Globulin 4.6 g/dL (2.2-4.2); Glucose 143 mg/dL (74-106); Lipase 393 U/L (73-393); Potassium 2.3 mmol/L (3.5-5.1); Protein, Total 8.6 g/dL (6.4-8.2); Sodium Level 131 mmol/L (136-145)
--- NOTE | 2018-02-06 19:49 | ED.RN ---
[facility]OVE FROM LAB CALLED WITH CRITICAL POTASSIUM OF 2.3, DR. FERNANDEZ INFORMED OF SAME. DAWSON BOWEN RN, INFORMED OF SAME.
[2018-02-06 20:37] LABS: Bacteria 0 SEEN /hpf (None Seen); Mucous, Urine 0 SEEN /hpf (<or=2+); Red Blood Cells-Urine 0 SEEN /hpf (0-5)
[2018-02-06 20:51] LABS: Color, Urine Yellow (Yellow); Glucose, Dipstick Normal (Normal); Ketone-Dipstick 15 mg/dl (Negative); Leukocyte Esterase-Dipstick 25 /ul (Negative); Nitrite-Dipstick Negative (Negative); Occult Blood-Urine Negative /ul (Negative); Protein-Dipstick 30 mg/dl (Negative); Urine Bilirubin Dipstick Negative (Negative); Urine Clarity Clear (Clear); Urine Urobilinogen 4 mg/dl (Normal)
[2018-02-06 20:59] LABS: Squamous Epithelial Cells - UA 0-5 SEEN /hpf (5-10); White Blood Cells 0-5 SEEN /hpf (0-5)
[2018-02-06 20:59] LABS: Platelet Estimate MKD DEC (ADEQ)
--- NOTE | 2018-02-06 21:07 | EKG12_ITS ---
Test Reason : LOW POTASSIUM Blood Pressure : / mmHG Vent. Rate : 083 BPM Atrial Rate : 083 BPM P-R Int : 134 ms QRS Dur : 082 ms QT Int : 410 ms P-R-T Axes : 017 034 038 degrees QTc Int : 481 ms Normal sinus rhythm Prolonged QT Abnormal ECG Confirmed by BLANE ARTIS ([id number]), editor farm journal ESME CORREA ([id number] on 02/18/2018 5:34:14 PM Referred By: REBECCA Confirmed By:BLANE ARTIS
--- NOTE | 2018-02-06 21:14 | PCM.HP.STD ---
Problem List (1) Abnormal liver function test Status: Acute (2) Nausea & vomiting Status: Acute Qualifiers: Vomiting type: unspecified (3) Hyponatremia Status: Acute (4) Thrombocytopenia Status: Chronic (5) Folate deficiency Status: Chronic (6) Hypokalemia Status: Acute (7) Anxiety and depression Status: Chronic (8) Chronic pancreatitis Status: Chronic Qualifiers: Pancreatitis type: unspecified pancreatitis type Qualified Code(s): K86.1 - Other chronic pancreatitis (9) Essential hypertension Status: Chronic (10) History of alcoholism Status: Chronic History of Present Illness Date of Admission: 02/06/18 Chief Complaint: Intractable nausea, emesis. The patient is a 37 y/o F w/ PMHx: Seizure disorder, EtOH Abuse, Chronic Pancreatitis, Chronic Pancytopenia, HTN, Anxiety and Depression who presents to the [facility] ED on 02/06/18 with history of ongoing nausea, emesis, BL UQ abdominal discomfort with inability to maintain oral intake including her medications w/ recent discharge from [facility] on 12/20/17 following seizure activity felt secondary to severe dehydration, malnutrition coupled with EtOH withdrawal. She notes the abdominal discomfort is worse w/ emesis bouts and with palpation but moving without discomfort in the ED bed. She had noted initial concern that she had recurrent pancreatitis, acute on chronic. She does admit to recent increased stress. In the ED workup included T 98, heart rate 114, BP 154/104, respiratory rate 20, 97% room air, CBC with WBC 5.7, hemoglobin 14.9, platelet 48 (prior 33) without market shift, BMP with sodium 131, potassium 2.3, chloride 85, glucose 143, total bilirubin 2.3, AST/ALT 424/117, alk phos 164, lipase 393, serum negative, urinalysis not market appearing, CT abdomen and pelvis with marked fatty infiltration of the liver with no CT evidence of acute pancreatitis with no evidence of market stool. Past Medical History Past Medical History (Chronic Problems): Chronic Problems Thrombocytopenia (Chronic) History of alcoholism (Chronic) Anxiety and depression (Chronic) Chronic pancreatitis (Chronic) Folate deficiency (Chronic) Essential hypertension (Chronic) Allergies No Known Allergies Allergy (Verified 02/06/18 18:37) Home Medications: Ambulatory Orders Medication Instructions Recorded Multivitamins,Ther W-Minerals 1 tab PO DAILYCM #30 tab 11/09/17 [Multivitamin With Minerals] Thiamine Hydrochloride [Vitamin B1] 100 mg PO DAILYCM #30 tab 11/09/17 Folic Acid 1 mg PO BID #60 tab 12/20/17 Lisinopril [Zestril] 40 mg PO DAILY #30 tab 12/20/17 Magnesium Oxide [Mag-Ox 400] 400 mg PO BIDCM #30 tab 12/20/17 Metoprolol(XL)Succ [Toprol Xl 50 mg PO DAILY #30 tab 12/20/17 (Beta Balta)] Pantoprazole Sodium [Protonix] 40 mg PO DAILY #30 tab 12/20/17 Sertraline HCl [Zoloft] 100 mg PO DAILY #30 tab 12/20/17 busPIRone [Buspar] 5 mg PO TID #90 tab 12/20/17 lipase/protease/amylase 6,000 units PO TIDCM #90 cap 12/20/17 [Pancrelipase (5000-17,000-27,000)] levETIRAcetam tablet [Keppra 500 mg PO BID #60 tab 01/15/18 tablet] Surgical History: - - Cholecystectomy with common bile duct follow-up repair status postoperative complication, , bilateral tubal ligation. Psychiatric History: Anxiety, Depression VERIFICATION SPECIALIST History: No pertinent VERIFICATION SPECIALIST history Lives: With Family - Patient lives with her sister and her children as well as her sister's children. Smoking Status: Current every day smoker - She smokes presently 1 pack per day. Tobacco Use: Cigarettes Alcohol: Sober - Patient notes sober since September 2017 although has had 2 short relapse periods but is currently again sober. Drugs: None - *Family History Maternal History Items: Heart Disease, Hypertension Paternal History Items: Heart Disease, Hypertension, - - Father recently passed approximately 2 weeks prior to current presentation secondary to cardiac etiology. Review of Systems Constitutional: Reports: Anorexia, Malaise, Weakness, Fatigue. Denies: Chills, Fever, Weight Change HEENT: Denies: Head Aches, Sinus Congestion, Sinus Drainage Cardiovascular: Denies: Chest Pain, Palpitations Respiratory: Denies: Cough, Shortness of breath at rest, Sputum production Gastrointestinal: Reports: Abdominal Pain, Nausea, Vomiting Genitourinary: Denies: Dysuria Musculoskeletal: Reports: Back Pain. Denies: Joint Pain, Joint Tenderness Skin: Denies: Rash, Wounds Neurological: Denies: Numbness, Tingling, Focal weakness Psychiatric: Reports: Anxiety, Depression. Denies: Homicidal Ideations, Suicidal Ideations Hematologic/ Lymphatic: Reports: Anemia, Easy Bruising, Easy Bleeding VTE Information - Inpt Only VTE Present on Admission: No VTE Mechan Device Prophylaxis: SCD's VTE Pharm Prophylaxis ordered?: No Reason prophylaxis not ordered:: Medical Contraindication Patient Problems: Active and Suspected Problems Abnormal liver function test (Acute) Nausea & vomiting (Acute) Subjective: Seated upright in the ED bed, fatigued appearance, notes nausea mildly improving since ED administration of IV Zofran. Objective: Physical Examination: General: awake, alert, oriented x 3 and cooperative, seated upright in the ED bed, fatigued appearance. Skin: normal color, turgor, no icterus, cyanosis. HEENT: AT/NC, EOMI, PERRLA, dry MM, no carotid bruits or JVD noted. Lungs: CTA bilaterally, moderate effort, mild decrease BL bases, no rales, ronchi or wheezing. Heart: Regular rate and rhythm; no gallop, rub audible. Abdomen: soft, mild BL UQ discomfort w/ palpation but no rebound or guarding noted, ND, hypoactive BS, mild HM. Extremities: no cyanosis, clubbing, or edema. Neurological: patient awake, alert, oriented x 3; cognitive function intact; pupils equally reactive to light and accomodation; cranial nerves II-XII grossly normal, moving all 4 extremities, no focal deficits, strength mild to moderately globally decreased secondary to acute presentation. Psychiatric: affect appears fatigued, mildly flat, no acute evidence of depressive or anxiety feelings. - Physical Exam Vital Signs Temp Pulse Resp BP Pulse Ox 98 F 90 12 171/115 H 97 02/06/18 18:37 02/06/18 20:41 02/06/18 20:41 02/06/18 20:41 02/06/18 20:41 Oxygen Delivery Method Room Air Weight: 97 lb 0.054 oz Body Mass Index (BMI) 20.9 Finger Stick Blood Glucose 127 Laboratory Tests Past 24 Hrs 02/06/18 02/06/18 02/06/18 18:50 18:50 18:50 WBC 5.7 RBC 4.64 Hgb 14.9 Hct 43.3 MCV 93.3 MCH 32.1 H MCHC 34.4 RDW 14.9 H RDW Differential 50.8 H Plt Count 48 L* MPV 10.3 Immature Gran % (Auto) 0.000 Neut % (Auto) 80.0 H Lymph % (Auto) 13.5 L [place] % (Auto) 6.5 Eos % (Auto) 0.0 Baso % (Auto) 0.0 Absolute Neuts (auto) 4.6 Absolute Lymphs (auto) 0.77 L Total Counted Not Reportable Diff Path Review May foll Platelet Estimate MKD DEC Sodium 131 L Potassium 2.3 L* Chloride 85 L Carbon Dioxide 30.0 Anion Gap 16 H BUN 8 Creatinine 0.85 Estim Creat Clear Calc 61.72 Est GFR (MDRD) Af Amer 95 Est GFR (MDRD) Non-Af 79 BUN/Creatinine Ratio 9.4 L Glucose 143 H Calcium 9.4 Total Bilirubin 2.30 H AST 424 H ALT 117 H Alkaline Phosphatase 164 H Total Protein 8.6 H Albumin 4.0 Globulin 4.6 H Albumin/Globulin Ratio 0.9 Lipase 393 Serum , Qual NEGATIVE Urine Color Urine Clarity Urine pH Ur Specific [place] Urine Protein Urine Glucose (UA) Urine Ketones Urine Occult Blood Urine Nitrite Urine Bilirubin Urine Urobilinogen Ur Leukocyte Esterase Urine RBC Urine WBC Ur Squamous Epith Cells Urine Bacteria Urine Mucus 02/06/ 20:30 WBC RBC Hgb Hct MCV MCH MCHC RDW RDW Differential Plt Count MPV Immature Gran % (Auto) Neut % (Auto) Lymph % (Auto) [place] % (Auto) Eos % (Auto) Baso % (Auto) Absolute Neuts (auto) Absolute Lymphs (auto) Total Counted Diff Path Review Platelet Estimate Sodium Potassium Chloride Carbon Dioxide Anion Gap BUN Creatinine Estim Creat Clear Calc Est GFR (MDRD) Af Amer Est GFR (MDRD) Non-Af BUN/Creatinine Ratio Glucose Calcium Total Bilirubin AST ALT Alkaline Phosphatase Total Protein Albumin Globulin Albumin/Globulin Ratio Lipase Serum , Qual Urine Color Yellow Urine Clarity Clear Urine pH 8.0 Ur Specific [place] 1.010 Urine Protein 30 H Urine Glucose (UA) Normal Urine Ketones 15 H Urine Occult Blood Negative Urine Nitrite Negative Urine Bilirubin Negative Urine Urobilinogen 4 H Ur Leukocyte Esterase 25 H Urine RBC 0 SEEN Urine WBC 0-5 SEEN Ur Squamous Epith Cells 0-5 SEEN Urine Bacteria 0 SEEN Urine Mucus 0 SEEN Assessment/Plan All Active Problems Abnormal liver function test (Acute) Nausea & vomiting (Acute) Pancytopenia (Acute) Hypomagnesemia (Acute) Dehydration (Acute) Acute kidney injury (Acute) Hypokalemia (Acute) Hyponatremia (Acute) Alcohol withdrawal (Ruled-out) URI (upper respiratory infection) (Resolved) The patient is a 37 y/o F w/ PMHx: Seizure disorder, EtOH Abuse, Chronic Pancreatitis, Chronic Pancytopenia, HTN, Anxiety and Depression who presents to the [facility] ED on 02/06/18 with history of ongoing nausea, emesis, BL UQ abdominal discomfort with inability to maintain oral intake including her medications w/ recent discharge from [facility] on 12/20/17 following seizure activity felt secondary to severe dehydration, malnutrition coupled with EtOH withdrawal. (1) Intractable nausea, emesis: Unclear specific etiology, possibly viral gastroenteritis, will admit to PCU given electrolyte disturbances, continue aggressive hydration, Anti-emetics, pain regimen PRN. (2) Hypokalemia: Admission K+ 2.3, supplementation given per ED will repeat level this evening and repeat level in AM. EKG in ED without acute findings, repeat in AM, maintain on telemetry given severity. Mag pending. (3) Elevated liver enzymes, bilirubin: Suspect likely secondary to acute presentation with intractable nausea and emesis, will aggressively hydrate and repeat levels in a.m., suspect will decrease. CT abdomen and pelvis with no acute findings with only fatty liver noted. Hepatitis panel pending. Denies any recent EtOH, notes still sober. (4) Chronic Thrombocytopenia: Admission Plt 48, prior similar, stable, trend. (5) Chronic hyponatremia: Admission sodium 131, similar to prior, hydrating, repeat in a.m. (6) Hyperglycemia: Admission glucose 143, likely stress response, trend, if remains elevated obtain hemoglobin A1c. (7) Hypertension: Continue home regimen including metoprolol, lisinopril once able to take oral intake but in the interim given serial nausea and emesis will have PRN hydralazine. (8) Chronic Pancreatitis: Lipase normal range, CT A/P without acute findings, repeat CMP in AM as noted elevated LFTs. Once tolerating po restart home creon regimen. (9) Seizure disorder: Recent admission with unremarkable EEG, plan follow-up outpatient with neurology, not allowed currently to drive, continue on Keppra but transition to IV given serial nausea and emesis. Once improved transition back to oral regimen. (10) EtOH Abuse, History of: Patient notes sober since September 2017 but has admitted to to short relapses but notes currently sober for several weeks. Hold oral MVI, thiamine and folic acid given presentation, add back once improves and can maintain oral intake. Maintain on CIWA given serial relapse history. Mag and phos pending. (11) Anxiety and Depression: Will attempt to continue buspar and sertraline, but hold if unable to take the regimen secondary to #1. (12) GERD: Famotidine. (13) DVT Prophylaxis: SCDs, defer chemoprophylaxis given thrombocytopenia. Code Visit Inpatient E&M: 96220 Init Hosp L3
[2018-02-06] MEDS: 0.9% Normal Saline 1,000 ML 999 ML IV (23:02)
[2018-02-06] MEDS: Morphine 2 MG/ML Syringe IV (23:03)
[2018-02-06] MEDS: 0.9% NaCl Peripheral Flush Adult/Peds IV (23:10)
[2018-02-06 23:14] LABS: Magnesium 1.2 mg/dL (1.6-2.6); Phosphorus 1.3 mg/dL (2.5-4.9)
[2018-02-06] MEDS: hydrALAZINE 20 MG/ML Vial 10 MG IV (23:25)
[2018-02-06] MEDS: busPIRone 5 MG Tablet PO (23:27)
[2018-02-06] MEDS: Famotidine 20 MG Tablet PO (23:28)
[2018-02-06] MEDS: 0.9% Normal Saline 1,000 ML 150 ML IV (23:28)
[2018-02-07] VITALS (23 sets, daily range): BP systolic 144–183; BP diastolic 68–126; PULSE 78–101; RESP 14–22; TEMP 36.6–37.2; O2SAT 93–97
[2018-02-07] MEDS: Metoprolol Tartrate 5 MG/5 ML Vial IV (00:30)
[2018-02-07] MEDS: 0.9% NaCl Peripheral Flush Adult/Peds IV ×3 (00:31→05:53)
[2018-02-07 05:08] LABS: Absolute Lymphocyte Count 0.84 X10^3/ul (0.83-4.51); Eosinophil# 0.03 X10^3/uL; Hematocrit 35.8 % (37-47); Lymphocyte # 0.84 X10^3/ul (4.0); Lymphocyte % 28.1 % (19-41); Mean Corp Hgb Conc 33.5 g/gl (32-36); Mean Corpuscular Hgb 32.3 pg (27.0-32.0); Mean Corpuscular Volume 96.2 fL (81-99); Mean Platelet Vol. 9.2 fl (6.2-12.0); Monocyte# 0.09 X10^3/uL; Neutrophil # 2.02 X10^3/uL (2.7-7.7); Neutrophil % 67.6 % (47-70); RBC Distribution Width CV 14.6 % (11.6-14.6); RBC Distribution Width SD 49.3 fl (35.1-43.9); Red Blood Count 3.72 M/mm3 (4.2-5.4)
[2018-02-07 05:22] LABS: Differential Indicated SCAN CRITERIA MET; POSITIVE COUNT YES; POSITIVE DIFFERENTIAL NO; POSITIVE MORPHOLOGY NO; Platelet Count 19 K/mm3 (150-450)
[2018-02-07 05:37] LABS: Differential Comment SCANNED; Platelet Estimate MKD DEC (ADEQ)
[2018-02-07 05:53] LABS: ALB/GLOB Ratio 0.8 RATIO (0.9-2.4); AST(SGOT) 232 U/L (15-37); Alanine Aminotransfer ALT/SGPT 75 U/L (13-56); Albumin, Serum 2.7 g/dL (3.2-5.0); Alkaline Phosphatase 113 U/L (45-117); Anion Gap 10 (5-15); BUN 4 mg/dL (7-18); BUN/Creat Ratio 8.8 RATIO (10-20); Chloride 98 mmol/L (98-107); Creatinine, Serum 0.46 mg/dL (0.55-1.02); EST Glomerular Filtration Rate 162 mL/min (>60); Est Glom Filt Rate - Afr Amer 196 mL/min (>60); Estimated Creatinine Clearance 121.05 ml/min; Globulin 3.3 g/dL (2.2-4.2); Glucose 81 mg/dL (74-106); Magnesium 2.8 mg/dL (1.6-2.6); Phosphorus 5.5 mg/dL (2.5-4.9); Potassium 2.6 mmol/L (3.5-5.1); Sodium Level 138 mmol/L (136-145)
[2018-02-07] MEDS: 0.9% Normal Saline 1,000 ML 150 ML IV ×3 (05:53→18:44)
[2018-02-07] MEDS: busPIRone 5 MG Tablet PO ×3 (05:53→21:45)
[2018-02-07] MEDS: Famotidine 20 MG Tablet PO ×2 (08:25→21:45)
[2018-02-07] MEDS: Sertraline 100 MG Tablet PO (08:26)
[2018-02-07] MEDS: hydrALAZINE 20 MG/ML Vial 10 MG IV ×2 (09:06→17:14)
[2018-02-07] MEDS: Ondansetron 4 MG/2 ML Vial IV (09:08)
--- NOTE | 2018-02-07 10:31 | PN_ITS ---
Patient Problems: Active and Suspected Problems Abnormal liver function test (Acute) Nausea & vomiting (Acute) Subjective: CC: Nausea and vomiting Objective: She presented with nausea ,vomiting and dehydration as well as electrolyte abnormality. She is receiving IV fluids and electrolyte replacement, her symptoms have improved. Vitals/I&O's: Vital Signs Temp Pulse Resp BP Pulse Ox 97.9 F 97 22 H 159/92 H 93 02/07/18 09:59 02/07/18 10:12 02/07/18 10:12 02/07/18 10:12 02/07/18 10:12 Oxygen Delivery Method Room Air Weight: 46.7 kg Body Mass Index (BMI) 22.2 Intake and Output for Last 24 Hours 02/05/18 02/06/18 02/07/18 23:59 23:59 23:59 Intake Total 3039 / 3039 Balance 3039 / 3039 General: Alert, Oriented x3 HEENT: Atraumatic, EOMI Oral: Moist Mucosa Neck: Supple, No JVD Lungs: Clear to auscultation, No wheeze Cardiovascular: Regular rate, Normal S1, Normal S2 Abdomen: Bowel Sounds Present, Soft, Non Tender Extremities: No edema Laboratory Results 02/06/18 23:10: Hepatitis A IgM Ab Pending, Hepatitis A Ab Total Pending, Hep Bs Antigen Pending, Hep B Core Total Ab Pending, Hep B Core IgM Ab Pending, Hepatitis C Comment Pending 02/07/18 04:55: WBC 3.0 L, RBC 3.72 L, Hgb 12.0, Hct 35.8 L, MCV 96.2, MCH 32.3 H, MCHC 33.5, RDW 14.6, RDW Differential 49.3 H, Plt Count 19 L*, MPV 9.2, Immature Gran % (Auto) 0.300, Neut % (Auto) 67.6, Lymph % (Auto) 28.1, [place] % ( Auto) 3.0, Eos % (Auto) 1.0, Baso % (Auto) 0.0, Absolute Neuts (auto) 2.0, Absolute Lymphs (auto) 0.84, Total Counted Not Reportable, Differential Comment SCANNED, Diff Path Review January, Platelet Estimate MKD 02/07/18 04:55: Sodium 138, Potassium 2.6 L*, Chloride 98, Carbon Dioxide 30.0, Anion Gap 10, BUN 4 L, Creatinine 0.46 L, Estim Creat Clear Calc 121.05, Est GFR (MDRD) Af Amer 196, Est GFR (MDRD) Non-Af 162, BUN/Creatinine Ratio 8.8 L, Glucose 81, Calcium 7.0 L, Magnesium 2.8 H, Total Bilirubin 1.40 H, AST 232 H, ALT 75 H, Alkaline Phosphatase 113, Total Protein 6.0 L, Albumin 2.7 L, Globulin 3.3, Albumin/Globulin Ratio 0.8 L 02/07/18 04:55: Phosphorus 5.5 H Current Medications Acetaminophen (Tylenol) 650 mg PO Q6H PRN PRN PRN Reason: Non-cardiac pain (mod-severe) Hydrocodone Bitart/Acetaminophen (Webb 5mg-325mg) 1 - 2 tablet PO Q6H PRN PRN PRN Reason: Moderate-severe pain Al Hydroxide/Mg Hydroxide (Mylanta Ii) 30 ml PO Q6H PRN PRN PRN Reason: Gastric burning Buspirone HCl (Buspar) 5 mg PO TID [facility] Last Admin: 02/07/18 05:53 Dose: 5 mg Famotidine (Pepcid) 20 mg PO BID [facility] Last Admin: 02/07/18 08:25 Dose: 20 mg Hydralazine HCl (Apresoline Iv) 10 mg IV Q4H PRN PRN PRN Reason: SBP > 160 Last Admin: 02/07/18 09:06 Dose: 10 mg Sodium Chloride () 250 mls @ 15 mls/hr IV .[id number] PRN PRN Reason: SALINE FLUSH Sodium Chloride () 1,000 mls @ 150 mls/hr IV .Q6H40M [facility] Last Admin: 02/07/18 05:53 Dose: 150 mls/hr Levetiracetam (Keppra Iv) 500 mg in 100 mls @ 400 mls/hr IV BID [facility] Last Admin: 02/07/18 08:31 Dose: 400 mls/hr Lorazepam (Ativan) 2 mg PO Q2H PRN PRN; Protocol PRN Reason: CIWA score > 8 but <15 Lorazepam (Ativan) 2 mg IV Q2H PRN PRN; Protocol PRN Reason: CIWA score > 8 but <15 Lorazepam (Ativan) 2 mg PO UD PRN; Protocol PRN Reason: CIWA score >/=15. Lorazepam (Ativan) 2 mg IV UD PRN; Protocol PRN Reason: CIWA score >/=15. Magnesium Hydroxide (Milk Of Magnesia) 30 ml PO DAILY PRN PRN Reason: Constipation Metoprolol Tartrate (Lopressor (Beta Balta)) 5 mg IV Q8H PRN PRN PRN Reason: SBP > 160 Last Admin: 02/07/18 00:30 Dose: 5 mg Morphine Sulfate () 1 - 2 mg IV Q4H PRN PRN PRN Reason: PAIN Last Admin: 02/06/18 23:03 Dose: 2 mg Nicotine (Nicoderm Cq (Pbkc)) 21 mg TRANSDERM. DAILY DOV Last Admin: 02/07/18 08:30 Dose: 21 mg Nutritional Formula (Lactose Free) (Ensure Clear) 120 ml PO 4X/DAY DOV Ondansetron HCl (Zofran) 4 mg IV Q6H PRN PRN PRN Reason: NAUSEA Last Admin: 02/07/18 09:08 Dose: 4 mg Pancrelipase (Creon Dr 6,000 Unit Capsule) 1 capsule PO TIDCM DOV Last Admin: 02/07/18 08:30 Dose: 1 capsule Promethazine HCl (Phenergan) 12.5 mg IV Q6H PRN PRN PRN Reason: NAUSEA/VOMITING Sertraline HCl (Zoloft) 100 mg PO DAILY DOV Last Admin: 02/07/18 08:26 Dose: 100 mg Sodium Chloride () 5 - 30 ml IV UD PRN PRN Reason: SALINE FLUSH Last Admin: 02/07/18 05:53 Dose: 10 ml Medical Necessity - Tobacco Use Smoking Status: Current every day smoker Tobacco Use: Cigarettes Assessment/Plan All Active Problems Abnormal liver function test (Acute) Nausea & vomiting (Acute) Pancytopenia (Acute) Hypomagnesemia (Acute) Dehydration (Acute) Acute kidney injury (Acute) Hypokalemia (Acute) Hyponatremia (Acute) Alcohol withdrawal (Ruled-out) URI (upper respiratory infection) (Resolved) 1. Acute gastroenteritis; this is improving, we will continue anti-emetics and IV fluids. 2. severe Hypokalemia this will be replaced through the the IV route. 3. Acute on chronic thrombocytopenia; in the setting of alcohol use and elevated liver enzymes, the patient most likely has developed cirrhosis, will obtain right upper quadrant to evaluate her hepatic echotexture. 4. Acute hepatitis; viral hepatitis profile has been ordered . 5. Seizure disorder; she is on Keppra 6. Chronic alcohol use disorder; will monitor closely for withdrawal symptoms, she is on CIWA protocol. 7. Anxiety and Depression; we will continue Buspar and Zoloft. 8. Dehydration from #1; will continue on IV fluids. Code Visit Inpatient E&M: 94419 Subs Hosp L2
--- NOTE | 2018-02-07 11:04 | CASEMGMT ---
Addendum entered by July Vega 02/07/18 11:22: SW received a call back from Afia at Dr. Michelle's office, SW set up appt w/PCP for 02/26 at 9:30am and set up van pickup at 9:15am. Pt is sleeping now, SW wrote down all information for pt and left it at her bedside, will let pt know when she wakes up about the appt. YIN Carver-Bettye, DATA ENTRY SPECIALIST Original Note: SW spoke w/pt in room in regard to mental health, substance abuse, and counseling follow up. Pt states still living w/her sister and her sister's child, and her four children. Pt states has not been drinking for a few months. Pt has not followed up with any kind of counseling, states transportation is an issue. Pt states is on Zoloft and Buspar, and these meds are helping her, states is doing okay. Pt also states however her father just two days ago, support given to pt. Pt is not seeing a PCP, she states the doctors here have prescribed these meds. Pt is willing to follow up w/a PCP, but again states transportation is an issue. Pt states she does have an appointment w/Dr. Bansal, but it is not until March, she is on a wait list for cancelations. Pt denies being homicidal or suicidal, states everything at home is fine, states the children are well. SW spoke w/pt about following up w/counseling, pt is willing to do this, she thinks there may be a program that would pick her up, but is not certain of the name. SW explained will look into some programs w/transportation, and also bring her in information for the cab voucher program w/[employer], pt is interested in applying for this. SW called [employer] [facility] [employer], both programs can help w/transportation. SW called Dr. Michelle's office, message left to call this SW back to make an appt, and SW will see if it's possible to set up van transport for the appointment as well. SW gave pt information for the taxi voucher program, the hospital van, [employer] [facility] [employer]. SW also explained is working on setting up a PCP appt for her as well, will let her know if this can be arranged for her and will give her this information also. FLORY Carver, DATA ENTRY SPECIALIST
[2018-02-07 14:27] LABS: Pathologist Review Reviewed
[2018-02-07 14:28] LABS: Pathologist Review Reviewed
--- NOTE | 2018-02-07 14:43 | CASEMGMT ---
SW spoke w/pt again this afternoon, reviewed the appointment information w/pt. Pt thanked SW for making the appointment, she plans to go to the appointment. SW explained to pt if for some reason she cannot make the appt to cancel, as she had a no show in November. SW explained that if pt no shows again, they may not be willing to make another appt. Pt states understanding. SW also encouraged pt to follow up w/one of the programs for counseling. SW did let physician know earlier about pt's father and she would like to be discharged tomorrow, and physician said pt may not be ready. SW let pt know, she states she will leave anyway as she is not going to miss the services. SW offered support. Otherwise, no further social service needs at this time, pt has information for transportation assist, 2 agencies for counseling that provide transportation, a PCP appt and van transport set up for that appt. FLORY Carver, SUBSTITUTE BUS DRIVER
--- NOTE | 2018-02-07 15:55 | NURSING ---
report ccalled to pcu for transfer to room 123
--- NOTE | 2018-02-07 16:11 | US_ITS ---
US Abdomen Limited (quadrant) INDICATION: RUQ PAIN COMPARISON: CT February 06, 2018 TECHNIQUE: Ultrasonographic grayscale and limited Doppler investigation of the right upper quadrant FINDINGS: The liver is enlarged, measuring 19 cm and demonstrates pneumobilia. The parenchyma is diffusely hyperechoic compatible with fatty infiltration. The gallbladder is surgically absent. Views of the pancreas are limited. The right kidney measures 12 cm in length and is without evidence of hydronephrosis. US/Abdomen Limited IMPRESSION: Pneumobilia. Hepatic steatosis and hepatomegaly. Status post cholecystectomy. Pancreas not well seen. at 1951 Reported and signed by: Ariane Cancino MD Electronically Signed: Ariane Cancino MD at 19:49 EDT Tel , Service support ,
--- NOTE | 2018-02-07 16:30 | NURSING ---
In PCU 123 per chair, ICU staff in attendance
[2018-02-07 19:40] LABS: Anion Gap 11 (5-15); BUN 2 mg/dL (7-18); BUN/Creat Ratio 3.4 RATIO (10-20); Calcium,Total 7.3 mg/dL (8.5-10.1); Chloride 102 mmol/L (98-107); Creatinine, Serum 0.58 mg/dL (0.55-1.02); EST Glomerular Filtration Rate 121 mL/min (>60); Est Glom Filt Rate - Afr Amer 147 mL/min (>60); Estimated Creatinine Clearance 96.01 ml/min; Glucose 111 mg/dL (74-106); Potassium 2.5 mmol/L (3.5-5.1); Sodium Level 137 mmol/L (136-145)
[2018-02-08] VITALS (10 sets, daily range): BP systolic 152–180; BP diastolic 104–114; PULSE 82–98; RESP 15–18; TEMP 36.6–36.8; O2SAT 93–97
[2018-02-08] MEDS: 0.9% Normal Saline 1,000 ML 150 ML IV ×2 (01:09→06:56)
[2018-02-08] MEDS: hydrALAZINE 20 MG/ML Vial 10 MG IV (03:47)
[2018-02-08] MEDS: busPIRone 5 MG Tablet PO (06:26)
[2018-02-08 07:07] LABS: Absolute Lymphocyte Count 0.33 X10^3/ul (0.83-4.51); Absolute Neutrophil Count 2.4 X10^3/uL (2.0-7.7); Eosinophil# 0.13 X10^3/uL; Eosinophils% 4.4 % (0-5); Hematocrit 38.2 % (37-47); Hemoglobin 12.7 g/dl (12.0-15.0); Lymphocyte # 0.33 X10^3/ul (4.0); Lymphocyte % 11.2 % (19-41); Mean Corp Hgb Conc 33.2 g/gl (32-36); Mean Corpuscular Volume 96.2 fL (81-99); Mean Platelet Vol. 11.1 fl (6.2-12.0); Monocyte# 0.08 X10^3/uL; Monocyte% 2.7 % (0-10); Neutrophil # 2.39 X10^3/uL (2.7-7.7); Neutrophil % 81.4 % (47-70); RBC Distribution Width CV 14.8 % (11.6-14.6); RBC Distribution Width SD 52.1 fl (35.1-43.9); Red Blood Count 3.97 M/mm3 (4.2-5.4); White Blood Count 2.9 K/mm3 (4.4-11.0)
[2018-02-08 07:18] LABS: Differential Indicated SCAN CRITERIA MET; POSITIVE COUNT YES; POSITIVE DIFFERENTIAL YES; POSITIVE MORPHOLOGY NO; Platelet Count 17 K/mm3 (150-450)
[2018-02-08 07:43] LABS: Anion Gap 11 (5-15); BUN 1 mg/dL (7-18); BUN/Creat Ratio 2.8 RATIO (10-20); Calcium,Total 7.7 mg/dL (8.5-10.1); Chloride 104 mmol/L (98-107); Creatinine, Serum 0.36 mg/dL (0.55-1.02); EST Glomerular Filtration Rate 212 mL/min (>60); Est Glom Filt Rate - Afr Amer 256 mL/min (>60); Estimated Creatinine Clearance 154.68 ml/min; Glucose 103 mg/dL (74-106); Potassium 2.6 mmol/L (3.5-5.1); Sodium Level 139 mmol/L (136-145)
[2018-02-08] MEDS: Famotidine 20 MG Tablet PO (10:00)
[2018-02-08] MEDS: Sertraline 100 MG Tablet PO (10:01)
[2018-02-08] MEDS: 0.9% NaCl Peripheral Flush Adult/Peds IV (10:13)
[2018-02-08] MEDS: Metoprolol Tartrate 5 MG/5 ML Vial IV (10:13)
--- NOTE | 2018-02-08 12:14 | NURSING ---
The pt has left AMA. The paperwork was signed and Dr. Alejo is aware. The patients father has past away and his is today. Myself and Dr. Alejo made the pt very aware of her risks by leaving AMA. The pt BP is elevated, her K+ is 2.6 and her Platelets are 17. The pt verbalized that she understands this risk of her leaving AMA and will readmit herself when her fathers is over. The pt received a total of 80meq PO K+ and 20Meq IV. The pt left before the other two bags could be given. The pt had two IV's and they were d.c with catheter intact. The pt was instructed to last picker her K+ prescription at the inpatient pharmacy.
--- NOTE | 2018-02-09 08:05 | PCM.DC.SUM ---
Discharge Date and Diagnosis Date of Admission: 02/06/18 Date of Discharge: 02/08/18 - Secondary Discharge Diagnosis Chronic Problems Thrombocytopenia (Chronic) History of alcoholism (Chronic) Anxiety and depression (Chronic) Chronic pancreatitis (Chronic) Folate deficiency (Chronic) Essential hypertension (Chronic) Hospital Course and Treatment Operations: None Summary of Care Provided: The patient is a 37-year-old female with past medical history of seizure disorder, alcohol use disorder, chronic Pancreatitis, Chronic Pancytopenia, HTN, Anxiety and Depression who presented the [facility] ED on 02/06/18 with history of nausea, emesis, BL UQ abdominal discomfort with inability to maintain oral intake including her medications . To have severe hypokalemia, dehydration and thrombocytopenia as well as elevated transaminases. Was admitted to the hospital and given intravenous hydration and electrolyte replacement with IV potassium chloride potassium remained low. Apparently signed out AGAINST MEDICAL ADVICE as she needed to attend her father's . She was recommended to return to the emergency room if need be. Home Medications: Medications to take at Discharge Multivitamins,Ther W-Minerals [Multivitamin With Minerals] 1 tab PO DAILYCM #30 tab 11/09/17 Thiamine Hydrochloride [Vitamin B1] 100 mg PO DAILYCM #30 tab 11/09/17 Folic Acid 1 mg PO BID #60 tab 12/20/17 Lisinopril [Zestril] 40 mg PO DAILY #30 tab 12/20/17 Magnesium Oxide [Mag-Ox 400] 400 mg PO BIDCM #30 tab 12/20/17 Metoprolol(XL)Succ [Toprol Xl (Beta Balta)] 50 mg PO DAILY #30 tab 12/20/17 Pantoprazole Sodium [Protonix] 40 mg PO DAILY #30 tab 12/20/17 Sertraline HCl [Zoloft] 100 mg PO DAILY #30 tab 12/20/17 busPIRone [Buspar] 5 mg PO TID #90 tab 12/20/17 lipase/protease/amylase [Pancrelipase (5000-17,000-27,000)] 6,000 units PO TIDCM #90 cap 12/20/17 levETIRAcetam tablet [Keppra tablet] 500 mg PO BID #60 tab 01/15/18 Potassium Chloride [K-Dur] 40 meq PO DAILYCM #20 tab 02/08/18 Following Prescrptions Were Given to Patient: Potassium Chloride [K-Dur] 40 meq PO DAILYCM #20 tab Primary Care Physician: Care Physician,No Primary [Primary Care Provider] - Please Follow Up With: Jun Mccain MD When: Sunday Medical Necessity - Tobacco Use Smoking Status: Current every day smoker Tobacco Use: Cigarettes Meaningful Use Info Meaningful Use Diagnoses (Choose all that apply): None applicable Code Visit Inpatient E&M: 14505 Disch Hosp
--- NOTE | 2018-02-09 08:09 | DS.PCM_ITS ---
Discharge Date and Diagnosis Date of Admission: 02/06/18 Date of Discharge: 02/08/18 - Secondary Discharge Diagnosis Chronic Problems Thrombocytopenia (Chronic) History of alcoholism (Chronic) Anxiety and depression (Chronic) Chronic pancreatitis (Chronic) Folate deficiency (Chronic) Essential hypertension (Chronic) Hospital Course and Treatment Operations: None Summary of Care Provided: The patient is a 37-year-old female with past medical history of seizure disorder, alcohol use disorder, chronic Pancreatitis, Chronic Pancytopenia, HTN , Anxiety and Depression who presented the [facility] ED on 02/06/18 with history of nausea, emesis, BL UQ abdominal discomfort with inability to maintain oral intake including her medications . To have severe hypokalemia, dehydration and thrombocytopenia as well as elevated transaminases. Was admitted to the hospital and given intravenous hydration and electrolyte replacement with IV potassium chloride potassium remained low. Apparently signed out AGAINST MEDICAL ADVICE as she needed to attend her father' s . She was recommended to return to the emergency room if need be. Home Medications: Medications to take at Discharge Multivitamins,Ther W-Minerals [Multivitamin With Minerals] 1 tab PO DAILYCM #30 tab 11/09/17 Thiamine Hydrochloride [Vitamin B1] 100 mg PO DAILYCM #30 tab 11/09/17 Folic Acid 1 mg PO BID #60 tab 12/20/17 Lisinopril [Zestril] 40 mg PO DAILY #30 tab 12/20/17 Magnesium Oxide [Mag-Ox 400] 400 mg PO BIDCM #30 tab 12/20/17 Metoprolol(XL)Succ [Toprol Xl (Beta Balta)] 50 mg PO DAILY #30 tab 12/20/17 Pantoprazole Sodium [Protonix] 40 mg PO DAILY #30 tab 12/20/17 Sertraline HCl [Zoloft] 100 mg PO DAILY #30 tab 12/20/17 busPIRone [Buspar] 5 mg PO TID #90 tab 12/20/17 lipase/protease/amylase [Pancrelipase (5000-17,000-27,000)] 6,000 units PO TIDCM #90 cap 12/20/17 levETIRAcetam tablet [Keppra tablet] 500 mg PO BID #60 tab 01/15/18 Potassium Chloride [K-Dur] 40 meq PO DAILYCM #20 tab 02/08/18 Following Prescrptions Were Given to Patient: Potassium Chloride [K-Dur] 40 meq PO DAILYCM #20 tab Primary Care Physician: Care Physician,No Primary [Primary Care Provider] - Please Follow Up With: Jun Mccain MD When: Sunday Medical Necessity - Tobacco Use Smoking Status: Current every day smoker Tobacco Use: Cigarettes Meaningful Use Info Meaningful Use Diagnoses (Choose all that apply): None applicable Code Visit Inpatient E&M: 27916 Disch Hosp
[2018-02-20 10:51] LABS: Pathologist Review Reviewed
== END 2018-02-08 12:20 | disposition left against medical advice (07) | DRG 296 ==
LOC: ED 19:14 → ICU 21:46 → PCU 02-07 16:29
PROVIDERS: Admitting Provider Family Medicine; Emergency Provider Emergency Medicine; Visit Provider Internal Medicine
DX: E86.0 Dehydration (principal); D69.6 Thrombocytopenia, unspecified; E87.6 Hypokalemia; E87.1 Hypo-osmolality and hyponatremia; G40.909 Epilepsy, unspecified, not intractable, without status epilepticus; I10 Essential (primary) hypertension; F17.210 Nicotine dependence, cigarettes, uncomplicated; K86.1 Other chronic pancreatitis; E53.8 Deficiency of other specified B group vitamins; F41.9 Anxiety disorder, unspecified; F32.9 Major depressive disorder, single episode, unspecified; F10.21 Alcohol dependence, in remission; R74.0 Nonspecific elevation of levels of transaminase and lactic acid dehydrogenase [LDH]; K52.9 Noninfective gastroenteritis and colitis, unspecified
CPT/HCPCS: 36415; 74177; 76705; 80048; 80053; 81001; 83690; 83735; 84100; 84703; 85025; 86704; 86705; 86706; 86708; 86709; 86803; 87340; 93005; 97802; 99282; J7030; J7050; Q9967; A4216; J2405